=== PATIENT | male | born 1960 | race Caucasian/White ===

== ENCOUNTER → 2017-06-23 | Outpatient (CLI) | payer BC ==
--- NOTE | 2017-06-23 15:13 | PN ---
PROGRESS NOTE A 57-year-old male patient is being seen in [facility] up [facility] to discuss results of the sleep study. Note that the patient presented to me because of concerns of obstructive sleep apnea. He is known to have valvular heart disease. He has also has had multiple other medical problems including, hyperlipidemia, Hodgkin disease, gout and hypothyroidism. The patient underwent a sleep study back in February of 2017. In summary the patient has mild disease with an AHI of 13, slightly worse in the supine body position. No significant nocturnal oxygen desaturation. No significant variability in heart rate. The patient has some degree of sleep fragmentation and arousals throughout the night. Mild periodic limb movements were also noted. On today's evaluation, I discussed the findings with the patient. He states that he is not having any major hypersomnia or sleepiness. He has lost a few pounds. His current [place] score is at 8. He is exploring other options. He is not into the CPAP therapy at this point in time. He does not drink alcoholic beverages at nighttime. He is averaging around 7 hours of sleep at night. He is waking up rather refreshed without having to fall asleep during day-to-day activities. REVIEW OF SYSTEMS: No weight loss or weight gain. No headaches. No change in mental status. No cough or sputum production. No nausea, vomiting, diarrhea, no frequency or urgency. No motor vehicle accidents because of feeling tired and fatigued. No anxiety or depression. No allergic rhinitis or sinus disease at this point. PHYSICAL EXAMINATION: His BP is 107/66, pulse 86, respirations 16, temperature 16, temp 97.8, saturation 96% on room air. BMI 31.5. Weight is 223. Height is 70 inches. An [place] Score is at 8. BMI 31.5. GENERAL APPEARANCE: Calm, comfortable. Head is atraumatic, normocephalic. NECK: Supple. Mallampati class IV. There is no goiter or neck mass. LUNGS: Clear to auscultation. HEART: Sounds regular rhythm. Normal S1, S2. No S3. No murmurs. ABDOMEN: Soft, nontender. No organomegaly. EXTREMITIES: No edema. No cyanosis or clubbing. NEUROLOGIC: Alert and oriented x3. No focal neurological deficits. PSYCHIATRIC: Negative for anxiety or depression. IMPRESSION: 1. Mild obstructive sleep apnea with an AHI of 13 slightly worse in the supine body position. 2. Hypersomnia initial [place] score was 12, currently is down to 8 and the patient is feeling relatively fine for the time being. 3. Obesity with a BMI of 32. 4. Valvular heart disease. 5. Hypothyroidism. 6. Gout. 7. Hyperlipidemia. 8. Hodgkin disease. 9. Allergic rhinitis. PLAN: Discussed options for treatment. The patient was asked to sleep in a sidewise body position. Offered CPAP therapy versus oral appliance. The patient would like to discuss this with his dentist and see if oral appliance will be 1 option for him in regards to his mild obstructive sleep apnea. He is not having major hypersomnia and sleepiness. He would rather wait on treatment for CPAP. I think it is fine as long as the patient is not having any major daytime hypersomnia or sleepiness for the time being. He will be asked to contact me back if his symptoms get worse. Meanwhile going to dentists and fitting oral appliance may be one option in treating mild obstructive sleep apnea. Tight control of cardiovascular risk factors. We will continue to follow and see me if needed. JACQUELINE / IJN: [id number] /
== END ==
LOC: SLEEP 13:45
PROVIDERS: ATTEND Internal Medicine Critical Care Medicine
DX: G47.33 Obstructive sleep apnea (adult) (pediatric) (principal); G47.10 Hypersomnia, unspecified; E66.9 Obesity, unspecified; I08.0 Rheumatic disorders of both mitral and aortic valves; E03.9 Hypothyroidism, unspecified; E78.5 Hyperlipidemia, unspecified; M10.9 Gout, unspecified; C81.90 Hodgkin lymphoma, unspecified, unspecified site; J30.9 Allergic rhinitis, unspecified; Z68.32 Body mass index [BMI] 32.0-32.9, adult

== ENCOUNTER → 2019-04-30 | Outpatient (CLI) | payer BC ==
--- NOTE | 2019-04-30 14:12 | CT ---
EXAMINATION TYPE: CT brain wo con DATE OF EXAM: 04/30/2019 COMPARISON: None HISTORY: Headaches with prior injury 6 weeks ago and history of Hodgkin's lymphoma CT DLP: 2045.7 mGycm Automated exposure control for dose reduction was used. Helical acquisition through the brain using d epartmental protocol FINDINGS: The calvarium is intact. Paranasal sinuses and mastoid air cells as visualized are normal. There is n o hemorrhage or hydrocephalus. Brain volume is age appropriate. Basal ganglia calcifications are note d. There are cerebral vascular calcifications. IMPRESSION: NO ACUTE ABNORMALITIES EVIDENT
== END | disposition home or self-care (01) ==
LOC: RADCTMAIN 12:03
PROVIDERS: ATTEND Internal Medicine
DX: R51 Headache (principal); Z85.71 Personal history of Hodgkin lymphoma
CPT/HCPCS: 70450

== ENCOUNTER 2019-05-06 11:13 | Day surgery (SDC) | payer BC ==
[2019-05-04 11:49] VITALS: BMI 29.8
[~2019-05-06 11:13] MED LIST: LACTATED RINGERS 1,000 ML IV SCH; LIDOCAINE 1% 20 ML VIAL (10MG/ML) FOR IV START INTRADERMA PRN
[2019-05-06 11:59] VITALS: TEMP 97.1
[2019-05-06] MEDS ORDERED: PROPOFOL 10 MG/ML 20 ML VIAL IV ONE (12:50)
--- NOTE | 2019-05-06 13:13 | P.PCN ---
Date of Procedure: 05/06/19 Procedure(s) Performed: BRIEF HISTORY: Patient is a 59-year-old pleasant white male scheduled for an elective colonoscopy as a part of screening for colorectal neoplasia PROCEDURE PERFORMED: Colonoscopy with biopsy. PREOPERATIVE DIAGNOSIS: screening for colon cancer IV sedation per Anesthesia. PROCEDURE: After informed consent was obtained, the patient, was brought into the endoscopy unit. IV sedation was administered by Anesthesia under continuous monitoring. Digital rectal examination was normal. Initially the Olympus CF-160 flexible video colonoscope was then inserted in the rectum, gradually advanced into the cecum without any difficulty. Careful examination was performed as the scope was gradually being withdrawn. Ileocecal valve and the appendiceal orifice were visualized and appeared normal. Prep was excellent. Mucosa of the cecum, ascending colon,appeared normal. In the transverse colon there was a 2 mm sessile polyp removed by cold biopsy. In the sigmoid colon dear was another 2-3 mm polyp that was removed by cold biopsy. Rest of the transverse colon, descending colon, sigmoid colon, and rectum appeared normal. Retroflexion was performed in the rectum and no lesions were seen. The patient tolerated the procedure well. IMPRESSION: 2 mm transverse colon polyp status post removal by cold biopsy 2-3 mm sigmoid: Polyp status post removal by cold biopsy Rest of the colon appeared normal RECOMMENDATIONS: Findings of this examination were discussed with the patient as well as his family. He was advised to follow with the biopsy results. If the biopsy confirms presence of adenoma, he can have a repeat colonoscopy in 5 years.
[2019-05-06 13:27] VITALS: BP 119/72; PULSE 89; RESP 16
== END 2019-05-06 14:15 | disposition home or self-care (01) ==
LOC: ORWHC2ENDO 11:13
PROVIDERS: ATTEND Internal Medicine Gastroenterology
DX: Z12.11 Encounter for screening for malignant neoplasm of colon (principal); D12.5 Benign neoplasm of sigmoid colon; D12.3 Benign neoplasm of transverse colon; I10 Essential (primary) hypertension; E78.5 Hyperlipidemia, unspecified; E07.9 Disorder of thyroid, unspecified; Z79.899 Other long term (current) drug therapy; Z85.71 Personal history of Hodgkin lymphoma; Z79.890 Hormone replacement therapy
CPT/HCPCS: 88305; 45380; J2704

== ENCOUNTER 2019-06-23 07:40 | Day surgery (SDC) | payer BC ==
[2019-06-21 11:44] VITALS: BMI 31.4
[2019-06-23] MEDS ORDERED: SODIUM CHLORIDE 0.9% 500 ML 500 ML IV ONE (07:59)
[2019-06-23 08:30] VITALS: TEMP 97.6
[2019-06-23] MEDS ORDERED: fentaNYL (PF) 50 MCG/ML 2 ML AMP ONE (08:38)
[2019-06-23] MEDS ORDERED: BENZOCAINE SPRAY 1 CAN TOPICAL ONE (09:04)
[2019-06-23] MEDS ORDERED: MIDAZOLAM 2 MG/2 ML VIAL IV ONE ×2 (09:28)
[2019-06-23] MEDS ORDERED: fentaNYL (PF) 50 MCG/ML 2 ML AMP IV ONE (09:29)
[2019-06-23] MEDS ORDERED: FEXOFENADINE HCL 180 MG PO PRN (09:51)
[2019-06-23] MEDS ORDERED: SODIUM CHLORIDE 0.9% 1,000 ML IV SCH (10:00)
--- NOTE | 2019-06-23 10:16 | ECHOT ---
TRANSESOPHAGEAL ECHOCARDIOGRAM INDICATION: Evaluation of aortic valve. PROCEDURE: After explaining the procedure to the patient its risks and the complications, his blood pressure, heart rate, O2 saturation was monitored. The throat was sprayed with Cetacaine. He received 3 mg intravenous Versed, 50 mcg intravenous fentanyl. The probe was introduced esophagus without difficulties. Images were obtained. Following that, the probe was removed. There was no immediate complication. FINDINGS: Left atrial size is mildly dilated. Left atrial appendage is normal. Left ventricular size is normal. The overall systolic function is mildly impaired with ejection fraction of 50%. The aortic valve is a tricuspid valve calcified with a valve area is 1.3 centimeters square by planimetry. The mitral valve revealed mild calcification of mitral valve leaflets. The tricuspid valve is normal. Pulmonic valve is normal. Descending thoracic aorta appears to be normal. Contrast bubble study revealed no evidence of shunting across the interatrial septum with Valsalva maneuver. There was no pericardial effusion. Doppler pulse wave and color Doppler obtained revealed moderate mitral and aortic regurgitation with mild tricuspid regurgitation. The peak gradient across the aortic valve was 23 mmHg with a mean of 14 mmHg. There was no shunting by color Doppler study. CONCLUSION: 1. Normal left ventricular size with ejection fraction 50%. 2. Mildly dilated left atrium. 3. Tricuspid aortic valve with mild to moderate aortic stenosis and moderate aortic regurgitation. 4. Moderate mitral regurgitation. 5. Mild tricuspid regurgitation. 6. Normal appearance of the descending thoracic aorta. 7. There was no shunting across the interatrial septum. MMODL / IJN: [id number] /
[2019-06-23 10:17] VITALS: RESP 16
[2019-06-23 10:30] VITALS: BP 133/83; PULSE 107
[2019-06-23] MEDS ORDERED: NON FORMULARY DRUG (Omega-3 Fatty Acids [Omega-3] 1,000 MG) PO SCH (21:00)
[2019-06-24] MEDS ORDERED: LEVOTHYROXINE 50 MCG TAB PO SCH (09:00)
[2019-06-24] MEDS ORDERED: LISINOPRIL 2.5 MG TAB PO SCH (09:00)
[2019-06-24] MEDS ORDERED: ATORVASTATIN 40 MG TAB PO SCH (09:00)
[2019-06-24] MEDS ORDERED: METOPROLOL TARTRATE 25 MG TAB PO SCH (09:00)
[2019-06-24] MEDS ORDERED: NON FORMULARY DRUG (Omeprazole [Omeprazole] 20 MG) PO SCH (09:00)
[2019-06-24] MEDS ORDERED: EZETIMIBE 10 MG TAB PO SCH (09:00)
== END 2019-06-23 10:50 | disposition home or self-care (01) ==
LOC: CATHCVL 07:40
PROVIDERS: ATTEND Internal Medicine Interventional Cardiology
DX: I08.3 Combined rheumatic disorders of mitral, aortic and tricuspid valves (principal); I42.8 Other cardiomyopathies; I10 Essential (primary) hypertension; E78.2 Mixed hyperlipidemia; G47.33 Obstructive sleep apnea (adult) (pediatric); M25.50 Pain in unspecified joint; F17.210 Nicotine dependence, cigarettes, uncomplicated; Z79.899 Other long term (current) drug therapy; Z79.890 Hormone replacement therapy
CPT/HCPCS: 93312; 93320; 93325; J2250; J3010

== ENCOUNTER → 2019-10-06 | Outpatient (CLI) | payer BC | END | disposition home or self-care (01) | LOC: LABWHC1 14:02 | PROVIDERS: ATTEND Internal Medicine | DX: R06.02 Shortness of breath (principal) | CPT/HCPCS: 36415; 86769 ==

== ENCOUNTER 2020-01-17 05:54 | Day surgery (SDC) | payer BC ==
[2020-01-16 10:21] VITALS: BMI 31.1
[2020-01-17] MEDS ORDERED: ASPIRIN 325 MG TAB PO STA (05:57)
[2020-01-17] MEDS ORDERED: ALPRAZolam 0.25 MG TAB PO PRN (05:57)
[2020-01-17] MEDS ORDERED: NITROGLYCERIN SL TABS 0.4 MG TAB SUBLINGUAL PRN (05:57)
[2020-01-17] MEDS ORDERED: SODIUM CHLORIDE 0.9% 1,000 ML in EMPTY BAG 1 BAG IV ONE (05:57)
[2020-01-17] MEDS ORDERED: ATORVASTATIN 80 MG TAB PO STA (05:57)
[2020-01-17] MEDS ORDERED: ALPRAZolam 0.5 MG TAB PO PRN (05:57)
[2020-01-17] MEDS ORDERED: ASPIRIN 81 MG ONE (06:15)
[2020-01-17 06:23] VITALS: RESP 16; TEMP 98.6
[2020-01-17] MEDS ORDERED: SODIUM CHLORIDE 0.9% 1,000 ML IV ONE (06:23)
[2020-01-17 06:29] LABS: Basophils # (A) 0.1 k/uL (0-0.2); Basophils % (A) 1 %; Eosinophils # (A) 0.3 k/uL (0-0.7); Eosinophils % (A) 4 %; HGB 15.3 gm/dL (13.0-17.5); Lymphocytes # (A) 2.8 k/uL (1.0-4.8); Lymphocytes % (A) 32 %; MCH 30.2 pg (25.0-35.0); MCHC 34.1 g/dL (31.0-37.0); MCV 88.8 fL (80.0-100.0); Mean Platelet Volume 9.1; Monocytes # (A) 0.8 k/uL (0-1.0); Monocytes % (A) 9 %; Neutrophils # (A) 4.6 k/uL (1.3-7.7); Neutrophils % (A) 51 %; Platelet Count 260 k/uL (150-450); RBC 5.07 m/uL (4.30-5.90); RDW 14.5 % (11.5-15.5)
[2020-01-17 06:41] LABS: African American GFR (CKD) >90 (>60 ml/min/1.73 sqM); Anion Gap 11 mmol/L; Blood Urea Nitrogen 22 mg/dL (9-20); Calcium 9.4 mg/dL (8.4-10.2); Carbon Dioxide 26 mmol/L (22-30); Chloride 104 mmol/L (98-107); Glucose 138 mg/dL (74-99); Non-African American GFR(CKD) >90 (>60 ml/min/1.73 sqM); Potassium 4.3 mmol/L (3.5-5.1); Sodium 141 mmol/L (137-145)
[2020-01-17] MEDS ORDERED: fentaNYL (PF) 50 MCG/ML 2 ML AMP IV ONE (07:27)
[2020-01-17] MEDS ORDERED: LIDOCAINE 1% INJ 10MG/ML (20 ML MDV) SQ ONE (07:31)
[2020-01-17] MEDS ORDERED: MIDAZOLAM 2 MG/2 ML VIAL IVP ONE (07:32)
[2020-01-17] MEDS: VERAPAMIL SYRINGE (5 MG/10 ML) INTRAARTER ONE ×2 (07:34→08:04)
[2020-01-17] MEDS ORDERED: HEPARIN SODIUM 1,000 UN/ML (10ML VL) IV ONE (07:41)
[2020-01-17] MEDS ORDERED: NITROGLYCERIN 1000MCG/10ML SYRINGE INTRACORON ONE (07:42)
[2020-01-17] MEDS ORDERED: IOPAMIDOL-370 125ML BTL INJ ONE (07:52)
[2020-01-17] MEDS ORDERED: ADENOSINE 90 MG in SODIUM CHLORIDE 0.9% 60 ML IVP ONE (08:00)
[2020-01-17] MEDS ORDERED: IOPAMIDOL-370 100ML BTL INJ ONE (08:06)
[2020-01-17] MEDS ORDERED: RX INFO: IV CONTRAST WAS GIVEN 1 EACH MISC MISCELLANE PRN (08:25)
[2020-01-17] MEDS ORDERED: CLOBETASOL PROP 0.05% CR 15GM TOPICAL PRN (08:26)
[2020-01-17] MEDS ORDERED: SODIUM CHLORIDE 0.9% 1,000 ML IV SCH (08:30)
[2020-01-17] MEDS ORDERED: NON FORMULARY DRUG (Aspirin [Adult Low Dose Aspirin Ec] 81 MG Tablet.Dr) PO SCH (09:00)
[2020-01-17] MEDS ORDERED: NON FORMULARY DRUG (Omeprazole [Omeprazole] 20 MG Capsule.Dr) PO SCH (09:00)
[2020-01-17] MEDS ORDERED: LEVOTHYROXINE 50 MCG TAB PO SCH (09:00)
[2020-01-17] MEDS ORDERED: NON FORMULARY DRUG (Omega-3 Fatty Acids [Omega-3] 1,000 MG Capsule) PO SCH (09:00)
[2020-01-17] MEDS ORDERED: EZETIMIBE 10 MG TAB PO SCH (09:00)
[2020-01-17] MEDS ORDERED: METOPROLOL TARTRATE 25 MG TAB PO SCH (09:00)
--- NOTE | 2020-01-17 10:13 | CC ---
CARDIAC CATHETERIZATION REPORT Mr. Paredes is a 59-year-old male with known history of hypertension, hyperlipidemia, who has been complaining of episode of chest discomfort that has been sporadic and as well as symptoms of dyspnea. He has a history of mild cardiomyopathy. In view of that, recommendation made regarding cardiac catheterization. The procedures, risks, and complication were discussed with the patient who is in full understanding and agreement. PROCEDURE: Patient was brought to the manager labor relations in a fasting semi-sedated state after receiving fentanyl and Benadryl and achieving moderate conscious sedated state. Using Xylocaine anesthesia and Seldinger technique, a 6-Chinese sheath was introduced in the right radial artery. Selective right and left coronary angiography performed using 5-Chinese, 3.5 bend right and left Leonela catheter, multiple views of the coronary artery including hemiaxial views were obtained. Following that, fraction flow reserve was measured using a 6-Chinese FL3.5 guiding catheter. Following that, a 5-Chinese tight pigtail catheter was introduced into the left ventricle and pressures were calculated. Following that, catheter and sheath were removed. Hemostasis was obtained with deployment of a TR band. There was no immediate complication. Patient is returned to his room in stable condition. Of note, the patient received 5000 units of intravenous heparin as well as intra-arterial verapamil. FINDINGS: LEFT MAIN: This is an almost nonexisting vessel that bifurcates right away to LAD and left circumflex. There was essentially no left main. LEFT ANTERIOR DESCENDING ARTERY: This is a large-sized vessel, reaching toward the apex with a wraparound apex segment, giving rise to a moderately-sized diagonal branch. The left anterior descending artery as well as branches have no evidence of obstructive coronary artery disease. LEFT CIRCUMFLEX: This is a large dominant vessel, bifurcating distally into PDA and posterolateral segment and branches, giving rise to a proximal obtuse marginal branch. The left circumflex at the ostium has an an appearance of 50% to 60% plaque. The first obtuse marginal branch has mild disease proximally of 30%. The rest of the vessel has no high-grade stenosis. RIGHT CORONARY ARTERY: This is a small, nondominant vessel that has a 95% stenosis at the ostium. The rest of the vessel has no high-grade stenosis. The vessel is small in caliber without significant disease. LEFT VENTRICULOGRAM: Left ventriculogram was not performed. HEMODYNAMICS: There was a 19 mmHg gradient across the aortic valve. IFR through the left circumflex was 1.02 and FFR was 93% after infusion of adenosine per protocol. RESULTS: 1. Calcified left anterior descending artery. 2. Significant disease in the ostium of a small nondominant right coronary artery. 3. Moderate obstructive disease in the ostium of the left circumflex by fraction flow reserve. The lesion is non hemodynamically significant. RECOMMENDATION: In view of finding anatomy, I recommend continue medical therapy with aggressive coronary risk modifications being initiated. Those findings and recommendation were discussed with the patient and his family, who are in full understanding and agreement. Duration of the sedation is 36 minutes. MMODL / IJN: [id number] /
[2020-01-17 12:57] VITALS: BP 119/69; PULSE 86
[2020-01-17] MEDS ORDERED: ATORVASTATIN 40 MG TAB PO SCH (21:00)
== END 2020-01-17 12:55 | disposition home or self-care (01) ==
LOC: CATHCVL 05:54
PROVIDERS: ATTEND Internal Medicine Interventional Cardiology
DX: I25.10 Atherosclerotic heart disease of native coronary artery without angina pectoris (principal); I25.84 Coronary atherosclerosis due to calcified coronary lesion; I10 Essential (primary) hypertension; E78.2 Mixed hyperlipidemia; E03.9 Hypothyroidism, unspecified; Z85.71 Personal history of Hodgkin lymphoma; E78.00 Pure hypercholesterolemia, unspecified; Z87.891 Personal history of nicotine dependence; I35.0 Nonrheumatic aortic (valve) stenosis; I42.8 Other cardiomyopathies; G47.33 Obstructive sleep apnea (adult) (pediatric); Z79.82 Long term (current) use of aspirin; Z79.890 Hormone replacement therapy; Z79.899 Other long term (current) drug therapy
CPT/HCPCS: 93571; 93458; 80048; 85025; C1887; C1769; C1894; J2250; J2001; J3010; J1644; J0153; Q9967 ×2

== ENCOUNTER 2020-03-01 10:05 | Inpatient (IN) | payer BC ==
[2020-03-01] MEDS ORDERED: ALBUTEROL HFA INHALER INHALATION STA (10:40)
--- NOTE | 2020-03-01 10:46 | ED ---
General Adult HPI - General Source: patient, RN notes reviewed, old records reviewed Mode of arrival: ambulatory Limitations: no limitations <Chase Nieto - Last Filed: 03/01/20 13:16> <Isaura Toscano - Last Filed: 03/03/20 12:35> - General Chief complaint: Upper Respiratory Infection Stated complaint: +COVID Time Seen by Provider: 03/01/20 10:25 - History of Present Illness Initial comments: 59-year-old male patient to ED. Patient tested positive for coronavirus last week. Patient reports that since then he has been feeling poorly. He is having some shortness of breath after coughing. Feels weak. Reports of chest pain after coughing. Denies any other complaints. Systemic: Pt denies fatigue, fever/chills, rash. Pt denies weakness, night sweats, weight loss. Neuro: Pt denies headache, visual disturbances, syncope or pre-syncope. HEENT: Pt denies ocular discharge or irritation, otalgia, rhinorrhea, pharyngitis or notable lymphadenopathy. Cardiopulmonary: Pt denies heart palpitations, dyspnea on exertion. Abdominal/GI: Pt denies abdominal pain, n/v/d. : Pt denies dysuria, burning w/ urination, frequency/urgency. Denies new onset urinary or bowel incontinence. MSK: Pt denies myalgia, loss of strength or function in extremities. Neuro: Pt denies new onset weakness, paresthesias. (Chase Nieto) - Related Data Home Medications Medication Instructions Recorded Confirmed Atorvastatin [Lipitor] 40 mg PO HS 05/04/19 03/01/20 Ezetimibe [Zetia] 10 mg PO DAILY 05/04/19 03/01/20 Fexofenadine HCl 180 mg PO DAILY PRN 05/04/19 03/01/20 Levothyroxine Sodium [Synthroid] 50 mcg PO DAILY 05/04/19 03/01/20 Metoprolol Tartrate [Lopressor] 12.5 mg PO DAILY 05/04/19 03/01/20 Omeprazole 20 mg PO DAILY 05/04/19 03/01/20 lisinopriL [Zestril] 2.5 mg PO DAILY 05/04/19 03/01/20 Colchicine 0.6 mg PO DAILY PRN 06/23/19 03/01/20 Aspirin [Adult Low Dose Aspirin EC] 81 mg PO DAILY 01/16/20 03/01/20 Clobetasol Propionate [Temovate 1 applic TOPICAL DAILY PRN 01/16/20 03/01/20 0.05% Cream] Latanoprost [Xalatan 0.005%] 1 drop BOTH EYES HS 03/01/20 03/01/20 [place]-3 Acid Ethyl Esters [Lovaza] 1 gm PO BID 03/01/20 03/01/20 Timolol 0.25% Ophth Soln [Timoptic 1 drop BOTH EYES DAILY 03/01/20 03/01/20 0.25% Ophth Soln] Allergies Allergy/AdvReac Type Severity Reaction Status Date / Time No Known Allergies Allergy Verified 03/01/20 11:00 Review of Systems ROS Other: All systems not noted in ROS Statement are negative. <Chase Nieto - Last Filed: 03/01/20 13:16> ROS Other: All systems not noted in ROS Statement are negative. <Isaura Toscano - Last Filed: 03/03/20 12:35> ROS Statement: Those systems with pertinent positive or pertinent negative responses have been documented in the HPI. Past Medical History Past Medical History: Cancer, GERD/Reflux, Hyperlipidemia, Skin Disorder, Sleep Apnea/CPAP/BIPAP, Thyroid Disorder Additional Past Medical History / Comment(s): dx Hodgkins Lymphoma at age 24-tx radiation therapy. "chest discomfort/tightness", one heart valve "does not close all the way", no cpap used, occ. gout, eczema, History of Any Multi-Drug Resistant Organisms: None Reported Past Surgical History: Adenoidectomy, Tonsillectomy Additional Past Surgical History / Comment(s): Biopsy of abdominal organs and mass rt side of neck removed when dx. with Lymphoma, partial spleenectomy. Colonoscopy. MIA Past Anesthesia/Blood Transfusion Reactions: Motion Sickness Past Psychological History: No Psychological Hx Reported Smoking Status: Former smoker Past Alcohol Use History: Rare Past Drug Use History: None Reported - Past Family History Sister(s) Family Medical History: Cancer Mother Family Medical History: No Reported History <Chase Nieto - Last Filed: 03/01/20 13:16> - Past Family History Sister(s) Family Medical History: Cancer Mother Family Medical History: No Reported History Additional Family Medical History / Comment(s): Mother of chf at the age of 84 yrs. Father Family Medical History: No Reported History Additional Family Medical History / Comment(s): Father was healthy and lived to be 96 yrs old. <Isaura Toscano - Last Filed: 03/03/20 12:35> General Exam Limitations: no limitations <Chase Nieto - Last Filed: 03/01/20 13:16> - General Exam Comments Initial Comments: Constitutional: NAD, AOX3, Pt has pleasant affect. HEENT: NC/AT, trachea midline, neck supple, no lymphadenopathy. External ears appear normal, without discharge. Mucous membranes moist. Eyes PERRLA, EOM intact. There is no scleral icterus. No pallor noted. Cardiopulmonary: RRR, no murmurs, rubs or gallops, no JVD noted. Mild Rales are noted. No peripheral edema. Abdominal exam: Abdomen soft and non-distended. Abdomen non-tender to palpation in all 4 quadrants. Bowel sounds active in LLQ. No hepatosplenomegaly. No ecchymosis Neuro: CN II-XII grossly intact. No nuchal rigidity. MSK: No posterior calf tenderness bilaterally, homans sign negative bilaterally. Posterior tibialis and radial pulse +2 bilaterally. Sensation intact in upper and lower extremities. Full active ROM in upper and lower extremities, 5/5 stregnth. (Chase Nieto) Course Vital Signs 03/01/20 03/01/20 10:16 13:37 Temperature 99 F Pulse Rate 83 98 Respiratory 18 18 Rate Blood Pressure 113/68 108/75 O2 Sat by Pulse 96 92 L Oximetry Medical Decision Making - Lab Data Result diagrams: 03/01/20 11:01 03/01/20 11:01 - EKG Data -: EKG Interpreted by Me (and Dr. Toscano ) <Chase Nieto - Last Filed: 03/01/20 13:16> - Lab Data Result diagrams: 03/03/20 06:20 03/01/20 11:01 <Isaura Toscano - Last Filed: 03/03/20 12:35> - Medical Decision Making 59-year-old male patient to ED for evaluation, patient covid positive reporting feeling worse at home weak and short of breath. Vital signs are stable, afebrile. Physical exam displayed some mild rales. Just recently pneumonia. Inflammatory mediators elevated. Patient will be admitted for further evaluation. Case discussed with Dr. Toscano. (Chase Nieto) I was available for consultation in the emergency department. The history and physical exam were done by the midlevel provider. I was consulted for this patients care. I reviewed the case with the midlevel provider and based on their presentation of the patient, I agree with the assessment, medical decision making and plan of care as documented. Chart was dictated using [employer] dictation software. Attempts were made to correct any dictation errors however some typographical errors may persist. Patient was seen during a national state of emergency due to the Covid-19 pandemic. (Isaura Toscano) - Lab Data Lab Results 03/01/20 03/01/20 03/01/20 Range/Units 11:01 11:01 11:01 WBC 8.5 (3.8-10.6) k/uL RBC 4.75 (4.30-5.90) m/uL Hgb 14.7 (13.0-17.5) gm/dL Hct 42.5 (39.0-53.0) % MCV 89.5 (80.0-100.0) fL MCH 30.9 (25.0-35.0) pg MCHC 34.5 (31.0-37.0) g/dL RDW 14.0 (11.5-15.5) % Plt Count 214 (150-450) k/uL MPV 10.0 Neutrophils % 76 % Lymphocytes % 13 % Monocytes % 7 % Eosinophils % 0 % Basophils % 2 % Neutrophils # 6.5 (1.3-7.7) k/uL Lymphocytes # 1.1 (1.0-4.8) k/uL Monocytes # 0.6 (0-1.0) k/uL Eosinophils # 0.0 (0-0.7) k/uL Basophils # 0.1 (0-0.2) k/uL PT 9.8 (9.0-12.0) sec INR 0.9 (<1.2) APTT 27.1 (22.0-30.0) sec Sodium 136 L (137-145) mmol/L Potassium 4.0 (3.5-5.1) mmol/L Chloride 99 (98-107) mmol/L Carbon Dioxide 28 (22-30) mmol/L Anion Gap 9 mmol/L BUN 18 (9-20) mg/dL Creatinine 1.06 (0.66-1.25) mg/dL Est GFR (CKD-EPI)AfAm 88 (>60 ml/min/1.73 sqM) Est GFR (CKD-EPI)NonAf 77 (>60 ml/min/1.73 sqM) Glucose 132 H (74-99) mg/dL Plasma Lactic Acid Conner (0.7-2.0) mmol/L Calcium 8.9 (8.4-10.2) mg/dL Magnesium 2.2 (1.6-2.3) mg/dL Ferritin 2062.8 H (22.0-322.0) ng/mL Total Bilirubin 0.8 (0.2-1.3) mg/dL AST 49 (17-59) U/L ALT 29 (4-49) U/L Alkaline Phosphatase 62 (38-126) U/L Lactate Dehydrogenase 654 H (313-618) U/L Troponin I (0.000-0.034) ng/mL C-Reactive Protein 189.8 H (<10.0) mg/L Total Protein 7.6 (6.3-8.2) g/dL Albumin 4.1 (3.5-5.0) g/dL Procalcitonin (0.02-0.09) ng/mL 03/01/20 03/01/20 03/01/20 Range/Units 11:01 11:01 11:01 WBC (3.8-10.6) k/uL RBC (4.30-5.90) m/uL Hgb (13.0-17.5) gm/dL Hct (39.0-53.0) % MCV (80.0-100.0) fL MCH (25.0-35.0) pg MCHC (31.0-37.0) g/dL RDW (11.5-15.5) % Plt Count (150-450) k/uL MPV Neutrophils % % Lymphocytes % % Monocytes % % Eosinophils % % Basophils % % Neutrophils # (1.3-7.7) k/uL Lymphocytes # (1.0-4.8) k/uL Monocytes # (0-1.0) k/uL Eosinophils # (0-0.7) k/uL Basophils # (0-0.2) k/uL PT (9.0-12.0) sec INR (<1.2) APTT (22.0-30.0) sec Sodium (137-145) mmol/L Potassium (3.5-5.1) mmol/L Chloride (98-107) mmol/L Carbon Dioxide (22-30) mmol/L Anion Gap mmol/L BUN (9-20) mg/dL Creatinine (0.66-1.25) mg/dL Est GFR (CKD-EPI)AfAm (>60 ml/min/1.73 sqM) Est GFR (CKD-EPI)NonAf (>60 ml/min/1.73 sqM) Glucose (74-99) mg/dL Plasma Lactic Acid Conner 1.4 (0.7-2.0) mmol/L Calcium (8.4-10.2) mg/dL Magnesium (1.6-2.3) mg/dL Ferritin (22.0-322.0) ng/mL Total Bilirubin (0.2-1.3) mg/dL AST (17-59) U/L ALT (4-49) U/L Alkaline Phosphatase (38-126) U/L Lactate Dehydrogenase (313-618) U/L Troponin I <0.012 (0.000-0.034) ng/mL C-Reactive Protein (<10.0) mg/L Total Protein (6.3-8.2) g/dL Albumin (3.5-5.0) g/dL Procalcitonin 0.09 (0.02-0.09) ng/mL - EKG Data EKG Comments: Ventricular rate 102, [place] interval 194, QRS 84, QT/QTC 366/477. Sinus tachycardia. Otherwise normal EKG. No concern for acute ischemia at this time. (Chase Nieto) Disposition Is patient prescribed a controlled substance at d/c from ED?: No <Chase Nieto - Last Filed: 03/01/20 13:16> <Isaura Toscano - Last Filed: 03/03/20 12:35> Clinical Impression: Pneumonia due to COVID-19 virus Disposition: ADMITTED IP TO THIS HOSP Condition: Serious
[2020-03-01 11:26] LABS: Albumin 4.1 g/dL (3.5-5.0); Calcium 8.9 mg/dL (8.4-10.2); Magnesium 2.2 mg/dL (1.6-2.3); Total Bilirubin 0.8 mg/dL (0.2-1.3); Total Protein 7.6 g/dL (6.3-8.2)
--- NOTE | 2020-03-01 11:31 | XR ---
EXAMINATION TYPE: XR chest 2V DATE OF EXAM: 03/01/2020 COMPARISON: NONE HISTORY: Covid positive, chest pain and sore throat TECHNIQUE: Frontal and lateral views of the chest are obtained. FINDINGS: Bilateral airspace disease is present. There is no evident pneumothorax. Apical pleural th ickening present on the right, there is increased paratracheal density. Heart size is normal. Aorta i s dense. Difficult to exclude small pleural effusion. Surgical clips present in left upper quadrant. IMPRESSION: Findings suggest pneumonia. Follow-up is recommended. Probable associated right pleural effusion is abnormal apical pleural thickening on the right.
[2020-03-01 11:36] LABS: Basophils # (A) 0.1 k/uL (0-0.2); Basophils % (A) 2 %; Eosinophils % (A) 0 %; HCT 42.5 % (39.0-53.0); HGB 14.7 gm/dL (13.0-17.5); Lymphocytes # (A) 1.1 k/uL (1.0-4.8); Lymphocytes % (A) 13 %; MCH 30.9 pg (25.0-35.0); MCHC 34.5 g/dL (31.0-37.0); MCV 89.5 fL (80.0-100.0); Monocytes # (A) 0.6 k/uL (0-1.0); Monocytes % (A) 7 %; Neutrophils # (A) 6.5 k/uL (1.3-7.7); Neutrophils % (A) 76 %; Platelet Count 214 k/uL (150-450); RBC 4.75 m/uL (4.30-5.90); WBC 8.5 k/uL (3.8-10.6)
[2020-03-01 11:40] LABS: C Reactive Protein 189.8 mg/L (<10.0)
[2020-03-01 11:55] LABS: INR 0.9 (<1.2); Partial Thromboplastin Time 27.1 sec (22.0-30.0); Prothrombin Time 9.8 sec (9.0-12.0)
[2020-03-01] MEDS ORDERED: NALOXONE 0.4 MG/ML 1 ML VIAL IV PRN (13:14)
[2020-03-01] MEDS ORDERED: ACETAMINOPHEN TAB 325 MG TAB PO PRN (13:14)
[2020-03-01] MEDS ORDERED: dexAMETHasone 2 MG TAB PO STA (13:17)
--- NOTE | 2020-03-01 14:57 | P.HPIM ---
History of Present Illness H&P Date: 03/01/20 This is a 59-year-old male with past medical history noted below who presented to the emergency room with worsening shortness of breath and malaise. Patient symptoms started approximately a week ago last Thursday when he was having flulike symptoms associated with chills and generalized fatigue and some cough. On Thursday he went to a local urgent care and got tested for Covid19. 2 days ago on Thursday he got a report that the test was positive. He started taking zinc and vitamin C supplements. He said that his symptoms are getting worse. He is having more shortness of breath with cough that is generally unproductive and occasionally productive of some sputum. He reported having chills at home but no documented fever. He was concerned and decided to come to the emergency room for further evaluation. In the ER, chest x-ray was suggestive for bilateral pneumonia. Patient will be admitted to the hospital for further evaluation and management. Review of Systems Review of system: 14 points review of systems were obtained and were negative except to what were mentioned in the HPI. Past Medical History Past Medical History: Cancer, GERD/Reflux, Hyperlipidemia, Skin Disorder, Sleep Apnea/CPAP/BIPAP, Thyroid Disorder Additional Past Medical History / Comment(s): dx Hodgkins Lymphoma at age 24-tx radiation therapy. "chest discomfort/tightness", one heart valve "does not close all the way", no cpap used, occ. gout, eczema, History of Any Multi-Drug Resistant Organisms: None Reported Past Surgical History: Adenoidectomy, Tonsillectomy Additional Past Surgical History / Comment(s): Biopsy of abdominal organs and mass rt side of neck removed when dx. with Lymphoma, partial spleenectomy. Colonoscopy. MIA Past Anesthesia/Blood Transfusion Reactions: Motion Sickness Past Psychological History: No Psychological Hx Reported Smoking Status: Former smoker Past Alcohol Use History: Rare Past Drug Use History: None Reported - Past Family History Sister(s) Family Medical History: Cancer Mother Family Medical History: No Reported History Medications and Allergies Home Medications Medication Instructions Recorded Confirmed Type Atorvastatin [Lipitor] 40 mg PO HS 05/04/19 03/01/20 History Ezetimibe [Zetia] 10 mg PO DAILY 05/04/19 03/01/20 History Fexofenadine HCl 180 mg PO DAILY PRN 05/04/19 03/01/20 History Levothyroxine Sodium [Synthroid] 50 mcg PO DAILY 05/04/19 03/01/20 History Metoprolol Tartrate [Lopressor] 12.5 mg PO DAILY 05/04/19 03/01/20 History Omeprazole 20 mg PO DAILY 05/04/19 03/01/20 History lisinopriL [Zestril] 2.5 mg PO DAILY 05/04/19 03/01/20 History Colchicine 0.6 mg PO DAILY PRN 06/23/19 03/01/20 History Aspirin [Adult Low Dose Aspirin EC] 81 mg PO DAILY 01/16/20 03/01/20 History Clobetasol Propionate [Temovate 1 applic TOPICAL DAILY PRN 01/16/20 03/01/20 History 0.05% Cream] Latanoprost [Xalatan 0.005%] 1 drop BOTH EYES HS 03/01/20 03/01/20 History [place]-3 Acid Ethyl Esters [Lovaza] 1 gm PO BID 03/01/20 03/01/20 History Timolol 0.25% Ophth Soln [Timoptic 1 drop BOTH EYES DAILY 03/01/20 03/01/20 History 0.25% Ophth Soln] Allergies Allergy/AdvReac Type Severity Reaction Status Date / Time No Known Allergies Allergy Verified 03/01/20 11:00 Physical Exam Vitals: Vital Signs Temp Pulse Resp BP Pulse Ox 03/01/20 13:37 98 18 108/75 92 L 03/01/20 10:16 99 F 83 18 113/68 96 Intake and Output 02/29/20 03/01/20 03/01/20 22:59 06:59 14:59 Other: Weight 104.326 kg General: The patient is awake and alert, in no distress Eye: there is normal conjunctiva bilaterally. Neck: The neck is supple, there is no JVD. Cardiovascular: Normal S1-S2, no S3-S4, no murmurs. Respiratory: Lungs clear to auscultation bilaterally Gastrointestinal: Abdomen is soft, nontender Musculoskeletal: There is no pedal edema. Neurological:. Speech is normal. Skin: Skin is warm and dry Results CBC & Chem 7: 03/01/20 11:01 03/01/20 11:01 Labs: Abnormal Lab Results - Last 24 Hours (Table) 03/01/20 Range/Units 11:01 Sodium 136 L (137-145) mmol/L Glucose 132 H (74-99) mg/dL Lactate Dehydrogenase 654 H (313-618) U/L C-Reactive Protein 189.8 H (<10.0) mg/L Assessment and Plan Assessment: 1. Covid19 pneumonia, [id number] test reported positive at an outside urgent ca re 2 days ago per patient report. Repeat PCR done in the ER pending. Patient has elevated inflammatory markers including CRP and LDH. No evidence of hypoxia at rest or with ambulation. Onset of symptoms 6 days ago. We will continue supportive care. Decadron 6 mg daily day 04/22. Supplements with zinc, vitamin C, and melatonin. Albuterol inhaler as needed. We will monitor inflammatory markers. I would also cover with antibiotic for bacterial pneumonia awaiting for calcitonin. Started on IV ceftriaxone and azithromycin. 2. Chronic medical problems: Essential hypertension, hyperlipidemia, hypothyroidism, history of gout, valvular heart disease, stable continue home medication 3. DVT prophylaxis with subcu Lovenox Today, I reviewed his medication list and lab work results. Continue IV fluid hydration with normal saline at 75 mL per hour. We will monitor clinical status closely. Repeat inflammatory markers tomorrow.
[2020-03-01] MEDS ORDERED: COLCHICINE 0.6 MG EACH PO PRN (15:00)
[2020-03-01] MEDS: SODIUM CHLORIDE 0.9% 1,000 ML IV SCH ×2 (15:37→20:39)
[2020-03-01] MEDS: ASCORBIC ACID 500 MG TAB PO SCH (15:37)
[2020-03-01] MEDS: ENOXAPARIN 40 MG/0.4 ML SYRINGE SQ SCH (15:37)
[2020-03-01] MEDS: ZINC SULFATE 220 MG CAP PO SCH (15:38)
[2020-03-01] MEDS ORDERED: AZITHROMYCIN 500 MG TAB PO SCH (16:00)
--- NOTE | 2020-03-01 17:55 | P.CNPUL ---
History of Present Illness Consult date: 03/01/20 Requesting physician: Jabari Dill Reason for consult: dyspnea, abnormal CXR/CT Chief complaint: Fatigue, weakness, shortness of breath History of present illness: This is a very pleasant 59-year-old gentleman who follows with Dr. Ferguson as his primary care provider. He has a history of Hodgkin's lymphoma status post radiation, valvular heart disease, obstructive sleep apnea not requiring CPAP, hyperlipidemia, gastroesophageal reflux disease, splenectomy. He presented here to the emergency room earlier this morning with complaints of increasing shortness of breath, fatigue, malaise and weakness. He also had flulike symptoms associated with chills and dry cough. 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 He had been tested on 02/25/2020 at an urgent care center was positive for CoVID 19. Influenza screen negative. Chest x-ray does reveal evidence of bilateral pneumonia. We are consulted for the same. He is seen today on the regular medical floor. He is currently awake and alert. He is currently maintaining O2 saturation in the low 90s on 2 L/m per nasal. Afebrile. Hemodynamically stable. White count 8.5. Hemoglobin 14.7. Sodium 136. Potassium 4.0. Creatinine 1.06. She is LDH 654. C-reactive protein 189. Troponin negative times one. Lactic acid 1.4. He's been initiated on ceftriaxone and azithromycin. He's also been initiated on vitamin C, Decadron, zinc. 0.9 normal saline at 75 ML's per hour. Review of Systems REVIEW OF SYSTEMS: CONSTITUTIONAL: Positive for generalized weakness, fatigue, flulike symptoms. Denies any recent significant weight loss or weight gain. EYES: Denies change in vision. EARS, NOSE, MOUTH, THROAT: Denies headaches, denies sore throat. CARDIOVASCULAR: Denies chest pain, palpitations or syncopal episodes. RESPIRATORY: Acid of 4 shortness of breath, cough, congestion no hemoptysis. GASTROINTESTINAL: Denies change in appetite, denies abdominal pain GENITOURINARY: Denies hematuria, denies infections. MUSKULOSKELETAL: Denies pain, denies swelling. INTEGUMENTARY: Denies rash, denies eczema. NEUROLOGICAL: Denies recent memory loss, no recent seizure activity. PSYCHIATRIC: Denies anxiety, denies depression. HEMATOLOGIC/LYMPHATIC: Denies anemia, denies enlarged lymph nodes. s Past Medical History Past Medical History: Cancer, GERD/Reflux, Hyperlipidemia, Skin Disorder, Sleep Apnea/CPAP/BIPAP, Thyroid Disorder Additional Past Medical History / Comment(s): dx Hodgkins Lymphoma at age 24-tx radiation therapy. "chest discomfort/tightness", one heart valve "does not close all the way", no cpap used, occ. gout, eczema, History of Any Multi-Drug Resistant Organisms: None Reported Past Surgical History: Adenoidectomy, Tonsillectomy Additional Past Surgical History / Comment(s): Biopsy of abdominal organs and mass rt side of neck removed when dx. with Lymphoma, partial spleenectomy. Colonoscopy. MIA Past Anesthesia/Blood Transfusion Reactions: Motion Sickness Past Psychological History: No Psychological Hx Reported Smoking Status: Former smoker Past Alcohol Use History: Rare Past Drug Use History: None Reported - Past Family History Sister(s) Family Medical History: Cancer Mother Family Medical History: No Reported History Additional Family Medical History / Comment(s): Mother of chf at the age of 84 yrs. Father Family Medical History: No Reported History Additional Family Medical History / Comment(s): Father was healthy and lived to be 96 yrs old. Medications and Allergies Home Medications Medication Instructions Recorded Confirmed Type Atorvastatin [Lipitor] 40 mg PO HS 05/04/19 03/01/20 History Ezetimibe [Zetia] 10 mg PO DAILY 05/04/19 03/01/20 History Fexofenadine HCl 180 mg PO DAILY PRN 05/04/19 03/01/20 History Levothyroxine Sodium [Synthroid] 50 mcg PO DAILY 05/04/19 03/01/20 History Metoprolol Tartrate [Lopressor] 12.5 mg PO DAILY 05/04/19 03/01/20 History Omeprazole 20 mg PO DAILY 05/04/19 03/01/20 History lisinopriL [Zestril] 2.5 mg PO DAILY 05/04/19 03/01/20 History Colchicine 0.6 mg PO DAILY PRN 06/23/19 03/01/20 History Aspirin [Adult Low Dose Aspirin EC] 81 mg PO DAILY 01/16/20 03/01/20 History Clobetasol Propionate [Temovate 1 applic TOPICAL DAILY PRN 01/16/20 03/01/20 History 0.05% Cream] Latanoprost [Xalatan 0.005%] 1 drop BOTH EYES HS 03/01/20 03/01/20 History [place]-3 Acid Ethyl Esters [Lovaza] 1 gm PO BID 03/01/20 03/01/20 History Timolol 0.25% Ophth Soln [Timoptic 1 drop BOTH EYES DAILY 03/01/20 03/01/20 History 0.25% Ophth Soln] Allergies Allergy/AdvReac Type Severity Reaction Status Date / Time No Known Allergies Allergy Verified 03/01/20 11:00 Physical Exam Vitals: Vital Signs Temp Pulse Pulse Resp BP BP Pulse Ox 03/01/20 15:20 98.9 F 111 H 22 130/83 92 L 03/01/20 13:37 98 18 108/75 92 L 03/01/20 10:16 99 F 83 18 113/68 96 Intake and Output 03/01/20 03/01/20 03/01/20 06:59 14:59 22:59 Other: Weight 104.326 kg GENERAL EXAM: Alert, pleasant 59-year-old gentleman, on room air, fairly comfortable in no apparent distress. HEAD: Normocephalic. EYES: Normal reaction of pupils, equal size. NOSE: Clear with pink turbinates. THROAT: No erythema or exudates. NECK: No masses, no JVD. CHEST: No chest wall deformity. LUNGS: Equal air entry with bilateral scattered rhonchi. CVS: S1 and S2 normal with no audible murmur, regular rhythm. ABDOMEN: No hepatosplenomegaly, normal bowel sounds, no guarding or rigidity. SPINE: No scoliosis or deformity SKIN: No rashes CENTRAL NERVOUS SYSTEM: No focal deficits, tone is normal in all 4 extremities. EXTREMITIES: There is no peripheral edema. No clubbing, no cyanosis. Per ipheral pulses are intact. Results - Laboratory Findings CBC and BMP: 03/01/20 11:01 03/01/20 11:01 PT/INR, D-dimer PT 9.8 sec (9.0-12.0) 03/01/20 11: INR 0.9 (<1.2) 03/01/20 11:01 Abnormal lab findings: Abnormal Labs 03/01/20 11:01 Sodium 136 L Glucose 132 H Lactate Dehydrogenase 654 H C-Reactive Protein 189.8 H - Diagnostic Findings Chest x-ray: image reviewed Assessment and Plan Assessment: 1 Acute CoVID 19 pneumonia, reported positive test on 02/25/2020, PCR pending 2 Elevated inflammatory markers secondary to above 3 Obesity 4 Mild obstructive sleep apnea with an AHI of 13, not currently on CPAP 5 valvular heart disease 6 Hypothyroidism 7 History of gout 8 Hyperlipidemia 9 History of Hodgkin's lymphoma with previous radiation 10 Splenectomy 11 Former smoker Plan: The patient was seen and evaluated by Dr. Sampson Chest x-ray and labs reviewed Pro calcitonin pending, may discontinue antibiotics Continue treatment for CoVID 19 infection Initiate Remdesivir Lovenox, dexamethasone, melatonin, PPI, zinc, vitamin C, vitamin D Chest x-ray in a.m. We will continue to follow and make further recommendations based on his c linical status I, the cosigning physician, performed a history & physical examination of the patient. Lungs sounds bilateral scattered rhonchi. Maintaining good O2 saturations in the 90s on 2 L/m per nasal cannula. I discussed the assessment and plan of care with my nurse practitioner, Sofiya Patel. I attest to the above note as dictated by her. Time with Patient: Greater than 30
[2020-03-01] MEDS ORDERED: REMDESIVIR (EUA) 200 MG in SODIUM CHLORIDE 0.9% 250 ML IVPB ONE (20:00)
[2020-03-01 20:13] LABS: Ferritin 2062.8 ng/mL (22.0-322.0)
[2020-03-01] MEDS: ATORVASTATIN 40 MG TAB PO SCH (20:38)
[2020-03-01] MEDS: MELATONIN 5 MG TABLET PO SCH (20:38)
[2020-03-01] MEDS: guaiFENesin 600 MG TABLET.ER PO SCH (20:38)
[2020-03-01] MEDS: NON FORMULARY DRUG (Omega-3 Acid Ethyl Esters [Lovaza] 1 GM Capsule) PO SCH (20:39)
[2020-03-01] MEDS: LATANOPROST 0.005% OPHTH DROPS 2.5 ML BTL BOTH EYES SCH (20:40)
[2020-03-02] MEDS: LEVOTHYROXINE 50 MCG TAB PO SCH (05:50)
[2020-03-02] MEDS: ALBUTEROL HFA INHALER INHALATION PRN ×2 (08:35→12:12)
[2020-03-02] MEDS: SODIUM CHLORIDE 0.9% 1,000 ML IV SCH (08:42)
[2020-03-02] MEDS: ENOXAPARIN 40 MG/0.4 ML SYRINGE SQ SCH (08:44)
[2020-03-02] MEDS: EZETIMIBE 10 MG TAB PO SCH (08:46)
[2020-03-02] MEDS: ASCORBIC ACID 500 MG TAB PO SCH (08:46)
[2020-03-02] MEDS: METOPROLOL TARTRATE 12.5 MG TAB PO SCH (08:46)
[2020-03-02] MEDS: CHOLECALCIFEROL 1,000 UNIT TAB PO SCH (08:46)
[2020-03-02] MEDS: ASPIRIN 81 MG PO SCH (08:46)
[2020-03-02] MEDS: ZINC SULFATE 220 MG CAP PO SCH (08:47)
[2020-03-02] MEDS: dexAMETHasone 2 MG TAB PO SCH (08:47)
[2020-03-02] MEDS: PANTOPRAZOLE 40 MG TABLET PO SCH (08:47)
[2020-03-02] MEDS: NON FORMULARY DRUG (Omega-3 Acid Ethyl Esters [Lovaza] 1 GM Capsule) PO SCH (08:47)
[2020-03-02] MEDS: guaiFENesin 600 MG TABLET.ER PO SCH ×2 (08:47→20:51)
[2020-03-02] MEDS: TIMOLOL 0.25% OPHTH DROPS 5 ML BTL BOTH EYES SCH (10:17)
--- NOTE | 2020-03-02 11:37 | P.PN ---
Subjective Progress Note Date: 03/02/20 Patient is doing well this morning. He denies any shortness of breath at rest. He is having some cough but otherwise feeling comfortable. Objective - Vital Signs Vital signs: Vital Signs Temp 98.4 F 03/02/20 09:45 Pulse 108 H 03/02/20 09:45 Resp 17 03/02/20 09:45 BP 122/78 03/02/20 09:45 Pulse Ox 92 L 03/02/20 09:45 Intake & Output 03/01/20 03/02/20 03/02/20 18:59 06:59 18:59 Intake Total 1800 650 Balance 1800 650 Weight 104.326 kg Intake: IV 650 Sodium Chloride 0.9% 1, 600 000 ml @ 75 mls/hr IV . [id number] [facility] Rx#:[id number] cefTRIAXone 1 gm In 50 Sodium Chloride 0.9% 50 ml @ 100 mls/hr IVPB Q24HR [facility] Rx#:[id number] Intake, IV Titration 1400 Amount Remdesivir (Eua) 100 mg 500 In Sodium Chloride 0.9% 250 ml @ 250 mls/hr IVPB DAILY@2000 [facility] Rx#: [id number] Sodium Chloride 0.9% 1, 900 000 ml @ 75 mls/hr IV . [id number] [facility] Rx#:[id number] Oral 400 Other: Voiding Method Toilet - Exam General: The patient is awake and alert, in no distress Eye: there is normal conjunctiva bilaterally. Neck: The neck is supple, there is no JVD. Cardiovascular: Normal S1-S2, no S3-S4, no murmurs. Respiratory: Lungs clear to auscultation bilaterally Gastrointestinal: Abdomen is soft, nontender Musculoskeletal: There is no pedal edema. Neurological:. Speech is normal. Skin: Skin is warm and dry - Labs CBC & Chem 7: 03/01/20 11:01 03/01/20 11:01 Labs: Abnormal Lab Results - Last 24 Hours (Table) 03/01/20 03/01/20 Range/Units 11: 17:15 D-Dimer 0.60 H (<0.60) mg/L FEU Sodium 136 L (137-145) mmol/L Glucose 132 H (74-99) mg/dL Ferritin 2062.8 H (22.0-322.0) ng/mL Lactate Dehydrogenase 654 H (313-618) U/L C-Reactive Protein 189.8 H (<10.0) mg/L Assessment and Plan Assessment: This is a 59-year-old male with past medical history noted below who presented to the emergency room with progressive fatigue, cough, and shortness of breath. Patient was evaluated in the ER and admitted to the hospital for further management of his medical problems noted below. 1. Covid19 pneumonia, test reported positive at an outside urgent care 2 days prior to his presentation. Repeat PCR done in the ER pending. Patient was seen and evaluated by pulmonology. Started on Remdesivir day 2/5 Decadron 6 mg daily day 05/23. Supplements with zinc, vitamin C, and melatonin. Albuterol inhaler as needed. We will monitor inflammatory markers. Pro-calcitonin was normal. 2. Chronic medical problems: Essential hypertension, hyperlipidemia, hypothyroidism, history of gout, valvular heart disease, stable continue home m edication 3. DVT prophylaxis with subcu Lovenox Today, I reviewed his medication list and lab work results. We will monitor clinical status closely. Repeat inflammatory markers tomorrow. Discontinue IV fluid.
[2020-03-02 12:17] LABS: C Reactive Protein 16.7 mg/dL (0.0-0.8)
--- NOTE | 2020-03-02 15:49 | P.PN ---
Subjective Progress Note Date: 03/02/20 Principal diagnosis: COVID 19 This is a very pleasant 59-year-old gentleman who follows with Dr. Ferguson as his primary care provider. He has a history of Hodgkin's lymphoma status post radiation, valvular heart disease, obstructive sleep apnea not requiring CPAP, hyperlipidemia, gastroesophageal reflux disease, splenectomy. He presented here to the emergency room earlier this morning with complaints of increasing shortness of breath, fatigue, malaise and weakness. He also had flulike symptoms associated with chills and dry cough. 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 He had been tested on 02/25/2020 at an urgent care center was positive for CoVID 19. Influenza screen negative. Chest x-ray does reveal evidence of bilateral pneumonia. We are consulted for the same. He is seen today on the regular medical floor. He is currently awake and alert. He is currently maintaining O2 saturation in the low 90s on 2 L/m per nasal. Afebrile. Hemodynamically stable. White count 8.5. Hemoglobin 14.7. Sodium 136. Potassium 4.0. Creatinine 1.06. She is LDH 654. C-reactive protein 189. Troponin negative times one. Lactic acid 1.4. He's been initiated on ceftriaxone and azithromycin. He's also been initiated on vitamin C, Decadron, zinc. 0.9 normal saline at 75 ML's per hour. On 03/02/2020 patient seen in follow-up on general medical surgical floor. He is awake and alert, she is on 2 L of oxygen pulse ox is 94%, he is afebrile, hemodynamically stable, he was started on Remdesivir, he is on oral Decadron, vitamin C, zinc supplement, and prophylactic dose of Lovenox. Labs have been reviewed, d-dimer is 0.60, LDH is coming down to 185 today, CRP is down to 16.7, pro-calcitonin 0.09. Denies any shortness of breath at rest, some limited cough, nonproductive. No nausea vomiting or diarrhea. Objective - Vital Signs Vital signs: Vital Signs Temp 97.8 F 03/02/20 14:05 Pulse 98 03/02/20 14:05 Resp 17 03/02/20 14:05 BP 113/75 03/02/20 14:05 Pulse Ox 94 L 03/02/20 14:05 Intake & Output 03/01/20 03/02/20 03/02/20 18:59 06:59 18:59 Intake Total 1800 650 Balance 1800 650 Weight 104.326 kg Intake: IV 650 Sodium Chloride 0.9% 1, 600 000 ml @ 75 mls/hr IV . [id number] [facility] Rx#:[id number] cefTRIAXone 1 gm In 50 Sodium Chloride 0.9% 50 ml @ 100 mls/hr IVPB Q24HR [facility] Rx#:[id number] Intake, IV Titration 1400 Amount Remdesivir (Eua) 100 mg 500 In Sodium Chloride 0.9% 250 ml @ 250 mls/hr IVPB DAILY@2000 [facility] Rx#: [id number] Sodium Chloride 0.9% 1, 900 000 ml @ 75 mls/hr IV . [id number] [facility] Rx#:[id number] Oral 400 Other: Voiding Method Toilet - Exam GENERAL EXAM: Alert, very pleasant, 59-year-old white male, on 2 L of oxygen a pulse ox of 90-94% comfortable in no apparent distress. HEAD: Normocephalic/atraumatic. EYES: Normal reaction of pupils, equal size. Conjunctiva pink, sclera white. NOSE: Clear with pink turbinates. THROAT: No erythema or exudates. NECK: No masses, no JVD, no thyroid enlargement, no adenopathy. CHEST: No chest wall deformity. Symmetrical expansion. LUNGS: Equal air entry with no crackles, wheeze, rhonchi or dullness. CVS: Regular rate and rhythm, normal S1 and S2, no gallops, no murmurs, no rubs ABDOMEN: Soft, nontender. No hepatosplenomegaly, normal bowel sounds, no guarding or rigidity. EXTREMITIES: No clubbing, no edema, no cyanosis, 2+ pulses and upper and lower extremities. MUSCULOSKELETAL: Muscle strength and tone normal. SPINE: No scoliosis or deformity SKIN: No rashes CENTRAL NERVOUS SYSTEM: Alert and oriented -3. No focal deficits, tone is normal in all 4 extremities. PSYCHIATRIC: Alert and oriented -3. Appropriate affect. Intact judgment and insight. - Labs CBC & Chem 7: 03/01/20 11:01 03/01/20 11:01 Labs: Abnormal Lab Results - Last 24 Hours (Table) 03/01/20 03/01/20 03/02/20 Range/Units 11:01 17:15 06:49 D-Dimer 0.60 H (<0.60) mg/L FEU Ferritin 2062.8 H (22.0-322.0) ng/mL Lactate Dehydrogenase 285 H (120-246) U/L C-Reactive Protein 16.7 H (0.0-0.8) mg/dL Microbiology - Last 24 Hours (Table) 03/01/20 11:16 Blood Culture - Preliminary Blood No Growth after 24 hours Assessment and Plan Plan: Assessment: 1 Acute CoVID 19 pneumonia, reported positive test on 02/25/2020, PCR pending 2 Elevated inflammatory markers secondary to above 3 Obesity 4 Mild obstructive sleep apnea with an AHI of 13, not currently on CPAP 5 valvular heart disease 6 Hypothyroidism 7 History of gout 8 Hyperlipidemia 9 History of Hodgkin's lymphoma with previous radiation 10 Splenectomy 11 Former smoker Plan: Continue Remdesivir, continue oral Decadron, prophylactic dose Lovenox, continue monitoring oxygenation and febrile pattern, follow-up inflammatory markers, we'll continue to follow I performed a history & physical examination of the patient and discussed their management with my nurse practitioner, Radha Garcia. I reviewed the nurse practitioner's note and agree with the documented findings and plan of care. Lung sounds are positive for diminished breath sounds The findings and the impression was discussed with the patient. I attest to the documentation by the nurse practitioner. Time with Patient: Less than 30
[2020-03-02] MEDS: ATORVASTATIN 40 MG TAB PO SCH (20:50)
[2020-03-02] MEDS: REMDESIVIR (EUA) 100 MG in SODIUM CHLORIDE 0.9% 250 ML IVPB SCH (20:50)
[2020-03-02] MEDS: MELATONIN 5 MG TABLET PO SCH (20:50)
[2020-03-02] MEDS: LOVAZA 1 GM PO SCH (20:51)
[2020-03-02] MEDS: LATANOPROST 0.005% OPHTH DROPS 2.5 ML BTL BOTH EYES SCH (20:58)
[2020-03-03] MEDS: LEVOTHYROXINE 50 MCG TAB PO SCH (05:29)
[2020-03-03 07:12] LABS: Basophils # (A) 0.1 k/uL (0-0.2); Basophils % (A) 1 %; Eosinophils % (A) 0 %; HCT 44.1 % (39.0-53.0); HGB 15.1 gm/dL (13.0-17.5); Lymphocytes # (A) 1.4 k/uL (1.0-4.8); Lymphocytes % (A) 11 %; MCH 30.7 pg (25.0-35.0); MCHC 34.3 g/dL (31.0-37.0); MCV 89.4 fL (80.0-100.0); Monocytes % (A) 8 %; Neutrophils # (A) 10.7 k/uL (1.3-7.7); Neutrophils % (A) 80 %; Platelet Count 293 k/uL (150-450); RBC 4.93 m/uL (4.30-5.90); RDW 14.1 % (11.5-15.5); WBC 13.5 k/uL (3.8-10.6)
[2020-03-03] MEDS: LOVAZA 1 GM PO SCH ×2 (07:42→20:54)
[2020-03-03] MEDS: CHOLECALCIFEROL 1,000 UNIT TAB PO SCH (07:43)
[2020-03-03] MEDS: ASPIRIN 81 MG PO SCH (07:44)
[2020-03-03] MEDS: METOPROLOL TARTRATE 12.5 MG TAB PO SCH (07:44)
[2020-03-03] MEDS: dexAMETHasone 2 MG TAB PO SCH (07:44)
[2020-03-03] MEDS: ASCORBIC ACID 500 MG TAB PO SCH (07:45)
[2020-03-03] MEDS: guaiFENesin 600 MG TABLET.ER PO SCH ×2 (07:45→20:54)
[2020-03-03] MEDS: PANTOPRAZOLE 40 MG TABLET PO SCH (07:45)
[2020-03-03] MEDS: ZINC SULFATE 220 MG CAP PO SCH (07:45)
[2020-03-03] MEDS: ENOXAPARIN 40 MG/0.4 ML SYRINGE SQ SCH (07:46)
[2020-03-03] MEDS: EZETIMIBE 10 MG TAB PO SCH (07:48)
[2020-03-03] MEDS: TIMOLOL 0.25% OPHTH DROPS 5 ML BTL BOTH EYES SCH (07:48)
[2020-03-03 12:18] LABS: African American GFR (CKD) 107.2 (60.0-200.0); Anion Gap 10.4 mmol/L (4.00-12.00); BUN/Creat Ratio 28.89 Ratio (12.00-20.00); C Reactive Protein 7.9 mg/dL (0.0-0.8); Calcium 8.9 mg/dL (8.7-10.3); Carbon Dioxide 29.6 mmol/L (21.6-31.8); Magnesium 2.2 mg/dL (1.5-2.4); Non-African American GFR(CKD) 92.5 (60.0-200.0); Potassium 4.2 mmol/L (3.5-5.5)
[2020-03-03 13:45] VITALS: BMI 31.1
--- NOTE | 2020-03-03 15:48 | P.PN ---
Subjective Progress Note Date: 03/03/20 Patient is doing well this morning. He denies any shortness of breath at rest. He is having some cough but otherwise feeling comfortable. Objective - Vital Signs Vital signs: Vital Signs Temp 97.4 F L 03/03/20 15:09 Pulse 97 03/03/20 15:09 Resp 16 03/03/20 15:09 BP 106/70 03/03/20 15:09 Pulse Ox 93 L 03/03/20 15:09 Intake & Output 03/02/20 03/03/20 03/03/20 18:59 06:59 18:59 Intake Total 650 250 320 Balance 650 250 320 Weight 104.326 kg Intake: IV 650 Sodium Chloride 0.9% 1, 600 000 ml @ 75 mls/hr IV . [id number] [facility] Rx#:[id number] cefTRIAXone 1 gm In 50 Sodium Chloride 0.9% 50 ml @ 100 mls/hr IVPB Q24HR [facility] Rx#:[id number] Intake, IV Titration 250 Amount Remdesivir (Eua) 100 mg 250 In Sodium Chloride 0.9% 250 ml @ 250 mls/hr IVPB DAILY@2000 [facility] Rx#: [id number] Oral 320 Other: Voiding Method Toilet Toilet # Voids 1 2 - Exam General: The patient is awake and alert, in no distress Eye: there is normal conjunctiva bilaterally. Neck: The neck is supple, there is no JVD. Cardiovascular: Normal S1-S2, no S3-S4, no murmurs. Respiratory: Lungs clear to auscultation bilaterally Gastrointestinal: Abdomen is soft, nontender Musculoskeletal: There is no pedal edema. Neurological:. Speech is normal. Skin: Skin is warm and dry - Labs CBC & Chem 7: 03/03/20 06:20 03/03/20 06:20 Labs: Abnormal Lab Results - Last 24 Hours (Table) 03/02/20 03/03/20 03/03/20 Range/Units 06:49 06:20 06:20 WBC 13.5 H (3.8-10.6) k/uL Neutrophils # 10.7 H (1.3-7.7) k/uL BUN/Creatinine Ratio 28.89 H (12.00-20.00) Ratio Glucose 159 H (70-110) mg/dL Ferritin 2980.2 H (22.0-322.0) ng/mL Lactate Dehydrogenase 347 H (120-246) U/L C-Reactive Protein 7.9 H (0.0-0.8) mg/dL Microbiology - Last 24 Hours (Table) 03/01/20 11:16 Blood Culture - Preliminary Blood No Growth after 48 hours Assessment and Plan Assessment: This is a 59-year-old male with past medical history noted below who presented to the emergency room with progressive fatigue, cough, and shortness of breath. Patient was evaluated in the ER and admitted to the hospital for further management of his medical problems noted below. 1. Covid19 pneumonia, test reported positive at an outside urgent care 2 days prior to his presentation. Repeat PCR done in the ER pending. Patient was seen and evaluated by pulmonology. Started on Remdesivir day 06/15 Decadron 6 mg daily day 06/20. Supplements with zinc, vitamin C, and melatonin. Albuterol inhaler as needed. We will monitor inflammatory markers. Pro-calcitonin was normal. 2. Chronic medical problems: Essential hypertension, hyperlipidemia, hypothyroidism, history of gout, valvular heart disease, stable continue home medication 3. DVT prophylaxis with subcu Lovenox Today, I reviewed his medication list and lab work results. We will monitor clinical status closely.
--- NOTE | 2020-03-03 17:34 | P.PN ---
Subjective Progress Note Date: 03/03/20 This is a very pleasant 59-year-old gentleman who follows with Dr. Ferguson as his primary care provider. He has a history of Hodgkin's lymphoma status post radiation, valvular heart disease, obstructive sleep apnea not requiring CPAP, hyperlipidemia, gastroesophageal reflux disease, splenectomy. He presented here to the emergency room earlier this morning with complaints of increasing shortness of breath, fatigue, malaise and weakness. He also had flulike symptoms associated with chills and dry cough. 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 He had been tested on 02/25/2020 at an urgent care center was positive for CoVID 19. Influenza screen negative. Chest x-ray does reveal evidence of bilateral pneumonia. We are consulted for the same. He is seen today on the regular medical floor. He is currently awake and alert. He is currently maintaining O2 saturation in the low 90s on 2 L/m per nasal. Afebrile. Hemodynamically stable. White count 8.5. Hemoglobin 14.7. Sodium 136. Potassium 4.0. Creatinine 1.06. She is LDH 654. C-reactive protein 189. Troponin negative times one. Lactic acid 1.4. He's been initiated on ceftriaxone and azithromycin. He's also been initiated on vitamin C, Decadron, zinc. 0.9 normal saline at 75 ML's per hour. On 03/02/2020 patient seen in follow-up on general medical surgical floor. He is awake and alert, she is on 2 L of oxygen pulse ox is 94%, he is afebrile, hemodynamically stable, he was started on Remdesivir, he is on oral Decadron, vitamin C, zinc supplement, and prophylactic dose of Lovenox. Labs have been reviewed, d-dimer is 0.60, LDH is coming down to 185 today, CRP is down to 16.7, pro-calcitonin 0.09. Denies any shortness of breath at rest, some limited cough, nonproductive. No nausea vomiting or diarrhea. On 03/03/2020, the patient is on 2 L of oxygen by nasal cannula. Unable to wean on vaccination and further as the patient's pulse ox in the order of 90%. Doing well. No new symptoms. No new constitutional symptoms at this point in time. No chest pain. No fever or chills. The white cycles of 15.5. LDH level is at 347, C-reactive protein is down to 7.4. Folic acid level was low at 0.09. The patient is on a combination of Decadron and vitamin C and zinc and he is on p rophylactic dose of Lovenox. The patient is also receiving Remdesivir Objective - Vital Signs Vital signs: Vital Signs Temp 97.4 F L 03/03/20 15:09 Pulse 97 03/03/20 16:00 Resp 16 03/03/20 16:00 BP 106/70 03/03/20 15:09 Pulse Ox 93 L 03/03/20 15:09 Intake & Output 03/02/20 03/03/20 03/03/20 18:59 06:59 18:59 Intake Total 650 250 320 Balance 650 250 320 Weight 104.326 kg Intake: IV 650 Sodium Chloride 0.9% 1, 600 000 ml @ 75 mls/hr IV . [id number] [facility] Rx#:[id number] cefTRIAXone 1 gm In 50 Sodium Chloride 0.9% 50 ml @ 100 mls/hr IVPB Q24HR [facility] Rx#:[id number] Intake, IV Titration 250 Amount Remdesivir (Eua) 100 mg 250 In Sodium Chloride 0.9% 250 ml @ 250 mls/hr IVPB DAILY@2000 [facility] Rx#: [id number] Oral 320 Other: Voiding Method Toilet Toilet # Voids 1 2 - Exam GENERAL EXAM: Alert, very pleasant, 59-year-old white male, on 2 L of oxygen a pulse ox of 90-94% comfortable in no apparent distress. HEAD: Normocephalic/atraumatic. EYES: Normal reaction of pupils, equal size. Conjunctiva pink, sclera white. NOSE: Clear with pink turbinates. THROAT: No erythema or exudates. NECK: No masses, no JVD, no thyroid enlargement, no adenopathy. CHEST: No chest wall deformity. Symmetrical expansion. LUNGS: Equal air entry with no crackles, wheeze, rhonchi or dullness. CVS: Regular rate and rhythm, normal S1 and S2, no gallops, no murmurs, no rubs ABDOMEN: Soft, nontender. No hepatosplenomegaly, normal bowel sounds, no guarding or rigidity. EXTREMITIES: No clubbing, no edema, no cyanosis, 2+ pulses and upper and lower extremities. MUSCULOSKELETAL: Muscle strength and tone normal. SPINE: No scoliosis or deformity SKIN: No rashes CENTRAL NERVOUS SYSTEM: Alert and oriented -3. No focal deficits, tone is normal in all 4 extremities. PSYCHIATRIC: Alert and oriented -3. Appropriate affect. Intact judgment and insight. - Labs CBC & Chem 7: 03/03/20 06:20 03/03/20 06:20 Labs: Abnormal Lab Results - Last 24 Hours (Table) 03/02/20 03/03/20 03/03/20 Range/Units 06:49 06:20 06:20 WBC 13.5 H (3.8-10.6) k/uL Neutrophils # 10.7 H (1.3-7.7) k/uL BUN/Creatinine Ratio 28.89 H (12.00-20.00) Ratio Glucose 159 H (70-110) mg/dL Ferritin 2980.2 H (22.0-322.0) ng/mL Lactate Dehydrogenase 347 H (120-246) U/L C-Reactive Protein 7.9 H (0.0-0.8) mg/dL Microbiology - Last 24 Hours (Table) 03/01/20 11:16 Blood Culture - Preliminary Blood No Growth after 48 hours Assessment and Plan Plan: 1 Acute CoVID 19 pneumonia, reported positive test on 02/25/2020 2 Elevated inflammatory markers secondary to above 3 acute hypoxic respiratory failure secondary to above currently on 2 L of oxygen by nasal cannula 4 Mild obstructive sleep apnea with an AHI of 13, not currently on CPAP 5 valvular heart disease 6 Hypothyroidism 7 History of gout 8 Hyperlipidemia 9 History of Hodgkin's lymphoma with previous radiation 10 Splenectomy Plan Clinically stable Continue same treatment Complete a course of Remdesivir, , a five-day course Lovenox for DVT prophylaxis oral Decadron We'll follow
[2020-03-03] MEDS: ATORVASTATIN 40 MG TAB PO SCH (20:53)
[2020-03-03] MEDS: REMDESIVIR (EUA) 100 MG in SODIUM CHLORIDE 0.9% 250 ML IVPB SCH (20:53)
[2020-03-03] MEDS: LATANOPROST 0.005% OPHTH DROPS 2.5 ML BTL BOTH EYES SCH (20:54)
[2020-03-03] MEDS: MELATONIN 5 MG TABLET PO SCH (20:54)
[2020-03-04] MEDS: LEVOTHYROXINE 50 MCG TAB PO SCH (06:02)
[2020-03-04 06:29] LABS: Basophils # (A) 0.1 k/uL (0-0.2); Basophils % (A) 1 %; Eosinophils % (A) 0 %; HCT 41.6 % (39.0-53.0); Lymphocytes % (A) 7 %; MCH 29.7 pg (25.0-35.0); MCHC 33.6 g/dL (31.0-37.0); MCV 88.4 fL (80.0-100.0); Monocytes # (A) 1.1 k/uL (0-1.0); Monocytes % (A) 8 %; Neutrophils % (A) 82 %; Platelet Count 322 k/uL (150-450); RBC 4.71 m/uL (4.30-5.90); RDW 13.9 % (11.5-15.5); WBC 13.4 k/uL (3.8-10.6)
[2020-03-04] MEDS: dexAMETHasone 2 MG TAB PO SCH (08:19)
[2020-03-04] MEDS: ASPIRIN 81 MG PO SCH (08:19)
[2020-03-04] MEDS: guaiFENesin 600 MG TABLET.ER PO SCH ×2 (08:19→20:08)
[2020-03-04] MEDS: EZETIMIBE 10 MG TAB PO SCH (08:19)
[2020-03-04] MEDS: METOPROLOL TARTRATE 12.5 MG TAB PO SCH (08:19)
[2020-03-04] MEDS: LOVAZA 1 GM PO SCH ×2 (08:20→20:08)
[2020-03-04] MEDS: ASCORBIC ACID 500 MG TAB PO SCH (08:20)
[2020-03-04] MEDS: ZINC SULFATE 220 MG CAP PO SCH (08:20)
[2020-03-04] MEDS: TIMOLOL 0.25% OPHTH DROPS 5 ML BTL BOTH EYES SCH (08:20)
[2020-03-04] MEDS: PANTOPRAZOLE 40 MG TABLET PO SCH (08:20)
[2020-03-04] MEDS: CHOLECALCIFEROL 1,000 UNIT TAB PO SCH (08:20)
[2020-03-04] MEDS: ENOXAPARIN 40 MG/0.4 ML SYRINGE SQ SCH (08:20)
[2020-03-04 09:29] LABS: African American GFR (CKD) 112.5 (60.0-200.0); BUN/Creat Ratio 33.75 Ratio (12.00-20.00); Calcium 8.5 mg/dL (8.7-10.3); Non-African American GFR(CKD) 97.1 (60.0-200.0); Potassium 4.1 mmol/L (3.5-5.5)
--- NOTE | 2020-03-04 15:53 | P.PN ---
Subjective Progress Note Date: 03/04/20 Patient is doing well this morning. He denies any shortness of breath or cough Objective - Vital Signs Vital signs: Vital Signs Temp 98.6 F 03/04/20 14:59 Pulse 94 03/04/20 14:59 Resp 16 03/04/20 14:59 BP 102/68 03/04/20 14:59 Pulse Ox 93 L 03/04/20 14:59 Intake & Output 03/03/20 03/04/20 03/04/20 18:59 06:59 18:59 Intake Total 320 550 500 Balance 320 550 500 Weight 104.326 kg Intake: Intake, IV Titration 250 Amount Remdesivir (Eua) 100 mg 250 In Sodium Chloride 0.9% 250 ml @ 250 mls/hr IVPB DAILY@1999 [facility] Rx#: [id number] Oral 320 300 500 Other: Voiding Method Toilet Toilet Toilet # Voids 2 1 2 - Exam General: The patient is awake and alert, in no distress Eye: there is normal conjunctiva bilaterally. Neck: The neck is supple, there is no JVD. Cardiovascular: Normal S1-S2, no S3-S4, no murmurs. Respiratory: Lungs clear to auscultation bilaterally Gastrointestinal: Abdomen is soft, nontender Musculoskeletal: There is no pedal edema. Neurological:. Speech is normal. Skin: Skin is warm and dry - Labs CBC & Chem 7: 03/04/20 06:18 03/04/20 06:18 Labs: Abnormal Lab Results - Last 24 Hours (Table) 03/04/20 03/04/20 Range/Units 06:18 06:18 WBC 13.4 H (3.8-10.6) k/uL Neutrophils # 11.0 H (1.3-7.7) k/uL Monocytes # 1.1 H (0-1.0) k/uL BUN/Creatinine Ratio 33.75 H (12.00-20.00) Ratio Glucose 155 H (70-110) mg/dL Calcium 8.5 L (8.7-10.3) mg/dL Microbiology - Last 24 Hours (Table) 03/01/20 11:16 Blood Culture - Preliminary Blood No Growth after 72 hours Assessment and Plan Assessment: This is a 59-year-old male with past medical history noted below who presented to the emergency room with progressive fatigue, cough, and shortness of breath. Patient was evaluated in the ER and admitted to the hospital for further management of his medical problems noted below. 1. Covid19 pneumonia, test reported positive at an outside urgent care 2 days prior to his presentation. Repeat PCR done in the ER pending. Patient was seen and evaluated by pulmonology. Started on Remdesivir day 4/ Decadron 6 mg daily day 07/21. Supplements with zinc, vitamin C, and melatonin. Albuterol inhaler as needed. We will monitor inflammatory markers. Pro-calcitonin was normal. 2. Chronic medical problems: Essential hypertension, hyperlipidemia, h ypothyroidism, history of gout, valvular heart disease, stable continue home medication 3. DVT prophylaxis with subcu Lovenox Today, I reviewed his medication list and lab work results. We will monitor clinical status closely.
--- NOTE | 2020-03-04 16:13 | P.PN ---
Subjective Progress Note Date: 03/04/20 Principal diagnosis: CoVID 19 pneumonia This is a very pleasant 59-year-old gentleman who follows with Dr. Ferguson as his primary care provider. He has a history of Hodgkin's lymphoma status post radiation, valvular heart disease, obstructive sleep apnea not requiring CPAP, hyperlipidemia, gastroesophageal reflux disease, splenectomy. He presented here to the emergency room earlier this morning with complaints of increasing shortness of breath, fatigue, malaise and weakness. He also had flulike symptoms associated with chills and dry cough. 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 He had been tested on 02/25/2020 at an urgent care center was positive for CoVID 19. Influenza screen negative. Chest x-ray does reveal evidence of bilateral pneumonia. We are consulted for the same. He is seen today on the regular medical floor. He is currently awake and alert. He is currently maintaining O2 saturation in the low 90s on 2 L/m per nasal. Afebrile. Hemodynamically stable. White count 8.5. Hemoglobin 14.7. Sodium 136. Potassium 4.0. Creatinine 1.06. She is LDH 654. C-reactive protein 189. Troponin negative times one. Lactic acid 1.4. He's been initiated on ceftriaxone and azithromycin. He's also been initiated on vitamin C, Decadron, zinc. 0.9 normal saline at 75 ML's per hour. On 03/02/2020 patient seen in follow-up on general medical surgical floor. He is awake and alert, she is on 2 L of oxygen pulse ox is 94%, he is afebrile, hemodynamically stable, he was started on Remdesivir, he is on oral Decadron, vitamin C, zinc supplement, and prophylactic dose of Lovenox. Labs have been reviewed, d-dimer is 0.60, LDH is coming down to 185 today, CRP is down to 16.7, pro-calcitonin 0.09. Denies any shortness of breath at rest, some limited cough, nonproductive. No nausea vomiting or diarrhea. On 03/03/2020, the patient is on 2 L of oxygen by nasal cannula. Unable to wean on vaccination and further as the patient's pulse ox in the order of 90%. Doing well. No new symptoms. No new constitutional symptoms at this point in time. No chest pain. No fever or chills. The white cycles of 15.5. LDH level is at 347, C-reactive protein is down to 7.4. Folic acid level was low at 0.09. The patient is on a combination of Decadron and vitamin C and zinc and he is on prophylactic dose of Lovenox. The patient is also receiving Remdesivir The patient is seen today 03/04/2020 in follow-up on the regular medical floor. He is currently sitting up in a chair at the bedside. Awake and alert in no acute distress. Still somewhat dyspneic on minimal exertion. He is maintaining O2 saturations in the low 90s on room air. He's afebrile. White count 13.4. Hemoglobin 14.0. Lymphocytes 1.0. Sodium 141. Potassium 4.1. Creatinine 0.8. This is day #4 of Remdesivir. Remains on dexamethasone and Lovenox. Objective - Vital Signs Vital signs: Vital Signs Temp 98.6 F 03/04/20 14:59 Pulse 94 03/04/20 14:59 Resp 16 03/04/20 14:59 BP 102/68 03/04/20 14:59 Pulse Ox 93 L 03/04/20 14:59 Intake & Output 03/03/20 03/04/20 03/04/20 18:59 06:59 18:59 Intake Total 320 550 500 Balance 320 550 500 Weight 104.326 kg Intake: Intake, IV Titration 250 Amount Remdesivir (Eua) 100 mg 250 In Sodium Chloride 0.9% 250 ml @ 250 mls/hr IVPB DAILY@1999 [facility] Rx#: [id number] Oral 320 300 500 Other: Voiding Method Toilet Toilet Toilet # Voids 2 1 2 - Exam GENERAL EXAM: Alert, active, pleasant 59-year-old gentleman, on room air, comfortable in no apparent distress. HEAD: Normocephalic. EYES: Normal reaction of pupils, equal size. NOSE: Clear with pink turbinates. THROAT: No erythema or exudates. NECK: No masses, no JVD. CHEST: No chest wall deformity. LUNGS: Equal air entry with bilateral scattered rhonchi CVS: S1 and S2 normal with no audible murmur, regular rhythm. ABDOMEN: No hepatosplenomegaly, normal bowel sounds, no guarding or rigidity. SPINE: No scoliosis or deformity SKIN: No rashes CENTRAL NERVOUS SYSTEM: No focal deficits, tone is normal in all 4 extremities. EXTREMITIES: There is no peripheral edema. No clubbing, no cyanosis. Peripheral pulses are intact. - Labs CBC & Chem 7: 03/04/20 06:18 03/04/20 06:18 Labs: Abnormal Lab Results - Last 24 Hours (Table) 03/04/20 03/04/20 Range/Units 06:18 06:18 WBC 13.4 H (3.8-10.6) k/uL Neutrophils # 11.0 H (1.3-7.7) k/uL Monocytes # 1.1 H (0-1.0) k/uL BUN/Creatinine Ratio 33.75 H (12.00-20.00) Ratio Glucose 155 H (70-110) mg/dL Calcium 8.5 L (8.7-10.3) mg/dL Microbiology - Last 24 Hours (Table) 03/01/20 11:16 Blood Culture - Preliminary Blood No Growth after 72 hours Assessment and Plan Assessment: 1 Acute CoVID 19 pneumonia, reported positive test on 02/25/2020, PCR pending 2 Elevated inflammatory markers secondary to above 3 Obesity 4 Mild obstructive sleep apnea with an AHI of 13, not currently on CPAP 5 valvular heart disease 6 Hypothyroidism 7 History of gout 8 Hyperlipidemia 9 History of Hodgkin's lymphoma with previous radiation 10 Splenectomy 11 Former smoker Plan: The patient was seen and evaluated by Dr. Sampson Continue Remdesivir Continue Lovenox, dexamethasone, melatonin, PPI, zinc, vitamin C, vitamin D Repeat labs and chest x-ray in a.m. We will continue to follow and make further recommendations based on his clinical status I, the cosigning physician, performed a history & physical examination of the patient. Lungs sounds bilateral scattered rhonchi. Maintaining good O2 saturations in the 90s on room air. I discussed the assessment and plan of care with my nurse practitioner, Sofiya Patel. I attest to the above note as dictated by her.
[2020-03-04] MEDS: ATORVASTATIN 40 MG TAB PO SCH (20:08)
[2020-03-04] MEDS: MELATONIN 5 MG TABLET PO SCH (20:08)
[2020-03-04] MEDS: LATANOPROST 0.005% OPHTH DROPS 2.5 ML BTL BOTH EYES SCH (20:09)
[2020-03-04] MEDS: REMDESIVIR (EUA) 100 MG in SODIUM CHLORIDE 0.9% 250 ML IVPB SCH (20:59)
[2020-03-05] MEDS: LEVOTHYROXINE 50 MCG TAB PO SCH (05:18)
[2020-03-05] MEDS: ZINC SULFATE 220 MG CAP PO SCH (07:25)
[2020-03-05] MEDS: LOVAZA 1 GM PO SCH (07:25)
[2020-03-05] MEDS: ASPIRIN 81 MG PO SCH (07:25)
[2020-03-05] MEDS: dexAMETHasone 2 MG TAB PO SCH (07:25)
[2020-03-05] MEDS: METOPROLOL TARTRATE 12.5 MG TAB PO SCH (07:26)
[2020-03-05] MEDS: guaiFENesin 600 MG TABLET.ER PO SCH (07:26)
[2020-03-05] MEDS: ENOXAPARIN 40 MG/0.4 ML SYRINGE SQ SCH (07:26)
[2020-03-05] MEDS: CHOLECALCIFEROL 1,000 UNIT TAB PO SCH (07:26)
[2020-03-05] MEDS: EZETIMIBE 10 MG TAB PO SCH (07:26)
[2020-03-05] MEDS: PANTOPRAZOLE 40 MG TABLET PO SCH (07:26)
[2020-03-05] MEDS: TIMOLOL 0.25% OPHTH DROPS 5 ML BTL BOTH EYES SCH (07:30)
[2020-03-05] MEDS: ASCORBIC ACID 500 MG TAB PO SCH (07:35)
[2020-03-05 07:55] LABS: Basophils # (A) 0.1 k/uL (0-0.2); Basophils % (A) 1 %; Eosinophils % (A) 0 %; HCT 45.7 % (39.0-53.0); HGB 15.7 gm/dL (13.0-17.5); Lymphocytes # (A) 1.1 k/uL (1.0-4.8); Lymphocytes % (A) 10 %; MCH 30.8 pg (25.0-35.0); MCHC 34.3 g/dL (31.0-37.0); MCV 89.8 fL (80.0-100.0); Mean Platelet Volume 8.8; Monocytes % (A) 10 %; Neutrophils # (A) 8.3 k/uL (1.3-7.7); Neutrophils % (A) 78 %; Platelet Count 363 k/uL (150-450); RBC 5.09 m/uL (4.30-5.90); RDW 14.2 % (11.5-15.5); WBC 10.7 k/uL (3.8-10.6)
--- NOTE | 2020-03-05 08:03 | XR ---
EXAMINATION TYPE: XR chest 1V portable DATE OF EXAM: 03/05/2020 COMPARISON: 03/01/2020 INDICATION: Covid pneumonia, short of breath, cough TECHNIQUE: Single frontal view of the chest is obtained. FINDINGS: The heart size is normal. The pulmonary vasculature is normal. Patchy infiltrates are present bilaterally. There may be some slight improvement over the interval. IMPRESSION: 1. Slight improvement of patchy bilateral lung infiltrates which can be compatible with atypical pneu monia.
[2020-03-05] MEDS: ALBUTEROL HFA INHALER INHALATION PRN ×2 (08:18→11:42)
[2020-03-05 10:44] VITALS: TEMP 97.5
[2020-03-05 12:20] LABS: African American GFR (CKD) 107.2 (60.0-200.0); BUN/Creat Ratio 26.67 Ratio (12.00-20.00); C Reactive Protein 2.6 mg/dL (0.0-0.8); Calcium 8.9 mg/dL (8.7-10.3); Non-African American GFR(CKD) 92.5 (60.0-200.0); Potassium 4.8 mmol/L (3.5-5.5)
--- NOTE | 2020-03-05 12:56 | P.DS ---
Providers Date of admission: 03/01/20 13:44 Expected date of discharge: 03/05/20 Attending physician: Jabari Dill Consults: 03/01/20 13:19 Consult Physician Stat Consulting Provider: Juice Sampson Consult Reason/Comments: covid pneumonia Do you want consulting provider notified?: Yes Primary care physician: Serg Block MD Hospital Course: This is a 59-year-old male with past medical history noted below who presented to the emergency room with progressive fatigue, cough, and shortness of breath. Patient was evaluated in the ER and admitted to the hospital for further management of his medical problems noted below. 1. Covid19 pneumonia, test reported positive at an outside urgent care 2 days prior to his presentation. Patient was seen and evaluated by pulmonology. Started on Remdesivir day 08/15 Decadron 6 mg daily day 08/20. Supplements with zinc, vitamin C, and melatonin. Albuterol inhaler as needed. Pro-calcitonin was normal. 2. Chronic medical problems: Essential hypertension, hyperlipidemia, hypothyroidism, history of gout, valvular heart disease, stable continue home medication Patient overall condition remained stable. On the day of discharge he had an O2 sat of 93% on room air at rest and with ambulation. He would be discharged home in a stable condition. He will continue with supplements as above and to finish 10 days course of Decadron. He was advised to self quarantine for 14 days. Patient will be discharged home in a stable condition. For further details about this hospitalization please refer to the electronic chart. Time spent on discharge > 30 minutes including counseling and coordination of care Patient Condition at Discharge: Stable Plan - Discharge Summary Discharge Rx Participant: No New Discharge Prescriptions: New Dexamethasone [Decadron] 6 mg PO DAILY #5 tablet Melatonin 5 mg PO HS #14 tablet guaiFENesin [Mucinex] 600 mg PO Q12HR PRN #14 tablet.er PRN Reason: Cough Zinc Sulfate [Orazinc] 220 mg PO DAILY #14 cap Albuterol Inhaler [Ventolin Hfa Inhaler] 2 puff INHALATION RT-QID PRN #1 inhaler PRN Reason: Shortness Of Breath Or Wheezing Ascorbic Acid [Vitamin C] 1,000 mg PO DAILY #28 tab Cholecalciferol [Vitamin D3 (25 Mcg = 1000 Iu)] 1,000 unit PO DAILY #14 tab Continue Levothyroxine Sodium [Synthroid] 50 mcg PO DAILY Atorvastatin [Lipitor] 40 mg PO HS Fexofenadine HCl 180 mg PO DAILY PRN PRN Reason: Allergy Symptoms Metoprolol Tartrate [Lopressor] 12.5 mg PO DAILY lisinopriL [Zestril] 2.5 mg PO DAILY Ezetimibe [Zetia] 10 mg PO DAILY Omeprazole 20 mg PO DAILY Colchicine 0.6 mg PO DAILY PRN PRN Reason: Gout Aspirin [Adult Low Dose Aspirin EC] 81 mg PO DAILY Clobetasol Propionate [Temovate 0.05% Cream] 1 applic TOPICAL DAILY PRN PRN Reason: Rash Timolol 0.25% Ophth Soln [Timoptic 0.25% Ophth Soln] 1 drop BOTH EYES DAILY Latanoprost [Xalatan 0.005%] 1 drop BOTH EYES HS Ashley-3 Acid Ethyl Esters [Lovaza] 1 gm PO BID Discharge Medication List Atorvastatin [Lipitor] 40 mg PO HS 05/04/19 [History] Ezetimibe [Zetia] 10 mg PO DAILY 05/04/19 [History] Fexofenadine HCl 180 mg PO DAILY PRN 05/04/19 [History] Levothyroxine Sodium [Synthroid] 50 mcg PO DAILY 05/04/19 [History] Metoprolol Tartrate [Lopressor] 12.5 mg PO DAILY 05/04/19 [History] Omeprazole 20 mg PO DAILY 05/04/19 [History] lisinopriL [Zestril] 2.5 mg PO DAILY 05/04/19 [History] Colchicine 0.6 mg PO DAILY PRN 06/23/19 [History] Aspirin [Adult Low Dose Aspirin EC] 81 mg PO DAILY 01/16/20 [History] Clobetasol Propionate [Temovate 0.05% Cream] 1 applic TOPICAL DAILY PRN 01/16/20 [History] Latanoprost [Xalatan 0.005%] 1 drop BOTH EYES HS 03/01/20 [History] Ashley-3 Acid Ethyl Esters [Lovaza] 1 gm PO BID 03/01/20 [History] Timolol 0.25% Ophth Soln [Timoptic 0.25% Ophth Soln] 1 drop BOTH EYES DAILY 03/01/20 [History] Albuterol Inhaler [Ventolin Hfa Inhaler] 2 puff INHALATION RT-QID PRN #1 inhaler 03/05/20 [Rx] Ascorbic Acid [Vitamin C] 1,000 mg PO DAILY #28 tab 03/05/20 [Rx] Cholecalciferol [Vitamin D3 (25 Mcg = 1000 Iu)] 1,000 unit PO DAILY #14 tab 03/05/20 [Rx] Dexamethasone [Decadron] 6 mg PO DAILY #5 tablet 03/05/20 [Rx] Melatonin 5 mg PO HS #14 tablet 03/05/20 [Rx] Zinc Sulfate [Orazinc] 220 mg PO DAILY #14 cap 03/05/20 [Rx] guaiFENesin [Mucinex] 600 mg PO Q12HR PRN #14 tablet.er 03/05/20 [Rx] Follow up Appointment(s)/Referral(s): Serg Block MD [Primary Care Provider] - 1-2 days Activity/Diet/Wound Care/Special Instructions: HOME MEDS IN MED ROOM!!!!!!!!!!!!!!!!!! Discharge Disposition: HOME SELF-CARE
[2020-03-05] MEDS: REMDESIVIR (EUA) 100 MG in SODIUM CHLORIDE 0.9% 250 ML IVPB SCH (14:11)
[2020-03-05 14:16] VITALS: BP 105/71; PULSE 97
[2020-03-05 15:09] VITALS: RESP 18
--- NOTE | 2020-03-05 15:12 | P.PN ---
Subjective Progress Note Date: 03/05/20 Principal diagnosis: COVID 19 This is a very pleasant 59-year-old gentleman who follows with Dr. Ferguson as his primary care provider. He has a history of Hodgkin's lymphoma status post radiation, valvular heart disease, obstructive sleep apnea not requiring CPAP, hyperlipidemia, gastroesophageal reflux disease, splenectomy. He presented here to the emergency room earlier this morning with complaints of increasing shortness of breath, fatigue, malaise and weakness. He also had flulike symptoms associated with chills and dry cough. 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 He had been tested on 02/25/2020 at an urgent care center was positive for CoVID 19. Influenza screen negative. Chest x-ray does reveal evidence of bilateral pneumonia. We are consulted for the same. He is seen today on the regular medical floor. He is currently awake and alert. He is currently maintaining O2 saturation in the low 90s on 2 L/m per nasal. Afebrile. Hemodynamically stable. White count 8.5. Hemoglobin 14.7. Sodium 136. Potassium 4.0. Creatinine 1.06. She is LDH 654. C-reactive protein 189. Troponin negative times one. Lactic acid 1.4. He's been initiated on ceftriaxone and azithromycin. He's also been initiated on vitamin C, Decadron, zinc. 0.9 normal saline at 75 ML's per hour. On 03/02/2020 patient seen in follow-up on general medical surgical floor. He is awake and alert, she is on 2 L of oxygen pulse ox is 94%, he is afebrile, hemodynamically stable, he was started on Remdesivir, he is on oral Decadron, vitamin C, zinc supplement, and prophylactic dose of Lovenox. Labs have been reviewed, d-dimer is 0.60, LDH is coming down to 185 today, CRP is down to 16.7, pro-calcitonin 0.09. Denies any shortness of breath at rest, some limited cough, nonproductive. No nausea vomiting or diarrhea. On 03/05/2020 patient seen in follow-up on a general medical surgical floor, he is calm and comfortable, has been ambulating in the room, to the bathroom, no acute distress, he is feeling much better, his room air pulse ox is 91%, he is supposed to get his last dose of Remdesivir today, he continues on oral Decadron, he denies any chest discomfort or palpitations. Today's labs have been reviewed, showing overall improved trend in his inflammatory markers. D- dimer is down to 0.51, his been afebrile. Objective - Vital Signs Vital signs: Vital Signs Temp 97.5 F L 03/05/20 14:00 Pulse 97 03/05/20 14:00 Resp 20 03/05/20 14:00 BP 105/71 03/05/20 14:00 Pulse Ox 91 L 03/05/20 14:00 Intake & Output 03/04/20 03/05/20 03/05/20 18:59 06:59 18:59 Intake Total 800 550 250 Balance 800 550 250 Intake: Intake, IV Titration 250 Amount Remdesivir (Eua) 100 mg 250 In Sodium Chloride 0.9% 250 ml @ 250 mls/hr IVPB DAILY@1999 [facility] Rx#: [id number] Oral 800 300 250 Other: Voiding Method Toilet Toilet Toilet # Voids 2 2 1 - Exam GENERAL EXAM: Alert, very pleasant, 59-year-old white male, on room air with pulse ox of 91% comfortable in no apparent distress. HEAD: Normocephalic/atraumatic. EYES: Normal reaction of pupils, equal size. Conjunctiva pink, sclera white. NOSE: Clear with pink turbinates. THROAT: No erythema or exudates. NECK: No masses, no JVD, no thyroid enlargement, no adenopathy. CHEST: No chest wall deformity. Symmetrical expansion. LUNGS: Equal air entry with no crackles, wheeze, rhonchi or dullness. CVS: Regular rate and rhythm, normal S1 and S2, no gallops, no murmurs, no rubs ABDOMEN: Soft, nontender. No hepatosplenomegaly, normal bowel sounds, no guarding or rigidity. EXTREMITIES: No clubbing, no edema, no cyanosis, 2+ pulses and upper and lower extremities. MUSCULOSKELETAL: Muscle strength and tone normal. SPINE: No scoliosis or deformity SKIN: No rashes CENTRAL NERVOUS SYSTEM: Alert and oriented -3. No focal deficits, tone is normal in all 4 extremities. PSYCHIATRIC: Alert and oriented -3. Appropriate affect. Intact judgment and insight. - Labs CBC & Chem 7: 03/05/20 07:25 03/05/20 07:25 Labs: Abnormal Lab Results - Last 24 Hours (Table) 03/05/20 03/05/20 Range/Units 07:25 07:25 WBC 10.7 H (3.8-10.6) k/uL Neutrophils # 8.3 H (1.3-7.7) k/uL BUN/Creatinine Ratio 26.67 H (12.00-20.00) Ratio Glucose 152 H (70-110) mg/dL Lactate Dehydrogenase 312 H (120-246) U/L C-Reactive Protein 2.6 H (0.0-0.8) mg/dL Microbiology - Last 24 Hours (Table) 03/01/20 11:16 Blood Culture - Preliminary Blood No Growth after 96 hours Assessment and Plan Plan: Assessment: 1 Acute CoVID 19 pneumonia, reported positive test on 02/25/2020, started on Remdesivir on 03/02/2020 2 Elevated inflammatory markers secondary to above, improved 3 Obesity 4 Mild obstructive sleep apnea with an AHI of 13, not currently on CPAP 5 valvular heart disease 6 Hypothyroidism 7 History of gout 8 Hyperlipidemia 9 History of Hodgkin's lymphoma with previous radiation 10 Splenectomy 11 Former smoker Plan: Patient is improving, no fever or chills, he is finishing his Remdesivir course today, he remains on oral Decadron, denies any worsening in his breathing, he is tolerating ambulation, his been afebrile, no acute events overnight, the stable O2 saturations on room air, he is clear for discharge home from pulmonary perspective I performed a history & physical examination of the patient and discussed their management with my nurse practitioner, Radha Garcia. I reviewed the nurse practitioner's note and agree with the documented findings and plan of care. Lung sounds are positive for diminished breath sounds The findings and the impression was discussed with the patient. I attest to the documentation by the nurse practitioner. Time with Patient: Less than 30
== END 2020-03-05 15:43 | disposition home or self-care (01) | DRG 177 ==
LOC: EC 10:05 → 4SSUR 13:44
PROVIDERS: ADMIT Internal Medicine; ATTEND Internal Medicine
DX: U07.1 COVID-19 (principal); J12.89 Other viral pneumonia; E78.5 Hyperlipidemia, unspecified; G47.33 Obstructive sleep apnea (adult) (pediatric); E03.9 Hypothyroidism, unspecified; E66.9 Obesity, unspecified; I10 Essential (primary) hypertension; K21.9 Gastro-esophageal reflux disease without esophagitis; M10.9 Gout, unspecified; Z79.82 Long term (current) use of aspirin; Z79.890 Hormone replacement therapy; Z79.899 Other long term (current) drug therapy; Z92.3 Personal history of irradiation; Z90.81 Acquired absence of spleen; Z87.891 Personal history of nicotine dependence; Z85.72 Personal history of non-Hodgkin lymphomas; Z85.71 Personal history of Hodgkin lymphoma; Z82.49 Family history of ischemic heart disease and other diseases of the circulatory system; Z90.89 Acquired absence of other organs; Z98.890 Other specified postprocedural states; Z80.0 Family history of malignant neoplasm of digestive organs; Z68.31 Body mass index [BMI] 31.0-31.9, adult
CPT/HCPCS: 36415; 71045; 71046; 80048; 80053; 82728; 83605; 83615; 83735; 84145; 84484; 85025; 85379; 85610; 85730; 86140; 87040; 93005; 94640; 99285

== ENCOUNTER 2022-09-09 22:21 | Emergency (ER) | payer BC ==
[2022-09-09 22:33] VITALS: TEMP 97.9
--- NOTE | 2022-09-09 22:42 | ED ---
ENT HPI - General Source: patient, family, RN notes reviewed Mode of arrival: wheelchair Limitations: no limitations - History of Present Illness MD complaint: epistaxis <Agustina Gipson - Last Filed: 09/09/22 22:41> <Angel Allred - Last Filed: 09/10/22 04:56> - General Chief complaint: ENT Stated complaint: NOSE BLEED Time Seen by Provider: 09/09/22 22:41 - History of Present Illness Initial comments: This is a 62-year-old male who presents to the emergency department for a nosebleed. Patient denies any injury and states that this started approximately 2 hours prior to arrival. He is on Coumadin and states that his INR today was 4.5. He is also starting to complain of some dizziness/lightheadedness. Denies any chest pain or shortness of breath. (Agustina Gipson) This is a 62-year-old male with a past medical history including recent open- heart surgery on Coumadin presents emergency department for a nosebleed. The patient stated that he has had intermittentover the last several days but stated that it was worse today. The patient stated that the bleeding continued for approximately 2 hours we came to the emergency department for evaluation today. The patient on my reevaluation had been already waiting in the emergency depart ment waiting room for several hours and his nosebleed had stopped. The patient denied any further acute pain or complaints at this time. (Angel Allred) - Related Data Home Medications Medication Instructions Recorded Confirmed Atorvastatin [Lipitor] 40 mg PO HS 05/04/19 06/17/22 Ezetimibe [Zetia] 10 mg PO DAILY 05/04/19 06/17/22 Fexofenadine HCl 180 mg PO DAILY PRN 05/04/19 06/17/22 Levothyroxine Sodium [Synthroid] 50 mcg PO DAILY 05/04/19 06/17/22 Metoprolol Tartrate [Lopressor] 12.5 mg PO DAILY 05/04/19 06/17/22 Omeprazole 20 mg PO DAILY 05/04/19 06/17/22 lisinopriL [Zestril] 2.5 mg PO DAILY 05/04/19 06/17/22 Colchicine 0.6 mg PO DAILY PRN 06/23/19 06/17/22 Aspirin [Adult Low Dose Aspirin EC] 81 mg PO DAILY 01/16/20 06/17/22 Clobetasol Propionate [Temovate 1 applic TOPICAL DAILY PRN 01/16/20 06/17/22 0.05% Cream] Latanoprost [Xalatan 0.005%] 1 drop BOTH EYES HS 03/01/20 06/17/22 [place]-3 Acid Ethyl Esters [Lovaza] 1 gm PO BID 03/01/20 06/17/22 Timolol 0.25% Ophth Soln [Timoptic 1 drop BOTH EYES DAILY 03/01/20 06/17/22 0.25% Ophth Soln] Empagliflozin [Jardiance] 25 mg PO DAILY 06/11/22 06/17/22 Previous Rx's Medication Instructions Recorded Ascorbic Acid [Vitamin C] 1,000 mg PO DAILY #28 tab 03/05/20 Cholecalciferol [Vitamin D3 (25 1,000 unit PO DAILY #14 tab 03/05/20 Mcg = 1000 Iu)] Zinc Sulfate [Orazinc] 220 mg PO DAILY #14 cap 03/05/20 Allergies Allergy/AdvReac Type Severity Reaction Status Date / Time No Known Allergies Allergy Verified 09/09/22 22:29 Review of Systems ROS Other: All systems not noted in ROS Statement are negative. <Agustina Gipson - Last Filed: 09/09/22 22:41> ROS Other: All systems not noted in ROS Statement are negative. <Angel Allred - Last Filed: 09/10/22 04:56> ROS Statement: Those systems with pertinent positive or pertinent negative responses have been documented in the HPI. Past Medical History Past Medical History: Cancer, GERD/Reflux, Hyperlipidemia, Hypertension, Osteoarthritis (OA), Skin Disorder, Sleep Apnea/CPAP/BIPAP, Thyroid Disorder Additional Past Medical History / Comment(s): dx Hodgkins Lymphoma at age 24-tx radiation therapy. "chest discomfort/tightness", one heart valve "does not close all the way", little light headed and SOB with exertion at times. no cpap used, occ. gout, eczema,. see chiropractor for back and neck. recent URI infection treated with steroids History of Any Multi-Drug Resistant Organisms: None Reported Past Surgical History: Adenoidectomy, Pacemaker, Tonsillectomy Additional Past Surgical History / Comment(s): Biopsy of abdominal organs and mass rt side of neck removed when dx. with Lymphoma, partial spleenectomy. Colonoscopy. MIA. Mechanical valve Past Anesthesia/Blood Transfusion Reactions: Motion Sickness Additional Past Anesthesia/Blood Transfusion Reaction / Comment(s): no blood transfusions Past Psychological History: Anxiety Smoking Status: Former smoker Past Alcohol Use History: None Reported Past Drug Use History: None Reported - Past Family History Mother Family Medical History: No Reported History Additional Family Medical History / Comment(s): Mother of chf at the age of 84 yrs. Sister(s) Family Medical History: Cancer Additional Family Medical History / Comment(s): mult myeloma Father Family Medical History: No Reported History Additional Family Medical History / Comment(s): Father was healthy and lived to be 96 yrs old. <Agustina Gipson - Last Filed: 09/09/22 22:41> General Exam Limitations: no limitations <Agustina Gipson - Last Filed: 09/09/22 22:41> Limitations: no limitations General appearance: alert, in no apparent distress Head exam: Present: atraumatic, normocephalic, normal inspection Eye exam: Present: normal appearance, PERRL Pupils: Present: normal accommodation ENT exam: Present: normal exam, normal oropharynx, mucous membranes moist Neck exam: Present: normal inspection, full ROM Respiratory exam: Present: normal lung sounds bilaterally Cardiovascular Exam: Present: regular rate, normal rhythm, normal heart sounds GI/Abdominal exam: Present: soft, normal bowel sounds Extremities exam: Present: normal inspection, full ROM Back exam: Present: normal inspection, full ROM Neurological exam: Present: alert, oriented X3, CN II-XII intact Psychiatric exam: Present: normal affect, normal mood Skin exam: Present: warm, dry <Angel Allred - Last Filed: 09/10/22 04:56> Course Vital Signs 09/09/22 09/10/22 09/10/22 22:30 02:48 04:23 Temperature 97.9 F Pulse Rate 118 H 116 H Respiratory 16 18 18 Rate Blood Pressure 117/64 106/60 O2 Sat by Pulse 98 99 98 Oximetry Medical Decision Making - Lab Data Result diagrams: 09/09/22 23:06 09/09/22 23:06 <Angel Allred - Last Filed: 09/10/22 04:56> - Medical Decision Making Was pt. sent in by a medical professional or institution (, [facility], RN TRANSPORT, urgent care, hospital, or chcf...) When possible be specific @ -No Did you speak to anyone other than the patient for history (EMS, parent, family, police, friend...)? What history was obtained from this source @ -No Did you review nursing and triage notes (agree or disagree)? Why? @ -I reviewed and agree with nursing and triage notes Were old charts reviewed (outside hosp., previous admission, EMS record, old EKG, old radiological studies, urgent care reports/EKG's, chcf records)? Report findings @ -No old charts were reviewed Differential Diagnosis (chest pain, altered mental status, abdominal pain women, abdominal pain men, vaginal bleeding, weakness, fever, dyspnea, syncope, headache, dizziness, GI bleed, back pain, seizure, CVA, palpatations, mental health)? @ -Nosebleed, supratherapeutic Coumadin, nasal abrasion EKG interpreted by me (3pts min.). @ -None X-rays interpreted by me (1pt min.). @ -None done CT interpreted by me (1pt min.). @ -None done U/S interpreted by me (1pt. min.). @ -None done What testing was considered but not performed or refused? (CT, X-rays, U/S, labs)? Why? @ -None What meds were considered but not given or refused? Why? @ -None Did you discuss the management of the patient with other professionals (professionals i.e. T[facility] Sharma, RN TRANSPORT, lab, RT, psych nurse, social security assessor, cyber engineer, teacher, space officer, porter sample case)? Give summary @ -No Was smoking cessation discussed for >3mins.? @ -No Was critical care preformed (if so, how long)? @ -No Were there social determinants of health that impacted care today? How? (Homelessness, low income, unemployed, alcoholism, drug addiction, transportation, low edu. Level, literacy, decrease access to med. care, chcf, rehab)? @ -No Was there de-escalation of care discussed even if they declined (Discuss DNR or withdrawal of care, Hospice)? DNR status @ -No What co-morbidities impacted this encounter? (DM, HTN, Smoking, COPD, CAD, Cancer, CVA, ARF, Chemo, Hep., AIDS, mental health diagnosis, sleep apnea, morbid obesity)? @ -Recent open-heart surgery, on Coumadin, hypertension Was patient admitted / discharged? Hospital course, mention meds given and route, prescriptions, significant lab abnormalities, going to OR and other pertinent info. @ -The patient was seen and evaluated emergency department. Physical exam, the patient was resting in bed without any acute distress. The patient had been waiting in the emergency department waiting room for several hours and on my reevaluation in the room, the patient's nosebleed had arty stopped. The patient denied of any abnormalities noted on exam and was stable for discharge home. The patient's INR was only slightly elevated at 3.7 and was arty instructed previously by his primary care physician to hold his next dose. The patient was advised report back to the emergency department if he had worsening pain or worsening bleeding that was uncontrolled. The patient was also given follow-up with ENT. The patient was also advised to continue to use a humidifier in his room and to continue to use the medications as previously prescribed by his primary care physician. The patient was agreeable to this and all of his questions were answered reportedly. The patient was discharged home in stable condition. Undiagnosed new problem with uncertain prognosis? @ -No Drug Therapy requiring intensive monitoring for toxicity (Heparin, Nitro, Insulin, Cardizem)? @ -No Were any procedures done? @ -No Diagnosis/symptom? @ -Nosebleed, resolved Acute, or Chronic, or Acute on Chronic? @ -Acute Uncomplicated (without systemic symptoms) or Complicated (systemic symptoms)? @ -Uncomplicated Side effects of treatment? @ -No Exacerbation, Progression, or Severe Exacerbation? @ -No Poses a threat to life or bodily function? How? (Chest pain, USA, GA, pneumonia, PE, COPD, DKA, ARF, appy, cholecystitis, CVA, Diverticulitis, Homicidal, Suicidal, threat to staff... and all critical care pts) @ -No (Angel Allred) - Lab Data Lab Results 09/09/22 09/09/22 09/09/22 Range/Units 23:06 23:06 23:06 WBC 6.9 (3.8-10.6) k/uL RBC 3.53 L (4.30-5.90) m/uL Hgb 10.4 L (13.0-17.5) gm/dL Hct 32.1 L (39.0-53.0) % MCV 90.9 (80.0-100.0) fL MCH 29.5 (25.0-35.0) pg MCHC 32.5 (31.0-37.0) g/dL RDW 15.9 H (11.5-15.5) % Plt Count 381 (150-450) k/uL MPV 8.6 Neutrophils % 72 % Lymphocytes % 17 % Monocytes % 7 % Eosinophils % 2 % Basophils % 1 % Neutrophils # 4.9 (1.3-7.7) k/uL Lymphocytes # 1.2 (1.0-4.8) k/uL Monocytes # 0.5 (0-1.0) k/uL Eosinophils # 0.2 (0-0.7) k/uL Basophils # 0.0 (0-0.2) k/uL Hypochromasia Moderate Poikilocytosis Slight PT 36.1 H (9.0-12.0) sec INR 3.7 H (<1.2) Sodium 139 (137-145) mmol/L Potassium 3.7 (3.5-5.1) mmol/L Chloride 102 (98-107) mmol/L Carbon Dioxide 24 (22-30) mmol/L Anion Gap 13 mmol/L BUN 21 H (9-20) mg/dL Creatinine 0.77 (0.66-1.25) mg/dL Est GFR (CKD-EPI)AfAm >90 (>60 ml/min/1.73 sqM) Est GFR (CKD-EPI)NonAf >90 (>60 ml/min/1.73 sqM) Glucose 124 H (74-99) mg/dL Calcium 9.6 (8.4-10.2) mg/dL Total Bilirubin 1.0 (0.2-1.3) mg/dL AST 33 (17-59) U/L ALT 65 H (4-49) U/L Alkaline Phosphatase 91 (38-126) U/L Total Protein 7.6 (6.3-8.2) g/dL Albumin 4.2 (3.5-5.0) g/dL Disposition <Vogley,Agustina - Last Filed: 09/09/22 22:41> Is patient prescribed a controlled substance at d/c from ED?: No Time of Disposition: 03:30 <Angel Allred - Last Filed: 09/10/22 04:56> Clinical Impression: Nosebleed Disposition: HOME SELF-CARE Condition: Stable Instructions (If sedation given, give patient instructions): Nosebleed (ED) Referrals: Lc Barajas DO [Primary Care Provider] - 1-2 days Malik Pineda MD [STAFF PHYSICIAN] - 1-2 days
[2022-09-09 23:14] LABS: Basophils % (A) 1 %; Eosinophils # (A) 0.2 k/uL (0-0.7); Eosinophils % (A) 2 %; HCT 32.1 % (39.0-53.0); HGB 10.4 gm/dL (13.0-17.5); Hypochromasia Moderate; Lymphocytes # (A) 1.2 k/uL (1.0-4.8); Lymphocytes % (A) 17 %; MCH 29.5 pg (25.0-35.0); MCHC 32.5 g/dL (31.0-37.0); MCV 90.9 fL (80.0-100.0); Mean Platelet Volume 8.6; Monocytes # (A) 0.5 k/uL (0-1.0); Monocytes % (A) 7 %; Neutrophils # (A) 4.9 k/uL (1.3-7.7); Neutrophils % (A) 72 %; Platelet Count 381 k/uL (150-450); Poikilocytosis Slight; RBC 3.53 m/uL (4.30-5.90); RDW 15.9 % (11.5-15.5); WBC 6.9 k/uL (3.8-10.6)
[2022-09-09 23:23] LABS: ALT 65 U/L (4-49); AST 33 U/L (17-59); African American GFR (CKD) >90 (>60 ml/min/1.73 sqM); Albumin 4.2 g/dL (3.5-5.0); Alkaline Phosphatase 91 U/L (38-126); Anion Gap 13 mmol/L; Blood Urea Nitrogen 21 mg/dL (9-20); Calcium 9.6 mg/dL (8.4-10.2); Carbon Dioxide 24 mmol/L (22-30); Chloride 102 mmol/L (98-107); Glucose 124 mg/dL (74-99); Non-African American GFR(CKD) >90 (>60 ml/min/1.73 sqM); Potassium 3.7 mmol/L (3.5-5.1); Sodium 139 mmol/L (137-145); Total Protein 7.6 g/dL (6.3-8.2)
[2022-09-09 23:29] LABS: INR 3.7 (<1.2); Prothrombin Time 36.1 sec (9.0-12.0)
[2022-09-10 02:49] VITALS: BP 106/60; PULSE 116; RESP 18
[2022-09-10] MEDS ORDERED: ONDANSETRON ODT 4 MG TAB PO STA (03:57)
== END 2022-09-10 04:24 | disposition home or self-care (01) ==
LOC: EC 22:21
DX: R04.0 Epistaxis (principal); I10 Essential (primary) hypertension; E78.5 Hyperlipidemia, unspecified; K21.9 Gastro-esophageal reflux disease without esophagitis; M19.90 Unspecified osteoarthritis, unspecified site; E07.9 Disorder of thyroid, unspecified; F41.9 Anxiety disorder, unspecified; Z79.890 Hormone replacement therapy; Z79.82 Long term (current) use of aspirin; Z79.899 Other long term (current) drug therapy; Z87.891 Personal history of nicotine dependence
CPT/HCPCS: 36415; 80053; 85025; 85610; 93005; 99283

== ENCOUNTER → 2022-09-15 | Outpatient (CLI) | payer BC ==
--- NOTE | 2022-09-15 21:32 | CT ---
EXAMINATION TYPE: CT sinus wo con CT DLP: 618.10 mGycm, Automated exposure control for dose reduction was used. DATE OF EXAM: 09/15/2022 5:57 PM COMPARISON: CT head 04/30/2019. CLINICAL INDICATION:Male, 62 years old with history of R04.0; PHH, CONTRAST: None. TECHNIQUE: Multiple thin axial images were obtained through the paranasal sinuses without the use of IV contrast. Additional coronal and sagittal reformatted images were submitted for evaluation. FINDINGS: Dental amalgam increased streak artifact which limits evaluation. Motion degraded examinati on. Frontal sinuses: Normally developed and aerated. Frontal Recess: Clear Maxillary Sinuses: Normally developed. Moderate mucosal thickening of the right maxillary sinus with synechiae air-fluid level. Mild mucosal thickening of the left maxillary sinus. Maxillary Infundibula([facility]): The left is clear and the right maxillary ostium is opacified, . Ethmoid sinuses: Normally developed and aerated. Ethmoidal notch: Protected and abutting the lateral lamina. Sphenoid sinuses: Normally developed. There is mild mucosal thickening of the right sphenoid sinus. T here is sellar sphenoid sinus pneumatization without evidence of dehiscence. No dehiscence of caroti d canal. No evidence of optic nerve dehiscence within the sphenoid sinus. Sphenoethmoidal recesses: C lear. Nasal septum: Mildly deviated to the right with a spur noted.. Nasal Turbinates: Within normal limits. Mastoid air cells & middle ears: The air cells are clear. Cerumen within the left external auditory c anal. Modified Soft tissues & Brain: Partially seen without gross abnormality. Globes are intact. Other: Cribriform plate demonstrates symmetric Keros classification type 2 cribriform plate. No evidence of bony dehiscence of skull base. Lamina papyracea is intact without evidence of remote orbital fracture or orbital prolapse into the e thmoid sinus. Pneumatization of the ebenezer brittni. IMPRESSION: Moderate mucosal thickening of the right maxillary sinus with minimal mucosal thickening of the right sphenoid and left maxillary sinuses. Opacification of the right ostiomeatal complex.
== END | disposition home or self-care (01) ==
LOC: RADCTMAIN 17:10
PROVIDERS: ATTEND Otolaryngology
DX: J32.0 Chronic maxillary sinusitis (principal); J32.3 Chronic sphenoidal sinusitis; J34.89 Other specified disorders of nose and nasal sinuses; R04.0 Epistaxis
CPT/HCPCS: 70486

== ENCOUNTER 2022-10-20 12:03 | Observation (INO) | payer BC ==
--- NOTE | 2022-10-20 12:26 | ED ---
Neuro HPI - General Chief Complaint: Neuro Symptoms/Deficit Stated Complaint: Post Op, Pacemaker, Numbness Time Seen by Provider: 10/20/22 12:10 Source: patient Mode of arrival: ambulatory Limitations: no limitations - History of Present Illness Is the patient presenting with stroke symptoms?: Yes Initial Comments: 62-year-old male with past medical history of valvular disease status post double valve replacement 2 months ago on Coumadin, hypertension who presents to the emergency department reporting numbness to his left arm. 30 minutes prior to hospital arrival the patient was at his work when he had sudden weakness in his whole body and reports that he had numbness to his left arm. Denies previous history of stroke. No headache or visual changes. No slurred speech or confusion. Denies any illness or weakness in his lower extremity. Admits that he saw the chiropractor this morning who did adjust his neck. No alleviating, precipitating or modifying factors - Related Data Home Medications: Home Medications Medication Instructions Recorded Confirmed Ezetimibe [Zetia] 10 mg PO DAILY 05/04/19 10/20/22 Fexofenadine HCl 180 mg PO DAILY PRN 05/04/19 10/20/22 Levothyroxine Sodium [Synthroid] 50 mcg PO DAILY 05/04/19 10/20/22 Metoprolol Tartrate [Lopressor] 25 mg PO BID 05/04/19 10/20/22 Omeprazole 20 mg PO DAILY 05/04/19 10/20/22 Empagliflozin [Jardiance] 25 mg PO DAILY 06/11/22 10/20/22 Cholecalciferol (Vitamin D3) 75 mcg PO DAILY 10/20/22 10/20/22 [Vitamin D3 (3000 Iu)] Ondansetron [Zofran] 4 mg PO TID PRN 10/20/22 10/20/22 Warfarin [Coumadin] 5 mg PO Q2D@182910/20/22 10/20/22 Warfarin [Coumadin] 7.5 mg PO Q2D@182910/20/22 10/20/22 polyethylene glycoL 3350 [Miralax] 17 gm PO DAILY PRN 10/20/22 10/20/22 Loratadine [Claritin] 10 mg PO 10/22/22 Previous Rx's Medication Instructions Recorded Ascorbic Acid [Vitamin C] 1,000 mg PO DAILY #28 tab 03/05/20 Zinc Sulfate [Orazinc] 220 mg PO DAILY #14 cap 03/05/20 Allergies/Adverse Reactions: Allergies Allergy/AdvReac Type Severity Reaction Status Date / Time No Known Allergies Allergy Verified 10/20/22 15:02 Review of Systems ROS Statement: Those systems with pertinent positive or pertinent negative responses have been documented in the HPI. ROS Other: All systems not noted in ROS Statement are negative. General Exam Limitations: no limitations General appearance: alert, in no apparent distress Head exam: Present: atraumatic, normocephalic, normal inspection Eye exam: Present: normal appearance, PERRL, EOMI. Absent: scleral icterus, conjunctival injection, periorbital swelling ENT exam: Present: normal exam, mucous membranes moist Neck exam: Present: normal inspection. Absent: tenderness, meningismus, lymphadenopathy Respiratory exam: Present: normal lung sounds bilaterally. Absent: respiratory distress, wheezes, rales, rhonchi, stridor Cardiovascular Exam: Present: regular rate, normal rhythm, normal heart sounds. Absent: systolic murmur, diastolic murmur, rubs, gallop, clicks GI/Abdominal exam: Present: soft, normal bowel sounds. Absent: distended, tenderness, guarding, rebound, rigid Extremities exam: Present: normal inspection, full ROM, normal capillary refill. Absent: tenderness, pedal edema, joint swelling, calf tenderness Back exam: Present: normal inspection Neurological exam: Present: alert, oriented X3, CN II-XII intact, other (decreased sensation left arm) Psychiatric exam: Present: normal affect, normal mood Skin exam: Present: warm, dry, intact, normal color. Absent: rash Stroke MDM - Lab Data Result diagrams: 10/20/22 12:19 10/20/22 12:19 Lab Results 10/20/22 10/20/22 10/20/22 Range/Units 12:19 12:19 12:19 WBC 9.0 (3.8-10.6) k/uL RBC 4.61 (4.30-5.90) m/uL Hgb 13.3 (13.0-17.5) gm/dL Hct 42.6 (39.0-53.0) % MCV 92.5 (80.0-100.0) fL MCH 28.9 (25.0-35.0) pg MCHC 31.2 (31.0-37.0) g/dL RDW 16.2 H (11.5-15.5) % Plt Count 245 (150-450) k/uL MPV 10.1 Neutrophils % 68 % Lymphocytes % 20 % Monocytes % 8 % Eosinophils % 2 % Basophils % 0 % Neutrophils # 6.1 (1.3-7.7) k/uL Lymphocytes # 1.8 (1.0-4.8) k/uL Monocytes # 0.7 (0-1.0) k/uL Eosinophils # 0.1 (0-0.7) k/uL Basophils # 0.0 (0-0.2) k/uL Hypochromasia Slight Anisocytosis Slight PT 41.6 H (9.0-12.0) sec INR 4.2 H (<1.2) APTT 33.2 H (22.0-30.0) sec Sodium 142 (137-145) mmol/L Potassium 4.4 (3.5-5.1) mmol/L Chloride 106 (98-107) mmol/L Carbon Dioxide 25 (22-30) mmol/L Anion Gap 11 mmol/L BUN 20 (9-20) mg/dL Creatinine 0.61 L (0.66-1.25) mg/dL Est GFR (CKD-EPI)AfAm >90 (>60 ml/min/1.73 sqM) Est GFR (CKD-EPI)NonAf >90 (>60 ml/min/1.73 sqM) Glucose 87 (74-99) mg/dL Estimated Ave Glu mg/dL mg/dL Hemoglobin A1c (<=6.0) % Calcium 9.8 (8.4-10.2) mg/dL Total Bilirubin 1.0 (0.2-1.3) mg/dL AST 35 (17-59) U/L ALT 21 (4-49) U/L Alkaline Phosphatase 70 (38-126) U/L Creatine Kinase 58 (55-170) U/L Troponin I (0.000-0.034) ng/mL Total Protein 8.8 H (6.3-8.2) g/dL Albumin 4.9 (3.5-5.0) g/dL Vitamin B12 (200.0-944.0) pg/mL Folate (4.40-31.00) ng/mL 10/20/22 10/20/22 10/20/22 Range/Units 12:19 12:19 12:19 WBC (3.8-10.6) k/uL RBC (4.30-5.90) m/uL Hgb (13.0-17.5) gm/dL Hct (39.0-53.0) % MCV (80.0-100.0) fL MCH (25.0-35.0) pg MCHC (31.0-37.0) g/dL RDW (11.5-15.5) % Plt Count (150-450) k/uL MPV Neutrophils % % Lymphocytes % % Monocytes % % Eosinophils % % Basophils % % Neutrophils # (1.3-7.7) k/uL Lymphocytes # (1.0-4.8) k/uL Monocytes # (0-1.0) k/uL Eosinophils # (0-0.7) k/uL Basophils # (0-0.2) k/uL Hypochromasia Anisocytosis PT (9.0-12.0) sec INR (<1.2) APTT (22.0-30.0) sec Sodium (137-145) mmol/L Potassium (3.5-5.1) mmol/L Chloride (98-107) mmol/L Carbon Dioxide (22-30) mmol/L Anion Gap mmol/L BUN (9-20) mg/dL Creatinine (0.66-1.25) mg/dL Est GFR (CKD-EPI)AfAm (>60 ml/min/1.73 sqM) Est GFR (CKD-EPI)NonAf (>60 ml/min/1.73 sqM) Glucose (74-99) mg/dL Estimated Ave Glu mg/dL 111 mg/dL Hemoglobin A1c 5.5 (<=6.0) % Calcium (8.4-10.2) mg/dL Total Bilirubin (0.2-1.3) mg/dL AST (17-59) U/L ALT (4-49) U/L Alkaline Phosphatase (38-126) U/L Creatine Kinase (55-170) U/L Troponin I <0.012 (0.000-0.034) ng/mL Total Protein (6.3-8.2) g/dL Albumin (3.5-5.0) g/dL Vitamin B12 623.0 (200.0-944.0) pg/mL Folate (4.40-31.00) ng/mL 10/20/22 Range/Units 12:19 WBC (3.8-10.6) k/uL RBC (4.30-5.90) m/uL Hgb (13.0-17.5) gm/dL Hct (39.0-53.0) % MCV (80.0-100.0) fL MCH (25.0-35.0) pg MCHC (31.0-37.0) g/dL RDW (11.5-15.5) % Plt Count (150-450) k/uL MPV Neutrophils % % Lymphocytes % % Monocytes % % Eosinophils % % Basophils % % Neutrophils # (1.3-7.7) k/uL Lymphocytes # (1.0-4.8) k/uL Monocytes # (0-1.0) k/uL Eosinophils # (0-0.7) k/uL Basophils # (0-0.2) k/uL Hypochromasia Anisocytosis PT (9.0-12.0) sec INR (<1.2) APTT (22.0-30.0) sec Sodium (137-145) mmol/L Potassium (3.5-5.1) mmol/L Chloride (98-107) mmol/L Carbon Dioxide (22-30) mmol/L Anion Gap mmol/L BUN (9-20) mg/dL Creatinine (0.66-1.25) mg/dL Est GFR (CKD-EPI)AfAm (>60 ml/min/1.73 sqM) Est GFR (CKD-EPI)NonAf (>60 ml/min/1.73 sqM) Glucose (74-99) mg/dL Estimated Ave Glu mg/dL mg/dL Hemoglobin A1c (<=6.0) % Calcium (8.4-10.2) mg/dL Total Bilirubin (0.2-1.3) mg/dL AST (17-59) U/L ALT (4-49) U/L Alkaline Phosphatase (38-126) U/L Creatine Kinase (55-170) U/L Troponin I (0.000-0.034) ng/mL Total Protein (6.3-8.2) g/dL Albumin (3.5-5.0) g/dL Vitamin B12 (200.0-944.0) pg/mL Folate 18.40 (4.40-31.00) ng/mL - Medical Decision Making Was pt. sent in by a medical professional or institution ([facility] Sharma, [employer], urgent care, hospital, or [facility]...) When possible be specific @ -No Did you speak to anyone other than the patient for history (EMS, parent, family, police, friend...)? What history was obtained from this source @ -No Did you review nursing and triage notes (agree or disagree)? Why? @ -I reviewed and agree with nursing and triage notes Were old charts reviewed (outside hosp., previous admission, EMS record, old EKG, old radiological studies, urgent care reports/EKG's, [facility] records)? Report findings @ -No old charts were reviewed Differential Diagnosis (chest pain, altered mental status, abdominal pain women, abdominal pain men, vaginal bleeding, weakness, fever, dyspnea, syncope, headache, dizziness, GI bleed, back pain, seizure, CVA, palpatations, mental health, musculoskeletal)? @ -Differential CVA Ischemic stroke, hemorrhagic stroke, brain tumor, atypical migraine, Wernicke's encephalopathy, seizure, multiple sclerosis, meningitis, encephalitis, hypoglycemia, Guillain-Fernandez, electrolytes disturbance, myasthenia gravis.... This is not meant to be an all-inclusive list EKG interpreted by me (3pts min.). @ -Yes and demonstrates electronic ventricular pacemaker with a rate of 101. QRS 128. QTC of 456. Significant baseline artifact. Pacemaker captures appropriately X-rays interpreted by me (1pt min.). @ -Yes and demonstrates no acute process CT interpreted by me (1pt min.). @ -Yes and demonstrates no acute studies U/S interpreted by me (1pt. min.). @ -None done What testing was considered but not performed or refused? (CT, X-rays, U/S, l abs)? Why? @ -None What meds were considered but not given or refused? Why? @ -None Did you discuss the management of the patient with other professionals (professionals i.e. [facility] Sharma, [employer], lab, RT, psych nurse, social media marketing analyst, criminal justice lawyer, teacher, employee service officer, counter caser)? Give summary @ -Spoke with Dr. Snider Was smoking cessation discussed for >3mins.? @ -No Was critical care preformed (if so, how long)? @ -35 minutes for stroke activation Were there social determinants of health that impacted care today? How? (Homelessness, low income, unemployed, alcoholism, drug addiction, transportation, low edu. Level, literacy, decrease access to med. care, halfway, rehab)? @ -No Was there de-escalation of care discussed even if they declined (Discuss DNR or withdrawal of care, Hospice)? DNR status @ -No What co-morbidities impacted this encounter? (DM, HTN, Smoking, COPD, CAD, Cancer, CVA, ARF, Chemo, Hep., AIDS, mental health diagnosis, sleep apnea, morbid obesity)? @ -Valvular disease Was patient admitted / discharged? Hospital course, mention meds given and route, prescriptions, significant lab abnormalities, going to OR and other pertinent info. @ -Upon arrival patient was placed into trauma 4. Thorough history and physical exam was performed. Patient does have an NIH of 1-2 left arm paresthesias. Onset was 30 minutes prior to hospital arrival. Code Alteplase is activated. Laboratory studies were conducted. Patient does go for CT of his brain as well as CT angiography. Laboratory studies are reviewed and demonstrate an INR of 4.2. CT and CT angiography demonstrates no significant stenosis. No evidence of dissection. No aneurysm. Results discussed the patient. He continues to have persistent symptoms. Did recommend admission for which the patient was agreeable. I spoke with Dr. snider who agreed to admit the patient Undiagnosed new problem with uncertain prognosis? @ -yes Drug Therapy requiring intensive monitoring for toxicity (Heparin, Nitro, Insulin, Cardizem)? @ -No Were any procedures done? @ -No Diagnosis/symptom? @ -Acute left arm numbness, possible CVA Acute, or Chronic, or Acute on Chronic? @ -Acute Uncomplicated (without systemic symptoms) or Complicated (systemic symptoms)? @ -Complicated Side effects of treatment? @ -No Exacerbation, Progression, or Severe Exacerbation? @ -No Poses a threat to life or bodily function? How? (Chest pain, [place], [place], pneumonia, PE, COPD, DKA, ARF, appy, cholecystitis, CVA, Diverticulitis, Homicidal, Suicidal, threat to staff... and all critical care pts) @ -Yes patient presents with possible stroke Past Medical History Past Medical History: Cancer, GERD/Reflux, Hyperlipidemia, Hypertension, Osteoarthritis (OA), Skin Disorder, Sleep Apnea/CPAP/BIPAP, Thyroid Disorder Additional Past Medical History / Comment(s): dx Hodgkins Lymphoma at age 24-tx radiation therapy. "chest discomfort/tightness", one heart valve "does not close all the way", little light headed and SOB with exertion at times. no cpap used, occ. gout, eczema,. see chiropractor for back and neck. recent URI infection treated with steroids History of Any Multi-Drug Resistant Organisms: None Reported Past Surgical History: Adenoidectomy, Pacemaker, Tonsillectomy Additional Past Surgical History / Comment(s): Biopsy of abdominal organs and mass rt side of neck removed when dx. with Lymphoma, partial spleenectomy. C olonoscopy. MIA. Mechanical valve Past Anesthesia/Blood Transfusion Reactions: Motion Sickness Additional Past Anesthesia/Blood Transfusion Reaction / Comment(s): no blood transfusions Past Psychological History: Anxiety Smoking Status: Former smoker Past Alcohol Use History: None Reported Past Drug Use History: None Reported - Past Family History Mother Family Medical History: No Reported History Additional Family Medical History / Comment(s): Mother of chf at the age of 84 yrs. Sister(s) Family Medical History: Cancer Additional Family Medical History / Comment(s): mult myeloma Father Family Medical History: No Reported History Additional Family Medical History / Comment(s): Father was healthy and lived to be 96 yrs old. Course Vital Signs 10/20/22 10/20/22 10/20/22 12:06 12:19 12:34 Temperature 97.5 F L Pulse Rate 103 H 110 H 100 Respiratory 20 20 20 Rate Blood Pressure 127/78 130/68 107/78 O2 Sat by Pulse 99 98 97 Oximetry 10/20/22 10/20/22 10/20/22 13:00 14:38 15:40 Temperature Pulse Rate 104 H 102 H 105 H Respiratory 16 20 20 Rate Blood Pressure 133/86 133/82 121/83 O2 Sat by Pulse 98 98 96 Oximetry 10/20/22 10/20/22 17:15 19:25 Temperature Pulse Rate 105 H 105 H Respiratory 20 18 Rate Blood Pressure 125/82 134/95 O2 Sat by Pulse 97 97 Oximetry Disposition Clinical Impression: Arm paresthesia, left, Supratherapeutic INR Disposition: ADMITTED IP TO THIS HOSP Is patient prescribed a controlled substance at d/c from ED?: No Time of Disposition: 13:56 Decision to Admit Reason: Admit from EC Decision Date: 10/20/22 Decision Time: 13:56
[2022-10-20 12:27] LABS: Anisocytosis Slight; Basophils % (A) 0 %; Eosinophils # (A) 0.1 k/uL (0-0.7); Eosinophils % (A) 2 %; HCT 42.6 % (39.0-53.0); HGB 13.3 gm/dL (13.0-17.5); Hypochromasia Slight; Lymphocytes # (A) 1.8 k/uL (1.0-4.8); Lymphocytes % (A) 20 %; MCH 28.9 pg (25.0-35.0); MCHC 31.2 g/dL (31.0-37.0); MCV 92.5 fL (80.0-100.0); Mean Platelet Volume 10.1; Monocytes # (A) 0.7 k/uL (0-1.0); Monocytes % (A) 8 %; Neutrophils # (A) 6.1 k/uL (1.3-7.7); Neutrophils % (A) 68 %; Platelet Count 245 k/uL (150-450); RBC 4.61 m/uL (4.30-5.90); RDW 16.2 % (11.5-15.5)
[2022-10-20 12:38] LABS: INR 4.2 (<1.2); Partial Thromboplastin Time 33.2 sec (22.0-30.0); Prothrombin Time 41.6 sec (9.0-12.0)
--- NOTE | 2022-10-20 12:38 | CT ---
EXAMINATION TYPE: CT brain wo con for TPA CT DLP: 1147.6 mGycm, Automated exposure control for dose reduction was used. DATE OF EXAM: 10/20/2022 12:32 PM COMPARISON: 09/15/2022 CT, 04/30/2019. CLINICAL INDICATION:Male, 62 years old with history of Neuro deficit, acute, stroke suspected, lt humera ed numbness TECHNIQUE: Brain: Axial CT images of the brain were obtained with coronal and sagittal reformats created and rev iewed. Contrast used: None. Oral contrast used: None. FINDINGS: Brain: Extra-axial spaces: No abnormal extra-axial fluid collections. Ventricular system: Within normal limits Cerebral parenchyma: No acute intraparenchymal hemorrhage or mass effect. The brown-white junction is well differentiated. Cerebellum: Unremarkable. Mass effect: No evidence of midline shift. Intracranial vasculature: unremarkable Soft tissues: Normal. Calvarium/osseous structures: No depressed skull fracture. Paranasal sinuses and mastoid air cells: Mild scattered paranasal sinus disease. Visualized orbits: Orbital contents are intact. IMPRESSION: No acute intracranial process.
[2022-10-20 12:46] LABS: ALT 21 U/L (4-49); African American GFR (CKD) >90 (>60 ml/min/1.73 sqM); Albumin 4.9 g/dL (3.5-5.0); Anion Gap 11 mmol/L; Blood Urea Nitrogen 20 mg/dL (9-20); Calcium 9.8 mg/dL (8.4-10.2); Carbon Dioxide 25 mmol/L (22-30); Chloride 106 mmol/L (98-107); Creatine Kinase 58 U/L (55-170); Glucose 87 mg/dL (74-99); Non-African American GFR(CKD) >90 (>60 ml/min/1.73 sqM); Sodium 142 mmol/L (137-145); Total Protein 8.8 g/dL (6.3-8.2)
[2022-10-20 12:47] LABS: AST 35 U/L (17-59); Alkaline Phosphatase 70 U/L (38-126); Potassium 4.4 mmol/L (3.5-5.1)
--- NOTE | 2022-10-20 13:02 | CT ---
EXAMINATION TYPE: CT angio head neck CT DLP: 496.9 mGycm, Automated exposure control for dose reduction was used. DATE OF EXAM: 10/20/2022 12:51 PM COMPARISON: 10/20/2022. CLINICAL INDICATION:Male, 62 years old with history of Neuro deficit, acute, stroke suspected; PHH, L t sided weakness TECHNIQUE: Axially acquired helical CT angiogram of the head and neck was obtained with contrast. Axi al images are supplemented with 3D reconstructions [facility] NASCET criteria used. Contrast used:65 mL of Isovue 370 with IV Contrast, Oral contrast used: None. FINDINGS: CTA HEAD: No evidence of acute intracranial hemorrhage, mass effect, or midline shift. The ventricles, sulci, a nd cisterns are unremarkable. The visualized portions of the internal carotid arteries, middle cerebral arteries, anterior cerebral arteries, and posterior cerebral arteries are patent. The basilar and vertebral arteries are patent. CTA NECK: Right Carotid System: The common carotid and external carotid arteries are patent. There is approximately 50% stenosis at t he carotid bifurcation secondary to calcified/noncalcified plaquing. The rest of the internal carotid artery is patent. Left Carotid System: The common carotid and external carotid arteries are patent. There is approximately 50% stenosis at t he carotid bifurcation secondary to calcified/noncalcified plaquing. The rest of the internal carotid artery is patent. Vertebral arteries are patent without evidence hemodynamically significant stenosis. There is a three-vessel aortic arch. The origins of the great vessels are patent. No evidence of hemo dynamically significant stenosis. Upper thorax: Paraseptal emphysema changes. IMPRESSION: 1. No evidence of dissection of the cervical internal carotid arteries or vertebral arteries or any e vidence of significant stenosis at the carotid bifurcations. 2. No evidence of intracranial high-grade stenosis or intracranial aneurysm.
--- NOTE | 2022-10-20 13:25 | XR ---
EXAMINATION TYPE: XR chest 2V DATE OF EXAM: 10/20/2022 COMPARISON: 03/05/2020 TECHNIQUE: PA and lateral views submitted. HISTORY: Altered mental status FINDINGS: The lungs are clear and there is no pneumothorax, pleural effusion, or focal pneumonia. Heart size normal and no overt failure. Osseous structures demonstrate hypertrophic and degenerative changes of the spine. Sternotomy changes and cardiac device are noted. Prosthetic heart valve suggested. Right a pical pleural thickening stable. Elevated right hemidiaphragm stable. Suggestion of epicardial lead. Stable surgical clip overlying the left upper abdomen IMPRESSION: 1. No acute process.
[2022-10-20] MEDS ORDERED: ASPIRIN 325 MG TAB PO STA (14:08)
[2022-10-20] MEDS ORDERED: ONDANSETRON 4 MG TAB PO PRN (18:23)
[2022-10-20] MEDS ORDERED: polyethylene glycoL 3350 17 GM POWD.PACK PO PRN (18:23)
[2022-10-20] MEDS: METOPROLOL TARTRATE 25 MG TAB PO SCH (21:25)
[2022-10-20] MEDS: ACETAMINOPHEN TAB 500 MG TAB PO PRN (21:25)
--- NOTE | 2022-10-20 21:35 | P.HPIM ---
History of Present Illness H&P Date: 10/20/22 Chief Complaint: Left-sided numbness This is a pleasant 62-year-old patient who follows with Dr. Barajas. 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 Chronic stable medical conditions include GERD, hyperlipidemia, hypertension, osteoarthritis, permanent pacemaker, hypothyroid, obstructive sleep apnea does not use CPAP, gout, anxiety. In the past has had treatment for Hodgkin's with radiation treatment. Recently patient at [facility], received mechanical mitral aortic valve replaced. On Coumadin for the same. Following that patient did have epistaxis followed by Dr. Caldwell. Also diagnosed with chronic sinusitis. That is currently under control. Patient today for a long time and to see the chiropractor. Had some neck manipulation done for some neck discomfort. This was around 11:00. Soon after patient noticed that his left side during the left arm and torso shoulder felt numb. Patient did feel lightheaded also had some nausea. No change in speech. No headache no change in vision. Came to the ER. Computed tomography scan of the brain and CT angiogram of both unremarkable. INR therapeutic. No further intervention was done. 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 . Ex-smoker. No alcohol. Physical examination: VITAL SIGNS: 97.5, 103, 20, 127/78, 99% room air GENERAL: BMI 26.4, reclining bed awake comfortable. EYES: Pupils equal. Conjunctiva normal. HEENT: External appearance of nose and ears normal, oral cavity grossly normal. NECK: JVD not raised; masses not palpable. HEART: First and second heart sounds are normal; no edema. LUNGS: Respiratory rate normal; clear to auscultation. ABDOMEN: Soft, nontender, liver spleen not palpable, no masses palpable. PSYCH: Alert and oriented x3; mood and affect normal. MUSCULOSKELETAL:No Clubbing/cyanosis;muscles-grossly intact NEUROLOGICAL: [Cranial nerves grossly intact; no facial asymmetry, possible part of the left arm 4/5. Slight decrease altered sensation of the left arm. LYMPHATICS: No lymph nodes palpable in the axilla and neck INVESTIGATIONS, reviewed in the clinical context: White count 19 hemoglobin 13.3 platelets 245 sodium 142 potassium 4.4 BUN [address] brain: Unremarkable CT angiography.: Unremarkable EKG tracing personally reviewed by me-ventricular pacemaker Chest x-ray film personally reviewed by me-cardiomegaly Assessment and plan: -Patient today had a neck manipulation the chiropractor about 11 PM. Shortly after patient had an episode of feeling weak in the left arm, left shoulder left torso accompanied by nausea and dizziness. This could be. Radiculopathy from neck manipulation. Central cause needs to be ruled out. Neuro checks. Consult neurology. -GERD Omeprazole -Hyperlipidemia Zetia 10 mg a day -Essential hypertension Lopressor 25 mg twice a day -Diabetes mellitus type 2 jardiance -Primary osteoarthritis -Hypothyroid Synthroid 50 g -Mechanical aortic and mitral valve recently done at [facility] -Coumadin monitoring Discussed with patient. Home medications resumed. Past Medical History Past Medical History: Cancer, GERD/Reflux, Hyperlipidemia, Hypertension, Osteoarthritis (OA), Skin Disorder, Sleep Apnea/CPAP/BIPAP, Thyroid Disorder Additional Past Medical History / Comment(s): dx Hodgkins Lymphoma at age 24-tx radiation therapy. "chest discomfort/tightness", one heart valve "does not close all the way", little light headed and SOB with exertion at times. no cpap used, occ. gout, eczema,. see chiropractor for back and neck. recent URI infection treated with steroids History of Any Multi-Drug Resistant Organisms: None Reported Past Surgical History: Adenoidectomy, Pacemaker, Tonsillectomy Additional Past Surgical History / Comment(s): Biopsy of abdominal organs and mass rt side of neck removed when dx. with Lymphoma, partial spleenectomy. Colonoscopy. MIA. Mechanical valve Past Anesthesia/Blood Transfusion Reactions: Motion Sickness Additional Past Anesthesia/Blood Transfusion Reaction / Comment(s): no blood transfusions Past Psychological History: Anxiety Smoking Status: Former smoker Past Alcohol Use History: None Reported Past Drug Use History: None Reported - Past Family History Mother Family Medical History: No Reported History Additional Family Medical History / Comment(s): Mother of chf at the age of 84 yrs. Sister(s) Family Medical History: Cancer Additional Family Medical History / Comment(s): mult myeloma Father Family Medical History: No Reported History Additional Family Medical History / Comment(s): Father was healthy and lived to be 96 yrs old. Medications and Allergies Home Medications Medication Instructions Recorded Confirmed Type Ezetimibe [Zetia] 10 mg PO DAILY 05/04/19 10/20/22 History Fexofenadine HCl 180 mg PO DAILY PRN 05/04/19 10/20/22 History Levothyroxine Sodium [Synthroid] 50 mcg PO DAILY 05/04/19 10/20/22 History Metoprolol Tartrate [Lopressor] 25 mg PO BID 05/04/19 10/20/22 History Omeprazole 20 mg PO DAILY 05/04/19 10/20/22 History Ascorbic Acid [Vitamin C] 1,000 mg PO DAILY #28 tab 03/05/20 10/20/22 Rx Zinc Sulfate [Orazinc] 220 mg PO DAILY #14 cap 03/05/20 10/20/22 Rx Empagliflozin [Jardiance] 25 mg PO DAILY 06/11/22 10/20/22 History Cholecalciferol (Vitamin D3) 75 mcg PO DAILY 10/20/22 10/20/22 History [Vitamin D3 (3000 Iu)] Ondansetron [Zofran] 4 mg PO TID PRN 10/20/22 10/20/22 History Warfarin [Coumadin] 5 mg PO Q2D@1830 10/20/22 10/20/22 History Warfarin [Coumadin] 7.5 mg PO Q2D@1830 10/20/22 10/20/22 History polyethylene glycoL 3350 [Miralax] 17 gm PO DAILY PRN 10/20/22 10/20/22 History Allergies Allergy/AdvReac Type Severity Reaction Status Date / Time No Known Allergies Allergy Verified 10/20/22 15:02 Physical Exam Vitals: Vital Signs Temp Pulse Pulse Resp BP BP Pulse Ox 10/20/22 20:22 98.3 F 107 H 14 118/79 97 10/20/22 19:25 105 H 18 134/95 97 10/20/22 17:15 105 H 20 125/82 97 10/20/22 15:40 105 H 20 121/83 96 10/20/22 14:38 102 H 20 133/82 98 10/20/22 13:00 104 H 16 133/86 98 10/20/22 12:34 100 20 107/78 97 10/20/22 12:19 110 H 20 130/68 98 10/20/22 12:06 97.5 F L 103 H 20 127/78 99 Intake and Output 10/20/22 10/20/22 10/20/22 06:59 14:59 22:59 Intake Total 500 Balance 500 Intake: Oral 500 Other: Weight 85.729 kg Results CBC & Chem 7: 10/20/22 12:19 10/20/22 12:19 Labs: Abnormal Lab Results - Last 24 Hours (Table) 10/20/22 10/20/22 10/20/22 Range/Units 12:19 12:19 12:19 RDW 16.2 H (11.5-15.5) % PT 41.6 H (9.0-12.0) sec INR 4.2 H (<1.2) APTT 33.2 H (22.0-30.0) sec Creatinine 0.61 L (0.66-1.25) mg/dL Total Protein 8.8 H (6.3-8.2) g/dL
[2022-10-21] MEDS: ACETAMINOPHEN TAB 500 MG TAB PO PRN ×2 (04:04→17:22)
[2022-10-21] MEDS: LEVOTHYROXINE 50 MCG TAB PO SCH (06:23)
[2022-10-21] MEDS: PANTOPRAZOLE 40 MG TABLET PO SCH (06:23)
[2022-10-21] MEDS: EZETIMIBE 10 MG TAB PO SCH (08:49)
[2022-10-21] MEDS: LORATADINE 10 MG TAB PO PRN (08:50)
[2022-10-21] MEDS: ASCORBIC ACID 500 MG TAB PO SCH (08:50)
[2022-10-21] MEDS: METOPROLOL TARTRATE 25 MG TAB PO SCH ×2 (08:51→20:01)
[2022-10-21] MEDS: DAPAGLIFLOZIN PROPANEDIOL 10 MG TABLET PO SCH (08:51)
[2022-10-21] MEDS: CHOLECALCIFEROL 25 MCG (1000 IU) TABLET PO SCH (08:52)
[2022-10-21 09:47] LABS: INR 3.2 (<1.2); Prothrombin Time 31.4 sec (9.0-12.0)
--- NOTE | 2022-10-21 14:40 | P.CNNES ---
History of Present Illness Consult date: 10/21/22 Requesting physician: Isaura Toscano Reason for Consult: Left arm numbness, possible TIA History of Present Illness: Patient is a 62-year-old male with history of mechanical valve, on anticoagulation with Coumadin, came to the hospital yesterday at 12:03 PM after he developed paresthesias in the upper limbs, left more than right. Patient states that he goes to chiropractor for long time. He gets adjustment for his l ower back, neck stiffness and gets massage. He goes there every 2 weeks although he has not gone to the chiropractor for 3 months, as he had undergone aortic valve and mitral valve replacement on 08/11/2022 followed by placement of pacemaker on 08/21/2022. Patient is on Coumadin since then. After 3 months, he went to his chiropractor yesterday. He underwent adjustment of the neck, did some stretching and snapped his neck both ways. From there he went to work. He was talking to his coworker when he developed some strange sensation, which he describes as numbness and tingling that went through the body from neck to the torso involving arms, left more than right, but not the lower limbs. This sensation lasted for about a few minutes, and he also felt lightheaded, nauseous, dizzy. He was not comfortable walking. Subsequently he noticed persistent numbness and tingling of the left arm. His brought him to the hospital. He denied any slurred speech, facial droop, visual disturbances, no neck or shoulder pain. He had slight nausea yesterday but no vomiting. Today he has no nausea. Vital signs on arrival blood pressure 127/78, pulse rate 103, temperature 97.5. Blood test shows normal CBC, INR 4.2, normal electrolytes, renal and hepatic panel, troponin negative. CT head revealed no acute process. I personally reviewed CT head agree with the findings. EKG shows electronic ventricular pacemaker. Marked ST elevation. Consider inferior injury. Chest x-ray showed no acute process. At present patient still has some tingling in the left arm but no neck pain. No weakness of the extremities. Patient takes levothyroxine, metoprolol, Zetia, omeprazole, Coumadin and Jardiance.. Review of Systems Constitutional: Reports weight loss, Denies chills, Denies fever Eyes: denies blurred vision, denies diplopia, denies pain Ears: deny: decreased hearing, ear discharge Ears, nose, mouth and throat: Reports epistaxis (In the past), Reports headache (Had yesterday. Does get this kind of MASON before also, now new type), Denies sore throat, Denies vertigo Cardiovascular: Denies chest pain, Denies shortness of breath, Denies syncope Respiratory: Denies cough, Denies excessive sputum Gastrointestinal: Reports nausea, Denies abdominal pain, Denies diarrhea, Denies vomiting Musculoskeletal: Denies myalgias Integumentary: Reports pruritus, Denies rash Neurological: Reports as per HPI Psychiatric: Reports anxiety, Reports depression Endocrine: Reports fatigue, Reports weight change Hematologic/Lymphatic: Reports easy bleeding, Denies easy bruising Past Medical History Past Medical History: Cancer, GERD/Reflux, Hyperlipidemia, Hypertension, Osteoarthritis (OA), Skin Disorder, Sleep Apnea/CPAP/BIPAP, Thyroid Disorder Additional Past Medical History / Comment(s): dx Hodgkins Lymphoma at age 24-tx radiation therapy. "chest discomfort/tightness", one heart valve "does not close all the way", little light headed and SOB with exertion at times. no cpap used, occ. gout, eczema,. see chiropractor for back and neck. recent URI infection treated with steroids History of Any Multi-Drug Resistant Organisms: None Reported Past Surgical History: Adenoidectomy, Pacemaker, Tonsillectomy Additional Past Surgical History / Comment(s): Biopsy of abdominal organs and mass rt side of neck removed when dx. with Lymphoma, partial spleenectomy. Colonoscopy. MIA. Mechanical valve Past Anesthesia/Blood Transfusion Reactions: Motion Sickness Additional Past Anesthesia/Blood Transfusion Reaction / Comment(s): no blood transfusions Type of Cardiac Device: Permanent Pacemaker Device Placement Date:: 08/20/22 Past Psychological History: Anxiety Smoking Status: Former smoker Past Alcohol Use History: None Reported Past Drug Use History: None Reported - Past Family History Mother Family Medical History: No Reported History Additional Family Medical History / Comment(s): Mother of chf at the age of 84 yrs. Sister(s) Family Medical History: Cancer Additional Family Medical History / Comment(s): mult myeloma Father Family Medical History: No Reported History Additional Family Medical History / Comment(s): Father was healthy and lived to be 96 yrs old. Medications and Allergies Home Medications Medication Instructions Recorded Confirmed Type Ezetimibe [Zetia] 10 mg PO DAILY 05/04/19 10/20/22 History Fexofenadine HCl 180 mg PO DAILY PRN 05/04/19 10/20/22 History Levothyroxine Sodium [Synthroid] 50 mcg PO DAILY 05/04/19 10/20/22 History Metoprolol Tartrate [Lopressor] 25 mg PO BID 05/04/19 10/20/22 History Omeprazole 20 mg PO DAILY 05/04/19 10/20/22 History Ascorbic Acid [Vitamin C] 1,000 mg PO DAILY #28 tab 03/05/20 10/20/22 Rx Zinc Sulfate [Orazinc] 220 mg PO DAILY #14 cap 03/05/20 10/20/22 Rx Empagliflozin [Jardiance] 25 mg PO DAILY 06/11/22 10/20/22 History Cholecalciferol (Vitamin D3) 75 mcg PO DAILY 10/20/22 10/20/22 History [Vitamin D3 (3000 Iu)] Ondansetron [Zofran] 4 mg PO TID PRN 10/20/22 10/20/22 History Warfarin [Coumadin] 5 mg PO Q2D@1830 10/20/22 10/20/22 History Warfarin [Coumadin] 7.5 mg PO Q2D@1830 10/20/22 10/20/22 History polyethylene glycoL 3350 [Miralax] 17 gm PO DAILY PRN 10/20/22 10/20/22 History Allergies Allergy/AdvReac Type Severity Reaction Status Date / Time No Known Allergies Allergy Verified 10/20/22 15:02 Physical Examination - Vital Signs Vital Signs: Vital Signs Temp Pulse Pulse Resp BP BP Pulse Ox 10/21/22 08:48 97.7 F 98 17 119/75 98 10/21/22 04:00 97.7 F 91 16 103/68 96 10/20/22 23:48 98 F 99 16 100/67 98 10/20/22 20:22 98.3 F 107 H 14 118/79 97 10/20/22 19:25 105 H 18 134/95 97 10/20/22 17:15 105 H 20 125/82 97 10/20/22 15:40 105 H 20 121/83 96 10/20/22 14:38 102 H 20 133/82 98 10/20/22 13:00 104 H 16 133/86 98 10/20/22 12:34 100 20 107/78 97 10/20/22 12:19 110 H 20 130/68 98 10/20/22 12:06 97.5 F L 103 H 20 127/78 99 Intake and Output 10/20/22 10/21/22 10/21/22 22:59 06:59 14:59 Intake Total 500 Balance 500 Intake: Oral 500 Other: Voiding Method Toilet Toilet Toilet # Bowel Movements 0 Weight 84.7 kg Patient is a late middle aged male, in no acute distress. Patient is alert awake oriented to time place and person. Speech and language functions are normal. Patient can name and repeat very well. No aphasia or dysarthria. Attention, concentration and fund of knowledge is adequate. On cranial nerve examination, pupils are equal, round and reacting to light, visual valencia are full on confrontation, with no neglect on double simultaneous stimulation. Extraocular muscles are intact with no nystagmus. Face is sym metric, tongue protrudes to the midline. Palatal elevation and sensation normal, hearing and shoulder shrug normal, facial sensation normal. On muscle strength testing, there is no pronator drift and the strength is normal in arms and legs distally and proximally. Deep tendon reflexes are (right/left) biceps 1+/1, brachioradialis 1+/1, knees 2+3/2+3, ankles 2/2 and plantar is withdrawal on the right, but down on the left. Sensory to touch is equal with no neglect on double simultaneous stimulation. Cerebellar function showed no ataxia for [id number] testing. No dysdiadochokinesia. No ataxia for [id number] testing on either side. Tone and bulk of muscles normal. Gait deferred.. On general examination, there is no carotid bruit or murmur, S1-S2 audible. Chest is clear on consultation. Abdomen is soft nontender. No organomegaly, bowel sounds present. Peripheral pulses are present. No edema. Results - Laboratory Findings CBC and BMP: 10/20/22 12:19 10/20/22 12:19 Abnormal Lab Findings: Abnormal Labs 10/20/22 10/20/22 10/20/22 12:19 12:19 12:19 RDW 16.2 H PT 41.6 H INR 4.2 H APTT 33.2 H Creatinine 0.61 L Total Protein 8.8 H 10/21/22 08:51 RDW PT 31.4 H INR 3.2 H APTT Creatinine Total Protein Assessment and Plan Assessment: * Acute onset of paresthesias involving upper extremities left > right, including torso, about one hour after undergoing chiropractic manipulation. Most of the symptoms have resolved, but persistent numbness of the left arm. Exact cause remains uncertain. Rule out stroke/TIA versus peripheral nerve process. Patient denies any neck pain or radicular symptoms at all. No evidence of carotid or vertebral dissection noted on the CTA. * History of aortic and mitral valve replacement 08/11/2022 * Status post pacemaker 08/21/2022 * Hypertension * Hyperlipidemia * X tobacco use Plan: * MRI of the brain and cervical spine were considered, but cannot be performed because patient has a pacemaker. * Check CT scan neck to rule out large disc. * 2-D echo with bubble study to rule out PFO * CTA head and neck showed: No evidence of dissection of the cervical internal carotid arteries or vertebral arteries. There is report of approximately 50% stenosis at the carotid bifurcation bilaterally due to calcified/noncalcified plaquing. No evidence of intracranial high-grade stenosis or intracranial aneurysm. * Fasting a.m. lipid panel * Hemoglobin A1c * B12, folate * Optimize control of blood pressure. * Close neuro checks. * Continue Coumadin. INR therapeutic 3.2. * Suggest adding aspirin 81 mg daily for 30 days in case patient had some injury to the cerebrovascular system from chiropractic manipulation. * Recommend no further neck adjustment/manipulation by chiropractor in the future. * Telemetry monitoring rule out any arrhythmia * DVT prophylaxis: Patient on Coumadin. * Patient will be clear for discharge, pending above test results. * Neurology will continue ot follow. Thank you for the consult.
[2022-10-21] MEDS: ASPIRIN 81 MG PO SCH (16:36)
[2022-10-21 16:55] LABS: Chol/HDL Ratio 5.28 Ratio
--- NOTE | 2022-10-21 18:20 | P.PN ---
Progress Note - Text Progress Note Date: 10/21/22 Chief Complaint: Left-sided numbness This is a pleasant 62-year-old patient who follows with Dr. Barajas. 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 Chronic stable medical conditions include GERD, hyperlipidemia, hypertension, osteoarthritis, permanent pacemaker, hypothyroid, obstructive sleep apnea does not use CPAP, gout, anxiety. In the past has had treatment for Hodgkin's with radiation treatment. Recently patient at [facility], received mechanical mitral aortic valve re placed. On Coumadin for the same. Following that patient did have epistaxis followed by Dr. Caldwell. Also diagnosed with chronic sinusitis. That is currently under control. Patient today for a long time and to see the chiropractor. Had some neck manipulation done for some neck discomfort. This was around 11:00. Soon after patient noticed that his left side during the left arm and torso shoulder felt numb. Patient did feel lightheaded also had some nausea. No change in speech. No headache no change in vision. Came to the ER. Computed tomography scan of the brain and CT angiogram of both unremarkable. INR therapeutic. No further intervention was done. October 21: Patient continues to feel a bit funny in the left arm. Aspirin added by neurology. Computed tomography scan of cervical spine has been ordered. Given the recent significant epistaxis did discuss with the patient of possible risk of bleeding again and the pros and cons of the underlying diagnosis. Patient understands the same. Active Medications Acetaminophen (Acetaminophen Tab 500 Mg Tab) 500 mg PO Q6HR PRN PRN Reason: Fever and/ or Pain Last Admin: 10/21/22 17:22 Dose: 500 mg Ascorbic Acid (Ascorbic Acid 500 Mg Tab) 1,000 mg PO DAILY [facility] Last Admin: 10/21/22 08:50 Dose: 1,000 mg Aspirin (Aspirin 81 Mg) 81 mg PO DAILY [facility] Stop: 11/20/22 14:46 Last Admin: 10/21/22 16:36 Dose: 81 mg Cholecalciferol (Cholecalciferol 25 Mcg (1000 Iu) Tablet) 75 mcg PO DAILY [facility] Last Admin: 10/21/22 08:52 Dose: 75 mcg Dapagliflozin (Dapagliflozin Propanediol 10 Mg Tablet) 10 mg PO DAILY [facility] Last Admin: 10/21/22 08:51 Dose: 10 mg Ezetimibe (Ezetimibe 10 Mg Tab) 10 mg PO DAILY [facility] Last Admin: 10/21/22 08:49 Dose: 10 mg Levothyroxine Sodium (Levothyroxine 50 Mcg Tab) 50 mcg PO DAILY@0630 [facility] Last Admin: 10/21/22 06:23 Dose: 50 mcg Loratadine (Loratadine 10 Mg Tab) 10 mg PO DAILY PRN PRN Reason: Allergy Symptoms Last Admin: 10/21/22 08:50 Dose: 10 mg Metoprolol Tartrate (Metoprolol Tartrate 25 Mg Tab) 25 mg PO BID [facility] Last Admin: 10/21/22 08:51 Dose: 25 mg Miscellaneous Information (Warfarin Per Pharmacy) 1 each MISCELLANE DIRECTED PRN; Protocol PRN Reason: Per Protocol Ondansetron HCl (Ondansetron 4 Mg Tab) 4 mg PO TID PRN PRN Reason: Nausea Pantoprazole Sodium (Pantoprazole 40 Mg Tablet) 40 mg PO AC-BRKFST [facility] Last Admin: 10/21/22 06:23 Dose: 40 mg Polyethylene Glycol (Polyethylene Glycol 3350 17 Gm Powd.Pack) 17 gm PO DAILY PRN PRN Reason: Constipation Warfarin Sodium (Warfarin 5 Mg Tab) 5 mg PO Q2D@1830 [facility]; Protocol Warfarin Sodium (Warfarin 7.5 Mg Tab) 7.5 mg PO Q2D@1830 [facility]; Protocol Last Admin: 10/21/22 17:21 Dose: 7.5 mg Past medical history to include: GERD, hyperlipidemia, hypertension, osteoarthritis, obstructive sleep apnea does not use CPAP, hypothyroid, gout, anxiety, Hodgkin's treated with radiation treatment several years ago, mechanical aortic and mitral valve at [facility] 2022, chronic sinusitis 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 . Ex-smoker. No alcohol. Physical examination: VITAL SIGNS: 97.7, 91, 18, 104/52, 96% room air GENERAL: Sitting up in a chair, appears comfortable EYES: Pupils equal. Conjunctiva normal. HEENT: External appearance of nose and ears normal, oral cavity grossly normal. NECK: JVD not raised; masses not palpable. HEART: First and second heart sounds are normal; no edema. LUNGS: Respiratory rate normal; clear to auscultation. ABDOMEN: Soft, nontender, liver spleen not palpable, no masses palpable. PSYCH: Alert and oriented x3; mood and affect normal. MUSCULOSKELETAL:No Clubbing/cyanosis;muscles-grossly intact NEUROLOGICAL: [Cranial nerves grossly intact; no facial asymmetry, possible part of the left arm 4/5. Slight decrease altered sensation of the left arm. INVESTIGATIONS, reviewed in the clinical context: October 21: INR 3.2 LDL 140 White count 19 hemoglobin 13.3 platelets 245 sodium 142 potassium 4.4 BUN [address] brain: Unremarkable CT angiography.: Unremarkable EKG tracing personally reviewed by me-ventricular pacemaker Chest x-ray film personally reviewed by me-cardiomegaly Assessment and plan: -Patient today had a neck manipulation the chiropractor about 11 PM. Shortly after patient had an episode of feeling weak in the left arm, left shoulder left torso accompanied by nausea and dizziness. This could be. Radiculopathy from neck manipulation. Central cause needs to be ruled out. Computed tomography scan cervical spine. Follow with neurology. Aspirin added by neurology. -GERD Omeprazole -Hyperlipidemia Zetia 10 mg a day -Essential hypertension Lopressor 25 mg twice a day -Diabetes mellitus type 2 jardiance -Primary osteoarthritis -Hypothyroid Synthroid 50 g -Mechanical aortic and mitral valve recently done at [facility] -Coumadin monitoring Discussed with patient. Follow with Dr. Welsh neurology.
[2022-10-21] MEDS ORDERED: WARFARIN 7.5 MG TAB PO SCH (18:30)
--- NOTE | 2022-10-21 18:52 | CT ---
EXAMINATION TYPE: CT cervical spine wo con DATE OF EXAM: 10/21/2022 COMPARISON: None HISTORY: 62-year-old male Paresthesias b/l arms, left worse after adult caregiver TECHNIQUE: Contiguous axial scanning of the cervical spine without IV contrast. Coronal and sagittal reconstructions performed. CT DLP: 397 mGycm Automated exposure control for dose reduction was used. FINDINGS: Power Barker image shows left anterior chest wall pacemaker generator with right atrial, right ventricular, and coronary sinus leads. Prosthetic cardiac valve with median sternotomy wires. Prominent biapical pleural-parenchymal scarring. Ectatic upper descending thoracic aorta at 3.3 cm. No craniocervical junction anomaly, predental space widening, or prevertebral soft tissue swelling. There is anterior bridging endplate spondylosis T2-T5 levels. No acute fracture or malalignment is seen. There appears to be a small posterior disc protrusion at C6-C7 without significant spinal canal steno sis. Assessment of the spinal canal below this level is limited due to artifact from patient's should ers. Facet arthropathy of the cervical spine and some uncovertebral joint arthropathy lower cervical spine . At C2-C3, changes result in mild bilateral neural foraminal stenosis. Otherwise, no significant neura l foraminal stenosis by CT. IMPRESSION: 1. SMALL POSTERIOR DISC PROTRUSION AT C6/C7 WITHOUT SIGNIFICANT SPINAL CANAL STENOSIS. ASSESSMENT OF THE SPINAL CANAL BELOW THIS LEVEL IS LIMITED DUE TO ARTIFACT FROM THE PATIENT'S SHOULDERS. 2. SOME FACET ARTHROPATHY UPPER CERVICAL SPINE AND UNCOVERTEBRAL JOINT ARTHROPATHY IN THE LOWER CERVI KAREY SPINE. CHANGES RESULT IN MILD BILATERAL NEUROFORAMINAL STENOSES AT C2-C3. OTHERWISE, NO SIGNIFICA NT FORAMINAL STENOSIS SEEN BY CT.
[2022-10-21 19:59] VITALS: RESP 16
[2022-10-21] MEDS ORDERED: ZOLPIDEM 5 MG TAB PO SCH (22:15)
[2022-10-22 03:42] VITALS: TEMP 97.4
[2022-10-22] MEDS: LEVOTHYROXINE 50 MCG TAB PO SCH (06:19)
[2022-10-22] MEDS: PANTOPRAZOLE 40 MG TABLET PO SCH (06:19)
[2022-10-22 07:41] LABS: INR 3.1 (<1.2); Prothrombin Time 29.8 sec (9.0-12.0)
[2022-10-22] MEDS: CHOLECALCIFEROL 25 MCG (1000 IU) TABLET PO SCH (09:43)
[2022-10-22] MEDS: EZETIMIBE 10 MG TAB PO SCH (09:43)
[2022-10-22] MEDS: METOPROLOL TARTRATE 25 MG TAB PO SCH (09:43)
[2022-10-22] MEDS: DAPAGLIFLOZIN PROPANEDIOL 10 MG TABLET PO SCH (09:43)
[2022-10-22] MEDS: ASPIRIN 81 MG PO SCH (09:43)
[2022-10-22] MEDS: ASCORBIC ACID 500 MG TAB PO SCH (09:43)
[2022-10-22] MEDS: LORATADINE 10 MG TAB PO PRN (10:19)
--- NOTE | 2022-10-22 10:57 | CA ---
Transthoracic Echo Report Name: Alvino Paredes Age: 62 Gender: M : 1960 Exam Date: 10/22/2022 08:14 Exam Location: [facility] Ht (in): 71 Wt (lb): 186 Ordering Physician: Yosi Castillo MD Attending/Referring Phys: [employer] Mechanic Stepan Banegas Procedure CPT: Indications: tia Cardiac Hx: Technical Quality: Fair Contrast 1: Agitated Saline Total Dose (mL): 20 Contrast 2: Total Dose (mL): MEASUREMENTS (Male / Female) Normal Values 2D ECHO LV Diastolic Diameter PLAX 4.6 cm 4.2 - 5.9 / 3.9 - 5.3 cm LV Systolic Diameter PLAX 3.4 cm IVS Diastolic Thickness 1.0 cm 0.6 - 1.0 / 0.6 - 0.9 cm LVPW Diastolic Thickness 1.1 cm 0.6 - 1.0 / 0.6 - 0.9 cm LV Relative Wall Thickness 0.4 RV Internal Dim ED PLAX 2.3 cm LVOT Diameter 2.0 cm Aortic Root Diameter 2.7 cm LA Systolic Diameter LX 2.8 cm 3.0 - 4.0 / 2.7 - 3.8 cm LV Diastolic Volume MOD BP 64.2 cm??? 67 - 155 / 56 - 104 cm??? LV Systolic Volume MOD BP 32.0 cm??? 22 - 58 / 19 - 49 cm??? LV Ejection Fraction MOD BP 50.2 % >= 55 % LV Diastolic Volume MOD 4C 90.8 cm??? LV Systolic Volume MOD 4C 51.4 cm??? LV Ejection Fraction MOD 4C 43.4 % LV Diastolic Length 4C 7.8 cm LV Systolic Length 4C 7.2 cm LV Diastolic Volume MOD 2C 43.4 cm??? LV Systolic Volume MOD 2C 18.1 cm??? LV Ejection Fraction MOD 2C 58.3 % LV Diastolic Length 2C 7.5 cm LV Systolic Length 2C 6.5 cm LA Volume 46.9 cm??? 18 - 58 / 22 - 52 cm??? Ascending Aorta Diameter 3.0 cm DOPPLER AV Peak Velocity 143.3 cm/s AV Peak Gradient 8.2 mmHg LVOT Peak Velocity 103.6 cm/s LVOT Peak Gradient 4.3 mmHg AV Area Cont Eq pk 2.2 cm??? TR Peak Velocity 193.3 cm/s TR Peak Gradient 14.9 mmHg Right Ventricular Systolic Press 20.1 mmHg PV Peak Velocity 98.2 cm/s PV Peak Gradient 3.9 mmHg FINDINGS Left Ventricle Mildly decreased left ventricular ejection fraction. Normal LV size and wall thickness.left ventricular ejection fraction is estimated at 30-35 %. Right Ventricle Normal right ventricular size. Right Atrium Normal right atrial size. Left Atrium Normal left atrial size. Mitral Valve MV prosthesis. Mitral valve not well visualized. Aortic Valve AV prosthesis. Aortic valve not well visualized. Tricuspid Valve Structurally normal tricuspid valve. Mid TR. Pulmonic Valve Pulmonic valve not well visualized. No pulmonic regurgitation. Pericardium Normal pericardium. Aorta Normal size aortic root and proximal ascending aorta. CONCLUSIONS Moderate LV systolic dysfunction with an ejection fraction of 35% Atypical septal motion There is a mechanical prosthesis and mitral and aortic positions that are not very well visualized Recommend transesophageal echo for further evaluation Inconclusive bubble study Previewed by: Dr. Lavelle Medina MD (Electronically Signed) Final Date: 22 October 2022 10:57
[2022-10-22 10:58] VITALS: BP 113/82; PULSE 108
--- NOTE | 2022-10-22 13:09 | P.CRDCN ---
History of Present Illness Consult date: 10/22/22 History of present illness: History of Present Illness: The patient is a 62-year-old male with a known history of recent mitral and aortic valve replacement with mechanical valve done at the [facility] in August, permanent pacemaker implantation post surgery who presented was feeling of numbness and numbness in the left arm, he did not have any palpitations or chest discomfort. He has underwent neck manipulation by his chiropractor shortly before. He did not have any chest discomfort, palpitations or peripheral edema. He has a known history of ostial small RCA disease that is treated medically. On presentation he was in sinus mechanism with no evidence of permanent pacemaker malfunction. He's feeling stronger overall, getting more active physically and scheduled to start cardiac rehab soon. He had an echocardiogram that was technically difficult and showed an ejection fraction of 30-35%. His most recent ejection fraction prior to surgery was 45-50 and post operatively was moderately impaired. His INR was elevated at 4.2 on presentation. He un derwent CT angiogram that showed no evidence of high-grade carotid stenosis and there was no evidence of bleed on his computed tomography scan. He has a history of hypertension, hyperlipidemia and diabetes. Medications: Coumadin, Synthroid, Jardiance, metoprolol 25 mg twice a day,Ezetimibe 10 mg daily. He is not on a statin because of prior elevation of the liver function test post operatively Review of Systems: Respiratory: He has mild dyspnea on exertion, improving GI: No nausea or vomiting . No history of peptic ulcer disease. No recent GI bleed. : No hematuria or dysuria. Nervous System: No stroke or seizure. Physical Examination: 62-year-old male, alert and oriented no apparent distress,Blood pressure 113/80, Heart rate 80 Head: Normocephalic. Eyes: Sclerae nonicteric. Neck: Good carotid upstroke, no bruit, no jugular venous distention. Lungs: Clear to auscultation. Heart: Regular rate and rhythm, prosthetic S1-S2, no S3, no rub. Systolic ejection murmur. Abdomen: Soft nontender, positive bowel sounds no organomegaly. Extremities: No edema, intact distal pulses. Labs: Potassium 4.4, BUN 20, creatinine 0.61, AST 35, ALT 21, cholesterol 226, LDL 140. INR 4.2, today 3.1 EKG: Sinus mechanism with evidence of ventricular pacing and rare PVCs Impression: 1. Left arm numbness appears to be musculoskeletal related to cervical radiculopathy 2. Status post aortic and mitral valve prosthetic replacement 3. Nonischemic cardiomyopathy 4. Hyperlipidemia 5. History of diabetes Plan: 1. Continue present therapy 2. If blood pressure is stable as outpatient add Entresto 3. Start statin as an outpatient 4. Follow ventricle systolic function as an outpatient 5. Continue Coumadin Thank you for this consult we will follow with you Past Medical History Past Medical History: Cancer, GERD/Reflux, Hyperlipidemia, Hypertension, Osteoarthritis (OA), Skin Disorder, Sleep Apnea/CPAP/BIPAP, Thyroid Disorder Additional Past Medical History / Comment(s): dx Hodgkins Lymphoma at age 24-tx radiation therapy. "chest discomfort/tightness", one heart valve "does not close all the way", little light headed and SOB with exertion at times. no cpap used, occ. gout, eczema,. see chiropractor for back and neck. recent URI infection treated with steroids History of Any Multi-Drug Resistant Organisms: None Reported Past Surgical History: Adenoidectomy, Pacemaker, Tonsillectomy Additional Past Surgical History / Comment(s): Biopsy of abdominal organs and mass rt side of neck removed when dx. with Lymphoma, partial spleenectomy. [place] noscopy. MIA. Mechanical valve Past Anesthesia/Blood Transfusion Reactions: Motion Sickness Additional Past Anesthesia/Blood Transfusion Reaction / Comment(s): no blood transfusions Type of Cardiac Device: Permanent Pacemaker Device Placement Date:: 08/20/22 Past Psychological History: Anxiety Smoking Status: Former smoker Past Alcohol Use History: None Reported Past Drug Use History: None Reported - Past Family History Mother Family Medical History: No Reported History Additional Family Medical History / Comment(s): Mother of chf at the age of 84 yrs. Sister(s) Family Medical History: Cancer Additional Family Medical History / Comment(s): mult myeloma Father Family Medical History: No Reported History Additional Family Medical History / Comment(s): Father was healthy and lived to be 96 yrs old. Medications and Allergies Home Medications Medication Instructions Recorded Confirmed Type Ezetimibe [Zetia] 10 mg PO DAILY 05/04/19 10/20/22 History Fexofenadine HCl 180 mg PO DAILY PRN 05/04/19 10/20/22 History Levothyroxine Sodium [Synthroid] 50 mcg PO DAILY 05/04/19 10/20/22 History Metoprolol Tartrate [Lopressor] 25 mg PO BID 05/04/19 10/20/22 History Omeprazole 20 mg PO DAILY 05/04/19 10/20/22 History Ascorbic Acid [Vitamin C] 1,000 mg PO DAILY #28 tab 03/05/20 10/20/22 Rx Zinc Sulfate [Orazinc] 220 mg PO DAILY #14 cap 03/05/20 10/20/22 Rx Empagliflozin [Jardiance] 25 mg PO DAILY 06/11/22 10/20/22 History Cholecalciferol (Vitamin D3) 75 mcg PO DAILY 10/20/22 10/20/22 History [Vitamin D3 (3000 Iu)] Ondansetron [Zofran] 4 mg PO TID PRN 10/20/22 10/20/22 History Warfarin [Coumadin] 5 mg PO Q2D@1830 10/20/22 10/20/22 History Warfarin [Coumadin] 7.5 mg PO Q2D@1830 10/20/22 10/20/22 History polyethylene glycoL 3350 [Miralax] 17 gm PO DAILY PRN 10/20/22 10/20/22 History Loratadine [Claritin] 10 mg PO 10/22/22 History Allergies Allergy/AdvReac Type Severity Reaction Status Date / Time No Known Allergies Allergy Verified 10/20/22 15:02 Physical Exam Vitals: Vital Signs Temp Pulse Resp BP BP Pulse Ox 10/22/22 08:00 108 H 16 113/82 96 10/22/22 03:41 97.4 F L 90 16 111/72 98 10/21/22 23:34 97.5 F L 96 16 95/60 98 10/21/22 19:57 97.8 F 104 H 16 99/67 97 10/21/22 16:39 74 L 10/21/22 15:02 91 18 104/52 100/50 96 Intake and Output 10/21/22 10/22/22 10/22/22 22:59 06:59 14:59 Intake Total 120 118 Balance 120 118 Intake: Oral 120 118 Other: Voiding Method Toilet Toilet Toilet # Voids 1 # Bowel Movements 0 Results 10/20/22 12:19 10/20/22 12:19 Coagulation 10/22/22 Range/Units 06:40 PT 29.8 H (9.0-12.0) sec Lipids 10/21/22 Range/Units 08:51 Triglycerides 216.00 H (0.00-149.00) mg/dL Cholesterol 226.00 H (0.00-200.00) mg/dL HDL Cholesterol 42.80 (40.00-60.00) mg/dL Cholesterol/HDL Ratio 5.28 Ratio Current Medications Generic Name Dose Route Start Last Admin Trade Name Freq PRN Reason Stop Dose Admin Acetaminophen 500 mg 10/20/22 21:19 10/21/22 17:22 Acetaminophen Tab 500 Mg Tab PO 500 mg Q6HR PRN Administration Fever and/ or Pain Ascorbic Acid 1,000 mg 10/21/22 09:00 10/22/22 09:43 Ascorbic Acid 500 Mg Tab PO 1,000 mg DAILY JAUN Administration Aspirin 81 mg 10/21/22 14:45 10/22/22 09:43 Aspirin 81 Mg PO 11/20/22 14:46 81 mg DAILY JAUN Administration Cholecalciferol 75 mcg 10/21/22 09:00 10/22/22 09:43 Cholecalciferol 25 Mcg (1000 Iu) Tablet PO 75 mcg DAILY JAUN Administration Dapagliflozin 10 mg 10/21/22 09:00 10/22/22 09:43 Dapagliflozin Propanediol 10 Mg Tablet PO 10 mg DAILY JAUN Administration Ezetimibe 10 mg 10/21/22 09:00 10/22/22 09:43 Ezetimibe 10 Mg Tab PO 10 mg DAILY JAUN Administration Levothyroxine Sodium 50 mcg 10/21/22 06:30 10/22/22 06:19 Levothyroxine 50 Mcg Tab PO 50 mcg DAILY@0630 JAUN Administration Loratadine 10 mg 10/20/22 18:23 10/22/22 10:19 Loratadine 10 Mg Tab PO 10 mg DAILY PRN Administration Allergy Symptoms Metoprolol Tartrate 25 mg 10/20/22 21:00 10/22/22 09:43 Metoprolol Tartrate 25 Mg Tab PO 25 mg BID JAUN Administration Miscellaneous Information 1 each 10/20/22 18:25 Warfarin Per Pharmacy MISCELLANE DIRECTED PRN Per Protocol Protocol Ondansetron HCl 4 mg 10/20/22 18:23 Ondansetron 4 Mg Tab PO TID PRN Nausea Pantoprazole Sodium 40 mg 10/21/22 07:30 10/22/22 06:19 Pantoprazole 40 Mg Tablet PO 40 mg [id number] [facility] Administration Polyethylene Glycol 17 gm 10/20/22 18:23 Polyethylene Glycol 3350 17 Gm Powd.Pack PO DAILY PRN Constipation Warfarin Sodium 5 mg 10/22/22 18:30 Warfarin 5 Mg Tab PO Q2D@1830 [facility] Protocol Warfarin Sodium 7.5 mg 10/21/22 18:30 10/21/22 17:21 Warfarin 7.5 Mg Tab PO 7.5 mg Q2D@1830 [facility] Administration Protocol Zolpidem Tartrate 5 mg 10/21/22 22:15 10/21/22 22:09 Zolpidem 5 Mg Tab PO 5 mg HS [facility] Administration Intake and Output 10/21/22 10/22/22 10/22/22 22:59 06:59 14:59 Intake Total 120 118 Balance 120 118 Intake: Oral 120 118 Other: Voiding Method Toilet Toilet Toilet # Voids 1 # Bowel Movements 0 10/20/22 12:19 10/20/22 12:19
[2022-10-22] MEDS ORDERED: WARFARIN 5 MG TAB PO SCH (18:30)
--- NOTE | 2022-10-22 22:05 | P.DS ---
Providers Date of admission: 10/20/22 14:15 Expected date of discharge: 10/22/22 Attending physician: Sonny Petersen Consults: 10/20/22 14:02 Consult Physician Urgent Consulting Provider: Yosi Castillo Consult Reason/Comments: left arm numbness, possible tia Do you want consulting provider notified?: Yes 10/21/22 15:06 Consult Physician Routine Consulting Provider: Serg Casper Consult Reason/Comments: mechanical valve Do you want consulting provider notified?: Yes, Notify in am Primary care physician: [facility] Course: Chief Complaint: Left-sided numbness This is a pleasant 62-year-old patient who follows with Dr. Barajas. Line Builder Dr. Casper. Chronic stable medical conditions include GERD, hyperlipidemia, hypertension, osteoarthritis, permanent pacemaker, hypothyroid, obstructive sleep apnea does not use CPAP, gout, anxiety. In the past has had treatment for Hodgkin's with radiation treatment. Recently patient at [facility], received mechanical mitral aortic valve replaced. On Coumadin for the same. Following that patient did have epistaxis followed by Dr. Caldwell. Also diagnosed with chronic sinusitis. That is currently under control. Patient today for a long time and to see the chiropractor. Had some neck manipulation done for some neck discomfort. This was around 11:00. Soon after patient noticed that his left side during the left arm and torso shoulder felt numb. Patient did feel lightheaded also had some nausea. No change in speech. No headache no change in vision. Came to the ER. Computed tomography scan of the brain and CT angiogram of both unremarkable. INR therapeutic. No further intervention was done. October 21: Patient continues to feel a bit funny in the left arm. Aspirin added by neurology. Computed tomography scan of cervical spine has been ordered. Given the recent significant epistaxis did discuss with the patient of possible risk of bleeding again and the pros and cons of the underlying diagnosis. Patient understands the same. October 22: Feeling better. CT cervical spine showed small posterior disc protrusion at C6-C7. Without any significant spinal canal stenosis. Velva to be possibly responsible for his symptoms following manipulation of the neck with a chiropractor. Discussed with Dr. Welsh from neurology. Aspirin will be discontinued. Discussed with Dr. Casper. Patient be discharged. 2-D echo showed EF of 30-35%. Aldactone will be considered as outpatient. Discussed with patient and . 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 . Ex-smoker. No alcohol. Physical examination: VITAL SIGNS: 97.7, 91, 18, 104/52, 96% room air GENERAL: Sitting up in a chair, appears comfortable EYES: Pupils equal. Conjunctiva normal. HEENT: External appearance of nose and ears normal, oral cavity grossly normal. NECK: JVD not raised; masses not palpable. HEART: First and second heart sounds are normal; no edema. LUNGS: Respiratory rate normal; clear to auscultation. ABDOMEN: Soft, nontender, liver spleen not palpable, no masses palpable. PSYCH: Alert and oriented x3; mood and affect normal. MUSCULOSKELETAL:No Clubbing/cyanosis;muscles-grossly intact NEUROLOGICAL: [Cranial nerves grossly intact; no facial asymmetry, possible part of the left arm 4/5. Slight decrease altered sensation of the left arm. INVESTIGATIONS, reviewed in the clinical context: 2-D echocardiogram: EF 30-35% CT cervical spine: Small posterior disc protrusion at C6-C7 without significant spinal CANAL stenosis. October 21: INR 3.2 LDL 140 White count 19 hemoglobin 13.3 platelets 245 sodium 142 potassium 4.4 BUN [address] brain: Unremarkable CT angiography.: Unremarkable EKG tracing personally reviewed by me-ventricular pacemaker Chest x-ray film personally reviewed by me-cardiomegaly Assessment and plan: -Radiculopathy due to cervical spine manipulation from small protrusion disc at C6-C7. Computed tomography scan cervical spine. Follow with neurology. Aspirin discontinued. -GERD Omeprazole -Hyperlipidemia Zetia 10 mg a day -Essential hypertension Lopressor 25 mg twice a day -Diabetes mellitus type 2 jardiance -Primary osteoarthritis -Chronic congestive heart failure from systolic dysfunction EF 30-35%. Likely secondary to previous valvular abnormality Discussed with Dr. Casper. He will follow outpatient -Hypothyroid Synthroid 50 g -Mechanical aortic and mitral valve recently done at [facility] -Coumadin monitoring Disposition: Home Plan - Discharge Summary New Discharge Prescriptions: Continue Levothyroxine Sodium [Synthroid] 50 mcg PO DAILY Fexofenadine HCl 180 mg PO DAILY PRN PRN Reason: Allergy Symptoms Metoprolol Tartrate [Lopressor] 25 mg PO BID Ezetimibe [Zetia] 10 mg PO DAILY Omeprazole 20 mg PO DAILY Zinc Sulfate [Orazinc] 220 mg PO DAILY #14 cap Ascorbic Acid [Vitamin C] 1,000 mg PO DAILY #28 tab Empagliflozin [Jardiance] 25 mg PO DAILY Cholecalciferol (Vitamin D3) [Vitamin D3 (3000 Iu)] 75 mcg PO DAILY Warfarin [Coumadin] 7.5 mg PO Q2D@1830 Ondansetron [Zofran] 4 mg PO TID PRN PRN Reason: Nausea Loratadine [Claritin] 10 mg PO Warfarin [Coumadin] 5 mg PO Q2D@1829 polyethylene glycoL 3350 [Miralax] 17 gm PO DAILY PRN PRN Reason: Constipation Discharge Medication List Ezetimibe [Zetia] 10 mg PO DAILY 05/04/19 [History] Fexofenadine HCl 180 mg PO DAILY PRN 05/04/19 [History] Levothyroxine Sodium [Synthroid] 50 mcg PO DAILY 05/04/19 [History] Metoprolol Tartrate [Lopressor] 25 mg PO BID 05/04/19 [History] Omeprazole 20 mg PO DAILY 05/04/19 [History] Ascorbic Acid [Vitamin C] 1,000 mg PO DAILY #28 tab 03/05/20 [Rx] Zinc Sulfate [Orazinc] 220 mg PO DAILY #14 cap 03/05/20 [Rx] Empagliflozin [Jardiance] 25 mg PO DAILY 06/11/22 [History] Cholecalciferol (Vitamin D3) [Vitamin D3 (3000 Iu)] 75 mcg PO DAILY 10/20/22 [History] Ondansetron [Zofran] 4 mg PO TID PRN 10/20/22 [History] Warfarin [Coumadin] 5 mg PO Q2D@182910/20/22 [History] Warfarin [Coumadin] 7.5 mg PO Q2D@0 10/20/22 [History] polyethylene glycoL 3350 [Miralax] 17 gm PO DAILY PRN 10/20/22 [History] Loratadine [Claritin] 10 mg PO 10/22/22 [History] Follow up Appointment(s)/Referral(s): Serg Casper MD [STAFF PHYSICIAN] - 10/27/22 10:30 am Lc Barajas DO [Primary Care Provider] - 1-2 days (Office will call you with follow up appointment date and time ) Discharge Disposition: HOME SELF-CARE
== END 2022-10-22 13:04 | disposition home or self-care (01) ==
LOC: EC 12:03 → 3SCARD 14:15 → INTOOBSV 14:15 → 3SCARD 18:38
PROVIDERS: ADMIT Hospitalist; ATTEND Hospitalist
DX: M50.123 Cervical disc disorder at C6-C7 level with radiculopathy (principal); F41.9 Anxiety disorder, unspecified; E78.5 Hyperlipidemia, unspecified; J43.8 Other emphysema; K21.9 Gastro-esophageal reflux disease without esophagitis; E03.9 Hypothyroidism, unspecified; M48.02 Spinal stenosis, cervical region; G47.33 Obstructive sleep apnea (adult) (pediatric); I11.0 Hypertensive heart disease with heart failure; I50.20 Unspecified systolic (congestive) heart failure; M10.9 Gout, unspecified; I42.8 Other cardiomyopathies; J32.9 Chronic sinusitis, unspecified; M50.223 Other cervical disc displacement at C6-C7 level; M47.814 Spondylosis without myelopathy or radiculopathy, thoracic region; Z79.899 Other long term (current) drug therapy; Z79.890 Hormone replacement therapy; Z79.84 Long term (current) use of oral hypoglycemic drugs; Z85.71 Personal history of Hodgkin lymphoma; Z92.3 Personal history of irradiation; Z95.0 Presence of cardiac pacemaker; Z90.81 Acquired absence of spleen; Z87.891 Personal history of nicotine dependence; Z82.49 Family history of ischemic heart disease and other diseases of the circulatory system; Z80.7 Family history of other malignant neoplasms of lymphoid, hematopoietic and related tissues; Z95.2 Presence of prosthetic heart valve; Z79.01 Long term (current) use of anticoagulants; Z79.82 Long term (current) use of aspirin
CPT/HCPCS: 99285; 36415; 94760; 93005; 93306; 97161; 97165; 80061; 80053; 82607; 82550; 82746; 84484; 85025; 85610 ×3; 85730; 83036; 71046; 72125; 70496; 70450; 70498; G0378 ×3; Q9967

== ENCOUNTER → 2023-07-24 | Outpatient (CLI) | payer BC ==
--- NOTE | 2023-07-24 14:15 | CT ---
EXAMINATION TYPE: CT chest w con DATE OF EXAM: 07/24/2023 COMPARISON: Report dated 08/07/2022 HISTORY: lung nodule CT DLP: 628 mGycm, Automated exposure control for dose reduction was used. CONTRAST: Performed injected with 100 mL of Isovue 300. TECHNIQUE: Axial images were obtained at 5 mm thick sections. Reconstructed images are reviewed on [facility] computer in the coronal plane. FINDINGS: Portion of the thyroid visualized is normal. There is a 1.6 cm area of spiculation posterior medial right lung apex. Series 4 image 9. There is a 0.5 cm nodular density anterior lateral right lung. Series 4 image 34. These were not specifically m entioned on prior report right No enlarged mediastinal or hilar adenopathy is evident. There may be a paraesophageal lymph node lauren suring 0.9 cm within the superior mediastinum, series 3 image 11 The ascending aorta diameter at the level of the main pulmonary artery is 3.1 cm. The main pulmonary artery diameter at the bifurcation is 3.0 cm. Previous aortic root dilatation not identified. Aortic root on this exam measures 3.[address] sections are obtained through the upper abdomen. Abdomen is essentially unremarkable. IMPRESSION: 1. Left medial apical mass. Small nodule right anterior lateral lung. PET CT could further evaluate t hese findings.
== END | disposition home or self-care (01) ==
LOC: RADCTMAIN 12:09
PROVIDERS: ATTEND Family Medicine
DX: R91.1 Solitary pulmonary nodule (principal); R91.8 Other nonspecific abnormal finding of lung field
CPT/HCPCS: 71260; Q9967

== ENCOUNTER 2023-08-06 14:21 | Observation (INO) | payer BC ==
[2023-08-06 15:00] LABS: Basophils # (A) 0.1 k/uL (0-0.2); Basophils % (A) 1 %; Eosinophils # (A) 0.1 k/uL (0-0.7); Eosinophils % (A) 2 %; HCT 45.1 % (39.0-53.0); HGB 14.8 gm/dL (13.0-17.5); Lymphocytes # (A) 1.8 k/uL (1.0-4.8); Lymphocytes % (A) 21 %; MCH 30.1 pg (25.0-35.0); MCHC 32.8 g/dL (31.0-37.0); MCV 91.6 fL (80.0-100.0); Mean Platelet Volume 9.3; Monocytes # (A) 0.8 k/uL (0-1.0); Monocytes % (A) 10 %; Neutrophils # (A) 5.6 k/uL (1.3-7.7); Neutrophils % (A) 64 %; Platelet Count 221 k/uL (150-450); RBC 4.93 m/uL (4.30-5.90); RDW 14.7 % (11.5-15.5); WBC 8.7 k/uL (3.8-10.6)
[2023-08-06 15:05] LABS: ALT 23 U/L (4-49); AST 35 U/L (17-59); African American GFR (CKD) >90 (>60 ml/min/1.73 sqM); Albumin 4.7 g/dL (3.5-5.0); Alkaline Phosphatase 81 U/L (38-126); Anion Gap 11 mmol/L; Blood Urea Nitrogen 28 mg/dL (9-20); Calcium 9.6 mg/dL (8.4-10.2); Carbon Dioxide 22 mmol/L (22-30); Chloride 106 mmol/L (98-107); Creatine Kinase 98 U/L (55-170); Glucose 102 mg/dL (74-99); Non-African American GFR(CKD) >90 (>60 ml/min/1.73 sqM); Potassium 4.3 mmol/L (3.5-5.1); Sodium 139 mmol/L (137-145); Total Bilirubin 1.4 mg/dL (0.2-1.3)
[2023-08-06 15:09] LABS: INR 3.1 (<1.2); Partial Thromboplastin Time 28.7 sec (22.0-30.0); Prothrombin Time 30.1 sec (10.0-12.5)
[2023-08-06] MEDS: SODIUM CHLORIDE 0.9% 1,000 ML IV STA (15:12)
--- NOTE | 2023-08-06 15:12 | ED ---
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 Patient also had multiple episodes of dizziness and near syncope with position changes last night while watching TV. Patient has no headache chest pain shortness breath or abdominal pain some slurred speech on arrival to the ER with confusion but those complaints are improving. No travel no sick contacts no recent change in medication patient has a pacemaker and defibrillator Location: speech, dysarthria History of same: No Place: home Severity: mild Quality: weak, numb, tingling, improving, other (Near syncopal) Improves With: time Context: sudden onset, other (Change in position) Associated Symptoms: confusion, diaphoresis, syncope (Patient folic he was going to pass out), weakness Treatments Prior to Arrival: none - Related Data Home Medications: Home Medications Medication Instructions Recorded Confirmed Ezetimibe [Zetia] 10 mg PO DAILY 05/04/19 08/06/23 Fexofenadine HCl 180 mg PO DAILY 05/04/19 08/06/23 Levothyroxine Sodium [Synthroid] 50 mcg PO DAILY 05/04/19 08/06/23 Metoprolol Tartrate [Lopressor] 25 mg PO BID 05/04/19 08/06/23 Omeprazole 20 mg PO DAILY 05/04/19 08/06/23 Empagliflozin [Jardiance] 25 mg PO DAILY 06/11/22 08/06/23 Warfarin [Coumadin] 2.5 mg PO TUTH@209910/20/22 08/06/23 Warfarin [Coumadin] 5 mg PO SUMOWEFRSA@209910/20/22 08/06/23 ALPRAZolam [Xanax] 0.5 mg PO BID PRN 08/06/23 08/06/23 Atorvastatin [Lipitor] 40 mg PO HS 08/06/23 08/06/23 Cholecalciferol (Vitamin D3) 50 mcg PO BID 08/06/23 08/06/23 [Vitamin D3 (50 Mcg = 2000 Iu)] Latanoprost [Latanoprost 0.005%] 1 drop BOTH EYES DAILY 08/06/23 08/06/23 Multivit-Mins/Iron/Folic/Lycop 1 tab PO DAILY 08/06/23 08/06/23 [Centrum Men's Tablet] Zinc Gluconate [Zinc] 50 mg PO HS 08/06/23 08/06/23 timoloL maleate [timoloL maleate 1 drop BOTH EYES HS 08/06/23 08/06/23 0.25%] Allergies/Adverse Reactions: Allergies Allergy/AdvReac Type Severity Reaction Status Date / Time No Known Allergies Allergy Verified 08/06/23 16:26 Review of Systems ROS Statement: Those systems with pertinent positive or pertinent negative responses have been documented in the HPI. ROS Other: All systems not noted in ROS Statement are negative. General Exam Limitations: no limitations General appearance: alert, in no apparent distress Head exam: Present: atraumatic, normocephalic, normal inspection Eye exam: Present: normal appearance, PERRL, EOMI. Absent: scleral icterus, conjunctival injection, periorbital swelling ENT exam: Present: normal exam, mucous membranes moist Neck exam: Present: normal inspection. Absent: tenderness, meningismus, lymphadenopathy Respiratory exam: Present: normal lung sounds bilaterally. Absent: respiratory distress, wheezes, rales, rhonchi, stridor Cardiovascular Exam: Present: regular rate, normal rhythm, normal heart sounds. Absent: systolic murmur, diastolic murmur, rubs, gallop, clicks GI/Abdominal exam: Present: soft, normal bowel sounds. Absent: distended, tenderness, guarding, rebound, rigid Extremities exam: Present: normal inspection, full ROM, normal capillary refill. Absent: tenderness, pedal edema, joint swelling, calf tenderness Back exam: Present: normal inspection Neurological exam: Present: alert, oriented X3, CN II-XII intact Psychiatric exam: Present: normal affect, normal mood Skin exam: Present: warm, dry, intact, normal color. Absent: rash Stroke MDM - Lab Data Result diagrams: 08/06/23 14:30 08/06/23 14:30 Lab Results 08/06/23 08/06/23 08/06/23 Range/Units 14:30 14:30 14:30 WBC 8.7 (3.8-10.6) k/uL RBC 4.93 (4.30-5.90) m/uL Hgb 14.8 (13.0-17.5) gm/dL Hct 45.1 (39.0-53.0) % MCV 91.6 (80.0-100.0) fL MCH 30.1 (25.0-35.0) pg MCHC 32.8 (31.0-37.0) g/dL RDW 14.7 (11.5-15.5) % Plt Count 221 (150-450) k/uL MPV 9.3 Neutrophils % 64 % Lymphocytes % 21 % Monocytes % 10 % Eosinophils % 2 % Basophils % 1 % Neutrophils # 5.6 (1.3-7.7) k/uL Lymphocytes # 1.8 (1.0-4.8) k/uL Monocytes # 0.8 (0-1.0) k/uL Eosinophils # 0.1 (0-0.7) k/uL Basophils # 0.1 (0-0.2) k/uL PT 30.1 H (10.0-12.5) sec INR 3.1 H (<1.2) APTT 28.7 (22.0-30.0) sec Sodium 139 (137-145) mmol/L Potassium 4.3 (3.5-5.1) mmol/L Chloride 106 (98-107) mmol/L Carbon Dioxide 22 (22-30) mmol/L Anion Gap 11 mmol/L BUN 28 H (9-20) mg/dL Creatinine 0.86 (0.66-1.25) mg/dL Est GFR (CKD-EPI)AfAm >90 (>60 ml/min/1.73 sqM) Est GFR (CKD-EPI)NonAf >90 (>60 ml/min/1.73 sqM) Glucose 102 H (74-99) mg/dL Calcium 9.6 (8.4-10.2) mg/dL Total Bilirubin 1.4 H (0.2-1.3) mg/dL AST 35 (17-59) U/L ALT 23 (4-49) U/L Alkaline Phosphatase 81 (38-126) U/L Creatine Kinase 98 (55-170) U/L Troponin I (0.000-0.034) ng/mL Total Protein 8.0 (6.3-8.2) g/dL Albumin 4.7 (3.5-5.0) g/dL 08/06/23 Range/Units 14:30 WBC (3.8-10.6) k/uL RBC (4.30-5.90) m/uL Hgb (13.0-17.5) gm/dL Hct (39.0-53.0) % MCV (80.0-100.0) fL MCH (25.0-35.0) pg MCHC (31.0-37.0) g/dL RDW (11.5-15.5) % Plt Count (150-450) k/uL MPV Neutrophils % % Lymphocytes % % Monocytes % % Eosinophils % % Basophils % % Neutrophils # (1.3-7.7) k/uL Lymphocytes # (1.0-4.8) k/uL Monocytes # (0-1.0) k/uL Eosinophils # (0-0.7) k/uL Basophils # (0-0.2) k/uL PT (10.0-12.5) sec INR (<1.2) APTT (22.0-30.0) sec Sodium (137-145) mmol/L Potassium (3.5-5.1) mmol/L Chloride (98-107) mmol/L Carbon Dioxide (22-30) mmol/L Anion Gap mmol/L BUN (9-20) mg/dL Creatinine (0.66-1.25) mg/dL Est GFR (CKD-EPI)AfAm (>60 ml/min/1.73 sqM) Est GFR (CKD-EPI)NonAf (>60 ml/min/1.73 sqM) Glucose (74-99) mg/dL Calcium (8.4-10.2) mg/dL Total Bilirubin (0.2-1.3) mg/dL AST (17-59) U/L ALT (4-49) U/L Alkaline Phosphatase (38-126) U/L Creatine Kinase (55-170) U/L Troponin I <0.012 (0.000-0.034) ng/mL Total Protein (6.3-8.2) g/dL Albumin (3.5-5.0) g/dL - NIH Stroke Scale 1a. Level of Consciousness: (0) alert 1b. LOC Questions: (0) answers correctly 1c. LOC Commands: (0) performs tasks correctly 2. Best Gaze: (0) normal 3. Visual: (0) no visual loss 4. Facial Palsy: (0) normal symmetrical movement 5a. Motor Arm Left: (0) no drift 5b. Motor Arm Right: (0) no drift 6a. Motor Leg Left: (0) no drift 6b. Motor Leg Right: (0) no drift 7. Limb Ataxia: (0) absent 8. Sensory: (0) normal 9. Best Language: (1) mild/moderate aphasia 10. Dysarthria: (1) mild/moderate dysarthria 11. Extinction/Inattention: (0) no abnormality - Thrombolytic Inclusion/Exclusion Thrombolytic Inclusion Criteria: Symptom Onset < 4.5 h - Core Measures Door to Thrombolytics, if given: Patient not a tPA candidate secondary to low NIH and improving symptoms Measure Exclusions: not indicated - Medical Decision Making 63 male to the ER for evaluation patient will be admitted for cardiology evaluation regarding near syncopal syncope event - Radiology Data Radiology results: report reviewed (CT brain and CTA head neck negative for acute disease), image reviewed - EKG Data -: EKG Interpreted by Me (EKG is paced 84 QRS 137 QTc 140 QTc 470) Past Medical History Past Medical History: Cancer, GERD/Reflux, Hyperlipidemia, Hypertension, Osteoarthritis (OA), Skin Disorder, Sleep Apnea/CPAP/BIPAP, Thyroid Disorder Additional Past Medical History / Comment(s): dx Hodgkins Lymphoma at age 24-tx radiation therapy. "chest discomfort/tightness", one heart valve "does not close all the way", little light headed and SOB with exertion at times. no cpap used, occ. gout, eczema,. see chiropractor for back and neck. recent URI infection treated with steroids History of Any Multi-Drug Resistant Organisms: None Reported Past Surgical History: Adenoidectomy, Pacemaker, Tonsillectomy Additional Past Surgical History / Comment(s): Biopsy of abdominal organs and mass rt side of neck removed when dx. with Lymphoma, partial spleenectomy. Colonoscopy. MIA. 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 Sister(s) Family Medical History: Cancer Additional Family Medical History / Comment(s): mult myeloma Father Family Medical History: No Reported History Additional Family Medical History / Comment(s): Father was healthy and lived to be 96 yrs old. Course Vital Signs 08/06/23 08/06/23 08/06/23 14:29 14:32 15:32 Temperature 98 F Pulse Rate 84 82 86 Respiratory 20 20 16 Rate Blood Pressure 117/79 117/79 106/65 O2 Sat by Pulse 99 99 98 Oximetry 08/06/23 16:00 Temperature Pulse Rate 60 Respiratory 20 Rate Blood Pressure 106/65 O2 Sat by Pulse 98 Oximetry - Reevaluation(s) Reevaluation #1: 08/06/23 16:42 Medical records reviewed Reevaluation #2: 08/06/23 16:43 Patient symptoms are persistent Reevaluation #3: 08/06/23 16:43 Patient informed of results questions answered Reevaluation #4: Was pt. sent in by a medical professional or institution (, PA, MAGISTERIAL DISTRICT JUDGE, urgent care, hospital, or correction...) When possible be specific @ -no Did you speak to anyone other than the patient for history (EMS, parent, family, police, friend...)? What history was obtained from this source @ -no Did you review nursing and triage notes (agree or disagree)? Why? @ -agree Are old charts reviewed (outside hosp., previous admission, EMS record, old EKG, old radiological studies, urgent care reports/EKG's, correction records)? Report findings @ -yes Differential Diagnosis (chest pain, altered mental status, abdominal pain women, abdominal pain men, vaginal bleeding, weakness, fever, dyspnea, syncope, headache, dizziness, GI bleed, back pain, seizure, CVA, palpatations, mental health, musculoskeletal)? @ -prior EKG interpreted by me (3pts min.). @ -yes X-rays interpreted by me (1pt min.). @ -yes negative for acute disease CT interpreted by me (1pt min.). @ -no U/S interpreted by me (1pt. min.). @ -no What testing was considered but not performed or refused? (CT, X-rays, U/S, labs)? Why? @ -none What meds were considered but not given or refused? Why? @ -none Did you discuss the management of the patient with other professionals (pr ofessionals i.e. , PA, MAGISTERIAL DISTRICT JUDGE, lab, RT, psych nurse, licensed social worker, publishing manager, teacher, chief technical officer, lead case manager)? Give summary @ -no Was smoking cessation discussed for >3mins.? @ -no Was critical care preformed (if so, how long)? @ -no Were there social determinants of health that impacted care today? How? (Homelessness, low income, unemployed, alcoholism, drug addiction, transportation, low edu. Level, literacy, decrease access to med. care, correction, rehab)? @ -none Was there de-escalation of care discussed even if they declined (Discuss DNR or withdrawal of care, Hospice)? DNR status @ -no What co-morbidities impacted this encounter? (DM, HTN, Smoking, COPD, CAD, Cancer, CVA, ARF, Chemo, Hep., AIDS, mental health diagnosis, sleep apnea, morbid obesity)? @ -none Was patient admitted / discharged? Hospital course, mention meds given and route, prescriptions, significant lab abnormalities, going to OR and other pertinent info. @ - Undiagnosed new problem with uncertain prognosis? @ -no Drug Therapy requiring intensive monitoring for toxicity (Heparin, Nitro, Insulin, Cardizem)? @ -no Were any procedures done? @ -no Diagnosis/symptom? @ - Acute, or Chronic, or Acute on Chronic? @ -Acute Uncomplicated (without systemic symptoms) or Complicated (systemic symptoms)? @ -Complicated Side effects of treatment? @ -no Exacerbation, Progression, or Severe Exacerbation? @ -exacerbation Poses a threat to life or bodily function? How? (Chest pain, USA, SD, pneumonia, PE, COPD, DKA, ARF, appy, cholecystitis, CVA, Diverticulitis, Homicidal, Suicidal, threat to staff... and all critical care pts) @ -yes Reevaluation #5: Differential Syncope: Valvular disease, hypertrophic cardiomyopathy, pulmonary embolism, tamponade, tachycardia, bradycardia, SD, hypovolemia, hemorrhage, dissection, anemia, intracranial hemorrhage, seizure, hypoglycemia, carbon monoxide poisoning, this is not meant to be an all-inclusive list. - Consultations Consultation #1: Spoke with Dr. Petersen agrees to admit this patient2 Critical Care Time Critical Care Time: Yes Total Critical Care Time: 31 Disposition Clinical Impression: Weakness, Near syncope, Syncope, Arrhythmia Disposition: ADMITTED IP TO THIS [facility] Condition: Serious Is patient prescribed a controlled substance at d/c from ED?: No Referrals: Lc Barajas DO [Primary Care Provider] - 1-2 days Time of Disposition: 16:45
--- NOTE | 2023-08-06 15:30 | CT ---
EXAMINATION TYPE: CODE STROKE: CT brain wo contrast CT DLP: 1146.6 mGycm, Automated exposure control for dose reduction was used. DATE OF EXAM: 08/06/2023 3:04 PM COMPARISON: . CLINICAL INDICATION:Male, 63 years old with history of Neuro deficit, acute, stroke suspected, cerebr al vascular accident. TECHNIQUE: Brain: Axial CT images of the brain were obtained with coronal and sagittal reformats created and rev iewed. Contrast used: None. Oral contrast used: None. FINDINGS: Brain: Extra-axial spaces: No abnormal extra-axial fluid collections. Ventricular system: Within normal limits Cerebral parenchyma: No acute intraparenchymal hemorrhage or mass effect. The brown-white junction is well differentiated tiny basal ganglia calcifications. Hyperdense focus in the right temporal lobe i s likely another calcification. Cerebellum: Unremarkable. Mass effect: No evidence of midline shift. Intracranial vasculature: unremarkable Soft tissues: Normal. Calvarium/osseous structures: No depressed skull fracture. Paranasal sinuses and mastoid air cells: Mild scattered paranasal sinus disease. Visualized orbits: Orbital contents are intact. IMPRESSION: No acute intracranial process. Several calcific foci. Report called to Dr. Blair Reyes at 3:26 PM on 08/06/2023
--- NOTE | 2023-08-06 15:39 | CT ---
EXAMINATION TYPE: CT angio head neck DATE OF EXAM: 08/06/2023 HISTORY: cva COMPARISON: 10/20/2022 CT DLP: 460.3 mGycm. Automated Exposure Control for Dose Reduction was Utilized. TECHNIQUE: CTA scan of the head and neck is performed with IV Contrast, patient injected with 65ml m L of Isovue 370, axial images are obtained, coronal and sagittal reformatted images are reviewed. 3D reconstructed images are created on an independent workstation and reviewed. FINDINGS: The brachiocephalic origins are widely patent and no significant stenosis. There is mild calcified plaque in the distal common carotid arteries and carotid bifurcations but les s than 50% stenoses of the internal carotid arteries within the neck. There is no stenosis of the major tebral arteries. Intracranially, there is no stenosis, segmental occlusion, sizable aneurysm sac or vascular malformat ion. IMPRESSION:. 1. No significant stenosis of the brachiocephalic origins. 2. No significant stenosis of the common and internal carotid arteries within the neck. 3. No evidence of occlusive disease, sizable aneurysm sac or vascular malformation intracranially. Intracranially. NASCET criteria was used in interpretation of this exam?
--- NOTE | 2023-08-06 15:52 | XR ---
EXAMINATION TYPE: XR chest 2V DATE OF EXAM: 08/06/2023 COMPARISON: 10/20/2022 HISTORY: Altered mental status. TECHNIQUE: Frontal and lateral views of the chest are obtained. FINDINGS: There is no focal air space opacity, pleural effusion, or pneumothorax seen. The cardiac silhouette size is within normal limits. The osseous structures are intact. There is a 2-lead cardiac pacemaker. There has been prior CABG surgery. IMPRESSION: No acute cardiopulmonary process.
[2023-08-06] MEDS ORDERED: ONDANSETRON 4 MG/2 ML VIAL IVP PRN (17:57)
[2023-08-06] MEDS ORDERED: NALOXONE 0.4 MG/ML 1 ML VIAL IV PRN (17:57)
[2023-08-06] MEDS ORDERED: MORPHINE SULFATE 4 MG/ML SYRINGE IV PRN (17:57)
[2023-08-06] MEDS: WARFARIN 2.5 MG TAB PO ONE (21:55)
[2023-08-06] MEDS: ALPRAZolam 0.5 MG TAB PO PRN (21:55)
[2023-08-06] MEDS: ATORVASTATIN 40 MG TAB PO SCH (21:55)
[2023-08-06] MEDS: METOPROLOL TARTRATE 25 MG TAB PO STA (21:55)
[2023-08-06] MEDS: ALPRAZolam 0.25 MG TAB PO SCH (21:58)
[2023-08-06] MEDS: METOPROLOL TARTRATE 25 MG TAB PO SCH (21:58)
[2023-08-06] MEDS ORDERED: TIMOLOL 0.25% OPHTH DROPS 5 ML BTL BOTH EYES SCH (22:00)
[2023-08-06] MEDS: ZINC SULFATE 220 MG CAP PO SCH (23:45)
[2023-08-07 07:50] LABS: INR 3.1 (<1.2); Prothrombin Time 30.3 sec (10.0-12.5)
[2023-08-07] MEDS: LATANOPROST 0.005% OPHTH DROPS 2.5 ML BTL BOTH EYES SCH (09:00)
[2023-08-07] MEDS: MULTIVITAMINS, THERA 1 EACH TAB PO SCH (10:10)
[2023-08-07] MEDS: EZETIMIBE 10 MG TAB PO SCH (10:11)
[2023-08-07] MEDS: PANTOPRAZOLE 40 MG TABLET PO SCH (10:11)
[2023-08-07] MEDS: LEVOTHYROXINE 50 MCG TAB PO SCH (10:11)
--- NOTE | 2023-08-07 10:30 | P.CRDCN ---
History of Present Illness History of present illness: HISTORY OF PRESENT ILLNESS: This is a 63-year-old male with a past medical history significant for coronary artery disease, valvular heart disease with mechanical aortic valve replacement and mechanical mitral valve replacement, cardiomyopathy, pacemaker implantation, diabetes, and hyperlipidemia. Patient follows in the office with Dr. Casper. We have been asked to see the patient in consultation for syncope. Patient examined at the bedside. Patient states yesterday he was in his backyard pulling weeds when he began to feel dizzy. He states he then fell to the ground. He states that he crawled to the fence to sit up. He states that he began to feel nauseous so he called 911. He states like he felt like he was going to pass out however he did not lose consciousness. He denied having any palpitations. Denied any chest pain or pressure. Denied any shortness of breath. He denies any recent illness. Vital signs are stable. Blood pressure is borderline low. Orthostatic blood pressures obtained and were negative. DIAGNOSTICS: - EKG reveals ventricular paced rhythm. - Chest xray negative for acute process. - Laboratory data: WBC 8.7. Hemoglobin 14.8. Platelet count 222. INR 3.1. Sodium 139. Potassium 4.3. BUN 28. Creatinine 0.86. Troponin negative x 3. - Current home cardiac medications include warfarin 2.5 mg on Thursday and and 5 mg all other days, Lipitor 40 mg at night, Zetia 10 mg daily, Jardiance 25 mg daily, metoprolol titrate 25 mg twice a day. - Most recent echocardiogram obtained in May 2023 revealed ejection fraction 42%, prosthetic mitral valve, prosthetic aortic valve, moderate TR - Cardiac catheterization history: June 2022 revealing 40% ostial circumflex, 99% ostial RCA, left dominant system, 3-4+ aortic regurgitation with severe aortic stenosis REVIEW OF SYSTEMS: At the time of my exam: CONSTITUTIONAL: Denies fever or chills. HEENT: Denies blurred vision, vision changes, or eye pain. Denies hemoptysis CARDIOVASCULAR: Denies chest pain. Denies orthopnea. Denies PND. Denies palpitations RESPIRATORY: Denies shortness of breath. GASTROINTESTINAL: Denies abdominal pain. Denies nausea or vomiting. HEMATOLOGIC: Denies bleeding disorders. GENITOURINARY: Denies any blood in urine. SKIN: Denies pruitis. Denies rash. PHYSICAL EXAM: VITAL SIGNS: Reviewed. GENERAL: Well-developed in no acute distress. HEENT: Head is normocephalic. Pupils are equal, round. Sclerae anicteric. Mucous membranes of the mouth are moist. Neck supple. No JVD or thyromegaly LUNGS: Respirations even and unlabored. Lungs essentially clear to auscultation bilaterally. HEART: Regular rate and rhythm. S1 and S2 heard. ABDOMEN: Soft. Nondistended. Nontender. EXTREMITIES: Normal range of motion. No clubbing or cyanosis. Peripheral pulses intact. No lower extremity edema NEUROLOGIC: Awake and alert. Oriented x 3. ASSESSMENT: Presyncope Coronary artery disease without previous stenting Valvular heart disease with mechanical aortic valve replacement and mechanical mitral valve replacement History of permanent pacemaker implantation, [facility] Hyperlipidemia Diabetes PLAN: Continue anticoagulation with Coumadin Continue additional cardiac medications Orthostatic blood pressures obtained and were negative Interrogate patient's device If device interrogation does not reveal any significant events, recommend de creasing Jardiance to 10 mg upon discharge Further recommendations pending patient course Nurse practitioner note has been reviewed by physician. Signing provider agrees with the documented findings, assessment, and plan of care documented by [employer] as a scribe. Past Medical History Past Medical History: Cancer, GERD/Reflux, Hyperlipidemia, Hypertension, Ost eoarthritis (OA), Skin Disorder, Sleep Apnea/CPAP/BIPAP, Thyroid Disorder Additional Past Medical History / Comment(s): dx Hodgkins Lymphoma at age 24-tx radiation therapy. "chest discomfort/tightness", one heart valve "does not close all the way", little light headed and SOB with exertion at times. no cpap used, occ. gout, eczema,. see chiropractor for back and neck. recent URI infection treated with steroids History of Any Multi-Drug Resistant Organisms: None Reported Past Surgical History: Adenoidectomy, Pacemaker, Tonsillectomy Additional Past Surgical History / Comment(s): Biopsy of abdominal organs and mass rt side of neck removed when dx. with Lymphoma, partial spleenectomy. Colonoscopy. MIA. 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 Sister(s) Family Medical History: Cancer Additional Family Medical History / Comment(s): mult myeloma Father Family Medical History: No Reported History Additional Family Medical History / Comment(s): Father was healthy and lived to be 96 yrs old. Medications and Allergies Home Medications Medication Instructions Recorded Confirmed Type Ezetimibe [Zetia] 10 mg PO DAILY 05/04/19 08/06/23 History Fexofenadine HCl 180 mg PO DAILY 05/04/19 08/06/23 History Levothyroxine Sodium [Synthroid] 50 mcg PO DAILY 05/04/19 08/06/23 History Metoprolol Tartrate [Lopressor] 25 mg PO BID 05/04/19 08/06/23 History Omeprazole 20 mg PO DAILY 05/04/19 08/06/23 History Empagliflozin [Jardiance] 25 mg PO DAILY 06/11/22 08/06/23 History Warfarin [Coumadin] 2.5 mg PO TUTH@2100 10/20/22 08/06/23 History Warfarin [Coumadin] 5 mg PO SUMOWEFRSA@2100 10/20/22 08/06/23 History ALPRAZolam [Xanax] 0.5 mg PO BID PRN 08/06/23 08/06/23 History Atorvastatin [Lipitor] 40 mg PO HS 08/06/23 08/06/23 History Cholecalciferol (Vitamin D3) 50 mcg PO BID 08/06/23 08/06/23 History [Vitamin D3 (50 Mcg = 2000 Iu)] Latanoprost [Latanoprost 0.005%] 1 drop BOTH EYES DAILY 08/06/23 08/06/23 History Multivit-Mins/Iron/Folic/Lycop 1 tab PO DAILY 08/06/23 08/06/23 History [Centrum Men's Tablet] Zinc Gluconate [Zinc] 50 mg PO HS 08/06/23 08/06/23 History timoloL maleate [timoloL maleate 1 drop BOTH EYES HS 08/06/23 08/06/23 History 0.25%] Allergies Allergy/AdvReac Type Severity Reaction Status Date / Time No Known Allergies Allergy Verified 08/06/23 16:26 Physical Exam Vitals: Vital Signs Temp Pulse Pulse Pulse Pulse Resp BP 08/07/23 07:57 98 F 80 82 86 17 08/07/23 06:48 97.4 F L 80 14 95/66 08/07/23 05:45 97.4 F L 81 16 93/51 08/07/23 03:40 84 14 91/63 08/07/23 01:37 81 14 87/55 08/06/23 23:00 98.0 F 94 15 102/66 08/06/23 22:00 86 15 98/64 08/06/23 20:00 97.9 F 93 16 114/69 08/06/23 17:05 87 88 90 20 08/06/23 16:55 86 20 102/69 08/06/23 16:00 60 20 106/65 08/06/23 15:32 86 16 106/65 08/06/23 14:32 82 20 117/79 08/06/23 14:29 98 F 84 20 117/79 BP BP BP Pulse Ox 08/07/23 07:57 99/60 99/63 110/72 96 08/07/23 06:48 96 08/07/23 05:45 96 08/07/23 03:40 98 08/07/23 01:37 97 08/06/23 23:00 95 08/06/23 22:00 95 08/06/23 20:00 99 08/06/23 17:05 107/71 115/74 107/67 08/06/23 16:55 99 08/06/23 16:00 98 08/06/23 15:32 98 08/06/23 14:32 99 08/06/23 14:29 99 Intake and Output 08/06/23 08/07/23 08/07/23 22:59 06:59 14:59 Output Total 900 525 Balance -900 -525 Output: Urine 900 525 Results 08/06/23 14:30 08/06/23 14:30 Cardiac Enzymes 08/06/23 08/06/23 08/06/23 Range/Units 14:30 14:30 18:18 AST 35 (17-59) U/L Troponin I <0.012 <0.012 (0.000-0.034) ng/mL 08/06/23 Range/Units 20:25 AST (17-59) U/L Troponin I <0.012 (0.000-0.034) ng/mL Coagulation 08/06/23 08/07/23 Range/Units 14:30 06:34 PT 30.1 H 30.3 H (10.0-12.5) sec APTT 28.7 (22.0-30.0) sec CBC 08/06/23 Range/Units 14:30 WBC 8.7 (3.8-10.6) k/uL RBC 4.93 (4.30-5.90) m/uL Hgb 14.8 (13.0-17.5) gm/dL Hct 45.1 (39.0-53.0) % Plt Count 221 (150-450) k/uL Comprehensive Metabolic Panel 08/06/23 Range/Units 14:30 Sodium 139 (137-145) mmol/L Potassium 4.3 (3.5-5.1) mmol/L Chloride 106 (98-107) mmol/L Carbon Dioxide 22 (22-30) mmol/L BUN 28 H (9-20) mg/dL Creatinine 0.86 (0.66-1.25) mg/dL Glucose 102 H (74-99) mg/dL Calcium 9.6 (8.4-10.2) mg/dL AST 35 (17-59) U/L ALT 23 (4-49) U/L Alkaline Phosphatase 81 (38-126) U/L Total Protein 8.0 (6.3-8.2) g/dL Albumin 4.7 (3.5-5.0) g/dL Current Medications Generic Name Dose Route Start Last Admin Trade Name Freq PRN Reason Stop Dose Admin Alprazolam 0.25 mg 08/06/23 21:15 08/06/23 21:58 Alprazolam 0.25 Mg Tab PO Not Given HS JAUN Alprazolam 0.5 mg 08/06/23 21:28 08/06/23 21:55 Alprazolam 0.5 Mg Tab PO 0.5 mg BID PRN Administration Anxiety Atorvastatin Calcium 40 mg 08/06/23 21:15 08/06/23 21:55 Atorvastatin 40 Mg Tab PO 40 mg HS JAUN Administration Dapagliflozin 10 mg 08/07/23 09:00 Dapagliflozin Propanediol 10 Mg Tablet PO DAILY [facility] Ezetimibe 10 mg 08/07/23 09:00 Ezetimibe 10 Mg Tab PO DAILY [facility] Latanoprost 1 drops 08/07/23 09:00 Latanoprost 0.005% Ophth Drops 2.5 Ml Btl BOTH EYES DAILY [facility] Levothyroxine Sodium 50 mcg 08/07/23 06:30 Levothyroxine 50 [place] [address] [facility] Metoprolol Tartrate 25 mg 08/06/23 21:30 08/06/23 21:58 Metoprolol Tartrate 25 Mg Tab PO Not Given BID [facility] Miscellaneous Information 0 each 08/06/23 21:30 Warfarin Per Pharmacy MISCELLANE DIRECTED PRN ANTICOAG *GOAL 2.5-3.5* Morphine Sulfate 4 mg 08/06/23 17:57 Morphine Sulfate 4 Mg/Ml Syringe IV Q4HR PRN Severe Pain (Scale 7 to 10) Multivitamins 1 each 08/07/23 09:00 Multivitamins, Thera 1 Each Tab PO DAILY [facility] Naloxone HCl 0.2 mg 08/06/23 17:57 Naloxone 0.4 Mg/Ml 1 Ml Vial IV Q2M PRN Opioid Reversal Ondansetron HCl 4 mg 08/06/23 17:57 Ondansetron 4 Mg/2 Ml Vial IVP Q8HR PRN Nausea And Vomiting Pantoprazole Sodium 40 mg 08/07/23 09:00 Pantoprazole 40 Mg Tablet PO DAILY [facility] Timolol Maleate 1 drops 08/07/23 21:00 Timolol 0.25% Ophth Drops 5 Ml Btl BOTH EYES HS [facility] Warfarin Sodium 2.5 mg 08/11/23 21:00 Warfarin 2.5 Mg Tab PO TUTH@2100 [facility] Protocol Warfarin Sodium 5 mg 08/07/23 21:00 Warfarin 5 Mg Tab PO SUMOWEFRSA@2100 [facility] Protocol Zinc Sulfate 220 mg 08/06/23 21:30 08/06/23 23:45 Zinc Sulfate 220 Mg Cap PO Not Given HS [facility] Intake and Output 08/06/23 08/07/23 08/07/23 22:59 06:59 14:59 Output Total 900 525 Balance -900 -525 Output: Urine 900 525 08/06/23 14:30 08/06/23 14:30
--- NOTE | 2023-08-07 12:31 | CT ---
EXAMINATION TYPE: CT brain wo con CT DLP: 1098.8 mGycm, Automated exposure control for dose reduction was used. DATE OF EXAM: 08/07/2023 11:40 AM COMPARISON: . CLINICAL INDICATION:Male, 63 years old with history of TIA versus stroke; disease/change in these. Le ft-sided weakness., Follow-up cerebral vascular accident. TECHNIQUE: Brain: Axial CT images of the brain were obtained with coronal and sagittal reformats created and rev iewed. Contrast used: None. Oral contrast used: None. FINDINGS: Brain: Extra-axial spaces: No abnormal extra-axial fluid collections. Ventricular system: Within normal limits Cerebral parenchyma: No acute intraparenchymal hemorrhage or mass effect. The brown-white junction is well differentiated. Cerebellum: Unremarkable. Mass effect: No evidence of midline shift. Intracranial vasculature: unremarkable Soft tissues: Normal. Calvarium/osseous structures: No depressed skull fracture. Paranasal sinuses and mastoid air cells: Mild scattered paranasal sinus disease. Visualized orbits: Orbital contents are intact. IMPRESSION: No acute intracranial process.
[2023-08-07] MEDS: DAPAGLIFLOZIN PROPANEDIOL 10 MG TABLET PO SCH (14:59)
--- NOTE | 2023-08-07 17:20 | P.HPIM ---
History of Present Illness H&P Date: 08/07/23 Chief Complaint: Dizzy This is a pleasant 63-year-old patient who follows with Dr. Barajas. Operations Expert Dr. Casper. Chronic stable medical conditions include GERD, hyperlipidemia, hypertension, osteoarthritis, permanent pacemaker, hypothyroid, obstructive sleep apnea does not use CPAP, gout, anxiety. In the past has had treatment for Hodgkin's with radiation treatment. Mechanical mitral and aortic valve at [facility]. On Coumadin. CHF EF 30-35% Patient was yesterday working in the yard while bending down he developed severe dizziness. Nausea. Called 911. He was told by the EMT and in the ER that speech was slightly off. Slight headache. No change in vision. Per the patient speech is back to normal. Patient still feeling a bit off while wal shanita. 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 . Ex-smoker. No alcohol. Physical examination: VITAL SIGNS: 98, 80, 17, 99/60. No orthostatic 96% room air GENERAL: BMI 26.4, reclining in bed comfortable EYES: Pupils equal. Conjunctiva normal. HEENT: External appearance of nose and ears normal, oral cavity grossly normal. NECK: JVD not raised; masses not palpable. HEART: First and second heart sounds are normal; no edema. LUNGS: Respiratory rate normal; clear to auscultation. ABDOMEN: Soft, nontender, liver spleen not palpable, no masses palpable. PSYCH: Alert and oriented x3; mood and affect normal. MUSCULOSKELETAL:No Clubbing/cyanosis;muscles-grossly intact NEUROLOGICAL: [Cranial nerves grossly intact; no facial asymmetry, no obvious cerebellar signs. Pulses skin grossly intact LYMPHATICS: No lymph nodes palpable in the axilla and neck INVESTIGATIONS, reviewed in the clinical context: August 06, 2023: White count 8.7 hemoglobin 14.8 platelets 221 INR 3.1 sodium 139 potassium 4.3 BUN 28 creatinine 0.86 Troponin I less than 0.012 x 3 EKG tracing personally reviewed by me-paced rhythm. Ventricular paced. CT angio head and neck: Unremarkable CT brain [August 06, 2023]: Unremarkable Chest x-ray film personally reviewed by me-cardiomegaly. Pacemaker Previous studies 2-D echocardiogram: EF 30-35% Assessment and plan: -Patient presented episode of dizziness. While working in the yard and bending down. Though he had this slight similar episode the prior evening when he got up from watching television walk after that. He was reported to have some change in speech by the EMT in the ER. Which subsequently resolved. TIA. Rule out stroke. Patient cannot have an MRI because of mechanical heart valves. Repeat CT scan ordered. Neurology consulted -GERD Omeprazole -Hyperlipidemia Zetia 10 mg a day -Essential hypertension Lopressor 25 mg twice a day -Diabetes mellitus type 2, on oral hypoglycemic jardiance -Primary osteoarthritis -Chronic congestive heart failure from systolic dysfunction EF 30-35%. Likely secondary to previous valvular abnormality Continue Jardiance -Hypothyroid Synthroid 50 g -Mechanical aortic and mitral valve recently done at [facility] On Coumadin -Coumadin monitoring Repeat CT scan brain ordered. Discussed with the patient. Will get a neurology opinion. Past Medical History Past Medical History: Cancer, GERD/Reflux, Hyperlipidemia, Hypertension, Osteoarthritis (OA), Skin Disorder, Sleep Apnea/CPAP/BIPAP, Thyroid Disorder Additional Past Medical History / Comment(s): dx Hodgkins Lymphoma at age 24-tx radiation therapy. "chest discomfort/tightness", one heart valve "does not close all the way", little light headed and SOB with exertion at times. no cpap used, occ. gout, eczema,. see chiropractor for back and neck. recent URI infection treated with steroids History of Any Multi-Drug Resistant Organisms: None Reported Past Surgical History: Adenoidectomy, Pacemaker, Tonsillectomy Additional Past Surgical History / Comment(s): Biopsy of abdominal organs and mass rt side of neck removed when dx. with Lymphoma, partial spleenectomy. Colonoscopy. MIA. 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 Sister(s) Family Medical History: Cancer Additional Family Medical History / Comment(s): mult myeloma Father Family Medical History: No Reported History Additional Family Medical History / Comment(s): Father was healthy and lived to be 96 yrs old. Medications and Allergies Home Medications Medication Instructions Recorded Confirmed Type Ezetimibe [Zetia] 10 mg PO DAILY 05/04/19 08/06/23 History Fexofenadine HCl 180 mg PO DAILY 05/04/19 08/06/23 History Levothyroxine Sodium [Synthroid] 50 mcg PO DAILY 05/04/19 08/06/23 History Metoprolol Tartrate [Lopressor] 25 mg PO BID 05/04/19 08/06/23 History Omeprazole 20 mg PO DAILY 05/04/19 08/06/23 History Empagliflozin [Jardiance] 25 mg PO DAILY 06/11/22 08/06/23 History Warfarin [Coumadin] 2.5 mg PO TUTH@2100 10/20/22 08/06/23 History Warfarin [Coumadin] 5 mg PO SUMOWEFRSA@2100 10/20/22 08/06/23 History ALPRAZolam [Xanax] 0.5 mg PO BID PRN 08/06/23 08/06/23 History Atorvastatin [Lipitor] 40 mg PO HS 08/06/23 08/06/23 History Cholecalciferol (Vitamin D3) 50 mcg PO BID 08/06/23 08/06/23 History [Vitamin D3 (50 Mcg = 2000 Iu)] Latanoprost [Latanoprost 0.005%] 1 drop BOTH EYES DAILY 08/06/23 08/06/23 His tory Multivit-Mins/Iron/Folic/Lycop 1 tab PO DAILY 08/06/23 08/06/23 History [Centrum Men's Tablet] Zinc Gluconate [Zinc] 50 mg PO HS 08/06/23 08/06/23 History timoloL maleate [timoloL maleate 1 drop BOTH EYES HS 08/06/23 08/06/23 History 0.25%] Allergies Allergy/AdvReac Type Severity Reaction Status Date / Time No Known Allergies Allergy Verified 08/06/23 16:26 Physical Exam Vitals: Vital Signs Temp Pulse Pulse Pulse Pulse Resp BP 08/07/23 07:57 98 F 80 82 86 17 08/07/23 06:48 97.4 F L 80 14 95/66 08/07/23 05:45 97.4 F L 81 16 93/51 08/07/23 03:40 84 14 91/63 08/07/23 01:37 81 14 87/55 08/06/23 23:00 98.0 F 94 15 102/66 08/06/23 22:00 86 15 98/64 08/06/23 20:00 97.9 F 93 16 114/69 08/06/23 17:05 87 88 90 20 08/06/23 16:55 86 20 102/69 08/06/23 16:00 60 20 106/65 08/06/23 15:32 86 16 106/65 08/06/23 14:32 82 20 117/79 08/06/23 14:29 98 F 84 20 117/79 BP BP BP Pulse Ox 08/07/23 07:57 99/60 99/63 110/72 96 08/07/23 06:48 96 08/07/23 05:45 96 08/07/23 03:40 98 08/07/23 01:37 97 08/06/23 23:00 95 08/06/23 22:00 95 08/06/23 20:00 99 08/06/23 17:05 107/71 115/74 107/67 08/06/23 16:55 99 08/06/23 16:00 98 08/06/23 15:32 98 08/06/23 14:32 99 08/06/23 14:29 99 Intake and Output 08/06/23 08/07/23 08/07/23 22:59 06:59 14:59 Output Total 900 525 Balance -900 -525 Output: Urine 900 525 Results CBC & Chem 7: 08/06/23 14:30 08/06/23 14:30 Labs: Abnormal Lab Results - Last 24 Hours (Table) 08/06/23 08/06/23 08/07/23 Range/Units 14:30 14:30 06:34 PT 30.1 H 30.3 H (10.0-12.5) sec INR 3.1 H 3.1 H (<1.2) BUN 28 H (9-20) mg/dL Glucose 102 H (74-99) mg/dL Total Bilirubin 1.4 H (0.2-1.3) mg/dL
[2023-08-07] MEDS: ACETAMINOPHEN TAB 500 MG TAB PO PRN (17:58)
--- NOTE | 2023-08-07 20:28 | P.CNNES ---
History of Present Illness Consult date: 08/07/23 Requesting physician: Sonny Petersen Reason for Consult: possible cerebellar TIA History of Present Illness: This is a 63 y/o gentleman with history of CAD, valvular heart disease s/p mechanical aortic valve and mitral replacement on coumadin, cardiomypathy s/p pacemaker and remote Hodgkins lymphoma post radiation who presents with dizziness. Patient states yesterday he was working on his lawn then felt dizzy around 2pm. He had lay down as result. He has nausea but no vomiting, generalized weakness. No diplopia, rining of ears or hearing loss. Denies focal weakness, difficulty getting words out. No stroke in past. He feels while in hospital he feels light headed while get up and moving but better with rest. Denies fever, sick contacts or head trauma. He states he is pre-diabetic. Some of the work-up during this hospital visit consisted of: Orthostatic: Supine is 110/72 with HR 86; sitting 99/60 with HR 80 and standing is 99/63 with heart 82 Glucose is 102 I reviewed rest of lab work-up. He had CT head on presentation then repeat today. The repeat CT is negative for acute intracranial process. I personally reviewed and agree with report. CTA head and neck is unremarkable. Review of Systems The positive and negative as per HPI. Past Medical History Past Medical History: Cancer, GERD/Reflux, Hyperlipidemia, Hypertension, Os teoarthritis (OA), Skin Disorder, Sleep Apnea/CPAP/BIPAP, Thyroid Disorder Additional Past Medical History / Comment(s): dx Hodgkins Lymphoma at age 24-tx radiation therapy. "chest discomfort/tightness", one heart valve "does not close all the way", little light headed and SOB with exertion at times. no cpap used, occ. gout, eczema,. see chiropractor for back and neck. recent URI infection treated with steroids History of Any Multi-Drug Resistant Organisms: None Reported Past Surgical History: Adenoidectomy, Pacemaker, Tonsillectomy Additional Past Surgical History / Comment(s): Biopsy of abdominal organs and mass rt side of neck removed when dx. with Lymphoma, partial spleenectomy. Colonoscopy. MIA. Mechanical valve aortic and mitral valve replacement Past Anesthesia/Blood Transfusion Reactions: Motion Sickness Additional Past Anesthesia/Blood Transfusion Reaction / Comment(s): no blood transfusions Type of Cardiac Device: Permanent Pacemaker Device Placement Date:: 08/20/22 Past Psychological History: Anxiety Additional Psychological History / Comment(s): Pt resides with his spouse. He is independent. Smoking Status: Former smoker Past Alcohol Use History: None Reported Additional Past Alcohol Use History / Comment(s): Pt started smoking as a teen. He quit smoking cigarettes in 1986 and quit smoking cigars in 2004. Past Drug Use History: None Reported Additional Drug Use History / Comment(s): . - Past Family History Mother Family Medical History: No Reported History Additional Family Medical History / Comment(s): Mother of chf at the age of 84 yrs. Sister(s) Family Medical History: Cancer Additional Family Medical History / Comment(s): mult myeloma Father Family Medical History: No Reported History Additional Family Medical History / Comment(s): Father was healthy and lived to be 96 yrs old. Medications and Allergies Home Medications Medication Instructions Recorded Confirmed Type Ezetimibe [Zetia] 10 mg PO DAILY 05/04/19 08/06/23 History Fexofenadine HCl 180 mg PO DAILY 05/04/19 08/06/23 History Levothyroxine Sodium [Synthroid] 50 mcg PO DAILY 05/04/19 08/06/23 History Metoprolol Tartrate [Lopressor] 25 mg PO BID 05/04/19 08/06/23 History Omeprazole 20 mg PO DAILY 05/04/19 08/06/23 History Empagliflozin [Jardiance] 25 mg PO DAILY 06/11/22 08/06/23 History Warfarin [Coumadin] 2.5 mg PO TUTH@209910/20/22 08/06/23 History Warfarin [Coumadin] 5 mg PO SUMOWEFRSA@2100 10/20/22 08/06/23 History ALPRAZolam [Xanax] 0.5 mg PO BID PRN 08/06/23 08/06/23 History Atorvastatin [Lipitor] 40 mg PO HS 08/06/23 08/06/23 History Cholecalciferol (Vitamin D3) 50 mcg PO BID 08/06/23 08/06/23 History [Vitamin D3 (50 Mcg = 2000 Iu)] Latanoprost [Latanoprost 0.005%] 1 drop BOTH EYES DAILY 08/06/23 08/06/23 History Multivit-Mins/Iron/Folic/Lycop 1 tab PO DAILY 08/06/23 08/06/23 History [Centrum Men's Tablet] Zinc Gluconate [Zinc] 50 mg PO HS 08/06/23 08/06/23 History timoloL maleate [timoloL maleate 1 drop BOTH EYES HS 08/06/23 08/06/23 History 0.25%] Allergies Allergy/AdvReac Type Severity Reaction Status Date / Time No Known Allergies Allergy Verified 08/06/23 16:26 Physical Examination - Vital Signs Vital Signs: Vital Signs Temp Pulse Pulse Pulse Pulse Resp BP 08/07/23 19:51 98.4 F 90 99 101 H 16 08/07/23 14:29 97.4 F L 83 18 08/07/23 14:00 18 08/07/23 09:00 17 08/07/23 07:57 98 F 80 82 86 17 08/07/23 06:48 97.4 F L 80 14 95/66 08/07/23 05:45 97.4 F L 81 16 93/51 08/07/23 03:40 84 14 91/63 08/07/23 01:37 81 14 87/55 08/06/23 23:00 98.0 F 94 15 102/66 08/06/23 22:00 86 15 98/64 BP BP BP Pulse Ox 08/07/23 19:51 114/70 114/65 100/50 95 08/07/23 14:29 104/65 96 08/07/23 14:00 08/07/23 09:00 08/07/23 07:57 99/60 99/63 110/72 96 08/07/23 06:48 96 08/07/23 05:45 96 08/07/23 03:40 98 08/07/23 01:37 97 08/06/23 23:00 95 08/06/23 22:00 95 Intake and Output 08/07/23 08/07/23 08/07/23 06:59 14:59 22:59 Intake Total 118 Output Total 525 600 200 Balance -525 -600 -82 Intake: Oral 118 Output: Urine 525 600 200 Other: Voiding Method Toilet Weight 86.183 kg General: Lying in bed and is not in acute distress. Neuro: The patient is awake, alert, oriented to self, place and time. Is following simple commands. No aphasia or neglect. Pupils are round, equal and reactive to light. Pupils are 3-4mm bilaterally and reactive to light. Visual valencia are full to confrontation. EOM intact and no nystagmus. Normal facial sensation to touch. No facial weakness. No dysarthria. Tongue is midline and move side to side without difficulty. Motor: Gait: [place] unsteady, dizzy upon standing but walked without assistance and did well. Motor: Strength is 5/5 throughout. Normal tone and bulk. Sensation: Normal to touch throughout. Cerebellar: Normal finger to nose, heel to live. Reflex: 2+ throughout. Plantars: Mute bilaterally. Results - Laboratory Findings CBC and BMP: 08/06/23 14:30 08/06/23 14:30 Abnormal Lab Findings: Abnormal Labs 08/06/23 08/06/23 08/07/23 14:30 14:30 06:34 PT 30.1 H 30.3 H INR 3.1 H 3.1 H BUN 28 H Glucose 102 H Total Bilirubin 1.4 H Assessment and Plan Assessment: This is a 63 y/o gentleman who presents with dizziness, generalized weakness. He feels today when he stand up he is light headed. Vertigo: Appear due to orthostatic. Had two CT head which are negative for acute process. CTA head and neck is unremarkable. Positive orthostatic with decrease diastolic blood pressure >10 from supine to sitting. History of CAD Hx of valvular heart disease s/p mechanical aortic valve and mitral replacement on coumadin Hx cardiomypathy s/p pacemaker Remote Hodgkins lymphoma post radiation Pre-DM Plan: Recommend repeating orthostatic vitals. Recommend IV hydration and started on Meclizine 25mg 1 tab qid for 7 days and after that PRN. Cannot obtain MRI since patient has valve replacement. Unsure if can have outpatient MRI Brain that is compatible for his valve replace and pacemaker. Will obtain TSH and vitamin B12. I consulted PT and OT Cardiology is consulted. Recommend following-up with ENT as outpatient if continues to be dizzy. Will defer the rest of medical management to primary and other specialist. The plan is discussed with patient and nurse. Thank you for the consultation. Time with Patient: Greater than 30
[2023-08-07] MEDS ORDERED: WARFARIN 5 MG TAB PO SCH (21:00)
[2023-08-07] MEDS: MECLIZINE 25 MG TAB PO SCH (21:12)
[2023-08-07] MEDS: WARFARIN 5 MG TAB PO SCH (21:12)
[2023-08-07] MEDS: TIMOLOL 0.25% OPHTH DROPS 5 ML BTL BOTH EYES SCH (22:22)
[2023-08-08 07:13] LABS: Prothrombin Time 29.8 sec (10.0-12.5)
--- NOTE | 2023-08-08 17:07 | CT ---
EXAMINATION TYPE: CT brain wo con DATE OF EXAM: 08/08/2023 COMPARISON: 08/07/2023 HISTORY: 63-year-old male continued dizziness TECHNIQUE: Examination was done in axial plane without intravenous contrast. Coronal and sagittal r econstructions performed. CT DLP: 1098.8 mGycm Automated exposure control for dose reduction was used. FINDINGS: There is no evidence of acute intracranial hemorrhage, acute ischemic changes, mass, mass-effect, or extra-axial fluid collection. There is no effacement of cerebral sulci or basal subarachnoid cister ns. There is no hydrocephalus. There is no midline shift. Sandhu-white matter distinction is preserv ed. Benign basal ganglionic calcifications on both sides. Mild age-related volume also overlying the supe rior bilateral cerebral convexities. Rightward nasal septal deviation. Mild mucosal thickening ethmoid air cells and floor of the left max illary sinus. Cerumen in left external auditory canal. Mastoid air cells well pneumatized. Orbits and globes are intact. IMPRESSION: 1. No acute intracranial abnormality seen. 2. Mild chronic ethmoid and left maxillary sinus disease.
--- NOTE | 2023-08-08 18:13 | P.PN ---
Progress Note - Text Progress Note Date: 08/08/23 Chief Complaint: Dizzy This is a pleasant 63-year-old patient who follows with Dr. Barajas. Manager Ed Dr. Casper. Chronic stable medical conditions include GERD, hyperlipidemia, hypertension, osteoarthritis, permanent pacemaker, hypothyroid, obstructive sleep apnea does not use CPAP, gout, anxiety. In the past has had treatment for Hodgkin's with radiation treatment. Mechanical mitral and aortic valve at [facility]. On Coumadin. CHF EF 30-35% Patient was yesterday working in the yard while bending down he developed severe dizziness. Nausea. Called 911. He was told by the EMT and in the ER that speech was slightly off. Slight headache. No change in vision. Per the patient speech is back to normal. Patient still feeling a bit off while walking. August 07: Blood pressure running a bit on the lower side around 1 teens. Does feel tired. Not right. at the bedside. On Lopressor 25 mg twice daily. Will change the dose to 12.5 every 8. Starting this evening. Patient does not have any vestibular symptoms. Will DC Antivert. Other medications to continue. Given CHF we will not give any IV fluids as patient oral intake is good. Active Medications Acetaminophen (Acetaminophen Tab 500 Mg Tab) 500 mg PO Q6HR PRN PRN Reason: Fever and/ or Pain Last Admin: 08/08/23 15:36 Dose: 500 mg Alprazolam (Alprazolam 0.25 Mg Tab) 0.25 mg PO HS [facility] Last Admin: 08/07/23 22:19 Dose: 0.25 mg Alprazolam (Alprazolam 0.5 Mg Tab) 0.5 mg PO BID PRN PRN Reason: Anxiety Last Admin: 08/06/23 21:55 Dose: 0.5 mg Atorvastatin Calcium (Atorvastatin 40 Mg Tab) 40 mg PO HS JAUN Last Admin: 08/07/23 21:12 Dose: 40 mg Dapagliflozin (Dapagliflozin Propanediol 10 Mg Tablet) 10 mg PO DAILY [facility] Last Admin: 08/08/23 10:29 Dose: 10 mg Ezetimibe (Ezetimibe 10 Mg Tab) 10 mg PO DAILY [facility] Last Admin: 08/08/23 10:29 Dose: 10 mg Latanoprost (Latanoprost 0.005% Ophth Drops 2.5 Ml Btl) 1 drops BOTH EYES DAILY [facility] Last Admin: 08/07/23 09:00 Dose: Not Given Levothyroxine Sodium (Levothyroxine 50 Mcg Tab) 50 mcg PO 0630 [facility] Last Admin: 08/08/23 06:13 Dose: 50 mcg Metoprolol Tartrate (Metoprolol Tartrate 12.5 Mg Tab) 12.5 mg PO TID [facility] Miscellaneous Information (Warfarin Per Pharmacy) 0 each MISCELLANE DIRECTED PRN PRN Reason: ANTICOAG *GOAL 2.5-3.5* Multivitamins (Multivitamins, Thera 1 Each Tab) 1 each PO DAILY [facility] Last Admin: 08/08/23 10:27 Dose: 1 each Naloxone HCl (Naloxone 0.4 Mg/Ml 1 Ml Vial) 0.2 mg IV Q2M PRN PRN Reason: Opioid Reversal Ondansetron HCl (Ondansetron 4 Mg/2 Ml Vial) 4 mg IVP Q8HR PRN PRN Reason: Nausea And Vomiting Pantoprazole Sodium (Pantoprazole 40 Mg Tablet) 40 mg PO DAILY [facility] Last Admin: 08/08/23 10:27 Dose: 40 mg Timolol Maleate (Timolol 0.25% Ophth Drops 5 Ml Btl) 1 drops BOTH EYES [facility] Last Admin: 08/08/23 09:57 Dose: Not Given Warfarin Sodium (Warfarin 2.5 Mg Tab) 2.5 mg PO TUTH@2100 [facility]; Protocol Warfarin Sodium (Warfarin 5 Mg Tab) 5 mg PO SUMOWEFRSA@2100 JAUN; Protocol Last Admin: 08/07/23 21:12 Dose: 5 mg Zinc Sulfate (Zinc Sulfate 220 Mg Cap) 220 mg PO [facility] Last Admin: 08/07/23 21:12 Dose: 220 mg Past medical history to include: GERD, hyperlipidemia, hypertension, osteoarthritis, obstructive sleep apnea does not use CPAP, hypothyroid, gout, anxiety, Hodgkin's treated with radiation treatment several years ago, mechanical aortic and mitral valve at [facility] 2022, chronic sinusitis Social history: 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 . Ex-smoker. No alcohol. Physical examination: VITAL SIGNS: 97.5, 84, 16, 97/64, 95% room air GENERAL: BMI 26.4, reclining in bed. EYES: Pupils equal. Conjunctiva normal. HEENT: External appearance of nose and ears normal, oral cavity grossly normal. NECK: JVD not raised; masses not palpable. HEART: First and second heart sounds are normal; no edema. LUNGS: Respiratory rate normal; clear to auscultation. ABDOMEN: Soft, nontender, liver spleen not palpable, no masses palpable. PSYCH: Alert and oriented x3; mood and affect normal. MUSCULOSKELETAL:No Clubbing/cyanosis;muscles-grossly intact INVESTIGATIONS, reviewed in the clinical context: August 06, 2023: White count 8.7 hemoglobin 14.8 platelets 221 INR 3.1 sodium 139 potassium 4.3 BUN 28 creatinine 0.86 Troponin I less than 0.012 x 3 EKG tracing personally reviewed by me-paced rhythm. Ventricular paced. CT angio head and neck: Unremarkable CT brain [August 06, 2023]: Unremarkable Chest x-ray film personally reviewed by me-cardiomegaly. Pacemaker Previous studies 2-D echocardiogram: EF 30-35% Assessment and plan: -Patient presented episode of dizziness. While working in the yard and bending down. Though he had this slight similar episode the prior evening when he got up from watching television walk after that. He was reported to have some change in speech by the EMT in the ER. Which subsequently resolved. TIA. Rule out stroke. Patient cannot have an MRI because of mechanical heart valves. Repeat CT scan ordered. Neurology consulted This does not t appear to be a vestibular/middle ear issue. Will DC Antivert. Symptoms likely from hypotension. Cut back dose of Lopressor. -GERD Omeprazole -Hyperlipidemia Zetia 10 mg a day -Essential hypertension blood pressure lower side Lopressor 12.5 every 8. -Diabetes mellitus type 2, on oral hypoglycemic jardiance -Primary osteoarthritis -Chronic congestive heart failure from systolic dysfunction EF 30-35%. Likely secondary to previous valvular abnormality Continue Jardiance Lopressor -Hypothyroid Synthroid 50 g -Mechanical aortic and mitral valve recently done at [facility] On Coumadin -Coumadin monitoring Stop Antivert. Cut back dose of Lopressor. Oral intake and fluid intake is adequate. Avoid IV fluids. Discussed with patient and Past Medical History Past Medical History: Cancer, GERD/Reflux, Hyperlipidemia, Hypertension, Osteoarthritis (OA), Skin Disorder, Sleep Apnea/CPAP/BIPAP, Thyroid Disorder Additional Past Medical History / Comment(s): dx Hodgkins Lymphoma at age 24-tx radiation therapy. "chest discomfort/tightness", one heart valve "does not close all the way", little light headed and SOB with exertion at times. no cpap used, occ. gout, eczema,. see chiropractor for back and neck. recent URI infection treated with steroids History of Any Multi-Drug Resistant Organisms: None Reported Past Surgical History: Adenoidectomy, Pacemaker, Tonsillectomy Additional Past Surgical History / Comment(s): Biopsy of abdominal organs and mass rt side of neck removed when dx. with Lymphoma, partial spleenectomy. Colonoscopy. MIA. Mechanical valve aortic and mitral valve replacement Past Anesthesia/Blood Transfusion Reactions: Motion Sickness Additional Past Anesthesia/Blood Transfusion Reaction / Comment(s): no blood transfusions Type of Cardiac Device: Permanent Pacemaker Device Placement Date:: 08/20/22 Past Psychological History: Anxiety Smoking Status: Former smoker Past Alcohol Use History: None Reported Past Drug Use History: None Reported
[2023-08-08] MEDS: METOPROLOL TARTRATE 12.5 MG TAB PO SCH (21:27)
[2023-08-09 04:41] LABS: INR 2.4 (<1.2)
[2023-08-09] MEDS: METOPROLOL TARTRATE 12.5 MG TAB PO SCH (10:53)
[2023-08-09] MEDS: MIDODRINE 5 MG TAB PO SCH (11:54)
--- NOTE | 2023-08-09 12:09 | P.PN ---
Subjective Progress Note Date: 08/09/23 I am following-up with the patient and he stated that he feels slightly better compared to initial presentation. He still continues to have some lightheadedness when standing up and walking but overall he is doing better. He denies of any focal weakness numbness. [facility]. Objective - Vital Signs Vital signs: Vital Signs Temp 97.3 F L 08/09/23 07:00 Pulse 91 08/09/23 07:00 Resp 14 08/09/23 07:00 BP 97/60 08/09/23 11:57 Pulse Ox 95 08/09/23 07:00 FiO2 Intake & Output 08/08/23 08/09/23 08/09/23 18:59 06:59 18:59 Other: Voiding Method Toilet # Voids 2 1 # Bowel Movements 1 - Exam General: Lying in bed and is not in acute distress. Neuro: The patient is awake, alert, oriented to self, place and time. Is following simple commands. No aphasia or neglect. Pupils are round, equal and reactive to light. Pupils are 3-4mm bilaterally and reactive to light. Visual valencia are full to confrontation. EOM intact and no nystagmus. Normal facial sensation to touch. No facial weakness. No dysarthria. Tongue is midline and move side to side without difficulty. Motor: Motor: Strength is 5/5 throughout. Normal tone and bulk. Sensation: Normal to touch throughout. Cerebellar: Normal finger to nose, heel to live. Reflex: 2+ throughout. Plantars: Mute bilaterally. Some of the work-up during this hospital visit consisted of: Orthostatic: Supine is 110/72 with HR 86; sitting 99/60 with HR 80 and standing is 99/63 with heart 82. Repeated orthostatic are negative. Glucose is 102 Vitamin B12: 490 TSH: 1.90 I reviewed rest of lab work-up. He had CT head on presentation then repeat on 08/07/[address] is negative for acute intracranial process. I personally reviewed and agree with report. Had repeat CT head yesterday to assess if any changes not seen on firs two since close apart: it is reported as no acute intracranial abnormality seen. Mild chronic ethmoid and left maxillary sinus disease. CTA head and neck is unremarkable. - Labs CBC & Chem 7: 08/06/23 14:30 08/06/23 14:30 Labs: Abnormal Lab Results - Last 24 Hours (Table) 08/09/23 Range/Units 03:51 PT 24.0 H (10.0-12.5) sec INR 2.4 H (<1.2) Assessment and Plan Assessment: This is a 63 y/o gentleman who presents with dizziness, generalized weakness. He feels today when he stand up he is light headed. Vertigo: Appear due to orthostatic. Had three CT head which are negative for acute process. CTA head and neck is unremarkable. Feels slight improvement. Positive orthostatic with decrease diastolic blood pressure >10 from supine to sitting. History of CAD Hx of valvular heart disease s/p mechanical aortic valve and mitral replacement on coumadin Hx cardiomypathy s/p pacemaker Remote Hodgkins lymphoma post radiation Pre-DM Plan: Repeat orthostatic vitals are negative. On Meclizine 25mg 1 tab qid for 7 days and after that PRN. Cannot obtain MRI since patient has valve replacement. Unsure if can have outpatient MRI Brain that is compatible for his valve replace and pacemaker. PT and OT are consulted Cardiology is consulted. Recommend following-up with ENT as outpatient if continues to be dizzy. Will defer the rest of medical management to primary and other specialist. The plan is discussed with patient and nurse. There is no further neurological work-up. Will sign off. Please reconsult if needed. Time with Patient: Less than 30
--- NOTE | 2023-08-09 17:51 | P.PN ---
Progress Note - Text Progress Note Date: 08/09/23 Chief Complaint: Dizzy This is a pleasant 63-year-old patient who follows with Dr. Barajas. 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 Chronic stable medical conditions include GERD, hyperlipidemia, hypertension, osteoarthritis, permanent pacemaker, hypothyroid, obstructive sleep apnea does not use CPAP, gout, anxiety. In the past has had treatment for Hodgkin's with radiation treatment. Mechanical mitral and aortic valve at [facility]. On Coumadin. CHF EF 30-35% Patient was yesterday working in the yard while bending down he developed severe dizziness. Nausea. Called 911. He was told by the EMT and in the ER that speech was slightly off. Slight headache. No change in vision. Per the patient speech is back to normal. Patient still feeling a bit off while walking. August 07: Blood pressure running a bit on the lower side around 1 teens. Does feel tired. Not right. at the bedside. On Lopressor 25 mg twice daily. Will change the dose to 12.5 every 8. Starting this evening. Patient does not have any vestibular symptoms. Will DC Antivert. Other medications to continue. Given CHF we will not give any IV fluids as patient oral intake is good. August 08: Patient just not feeling right. Tired. Blood pressure running the lower side. Changed to 12.5 mg twice daily. Cardiology was reconsulted. They have added midodrine. Lengthy discussion was held with the patient at the bedside. Patient also seems to be rather depressed. He was started on BuSpar but felt there was some side effects and had basically held the same. At this point told the patient to start on BuSpar after his current clinical picture is better. Spoke at length about lifestyle changes. Given his condition. Total time spent today about 50 minutes with over 30 minutes of discussion. Active Medications Acetaminophen (Acetaminophen Tab 500 Mg Tab) 500 mg PO Q6HR PRN PRN Reason: Fever and/ or Pain Last Admin: 08/08/23 15:36 Dose: 500 mg Alprazolam (Alprazolam 0.25 Mg Tab) 0.25 mg PO HS JAUN Last Admin: 08/08/23 22:17 Dose: 0.25 mg Alprazolam (Alprazolam 0.5 Mg Tab) 0.5 mg PO BID PRN PRN Reason: Anxiety Last Admin: 08/06/23 21:55 Dose: 0.5 mg Atorvastatin Calcium (Atorvastatin 40 Mg Tab) 40 mg PO HS [facility] Last Admin: 08/08/23 21:27 Dose: 40 mg Dapagliflozin (Dapagliflozin Propanediol 10 Mg Tablet) 10 mg PO DAILY [facility] Last Admin: 08/09/23 10:53 Dose: 10 mg Ezetimibe (Ezetimibe 10 Mg Tab) 10 mg PO DAILY [facility] Last Admin: 08/09/23 10:53 Dose: 10 mg Latanoprost (Latanoprost 0.005% Ophth Drops 2.5 Ml Btl) 1 drops BOTH EYES DAILY [facility] Last Admin: 08/08/23 21:28 Dose: 1 drops Levothyroxine Sodium (Levothyroxine 50 Mcg Tab) 50 mcg PO 0630 [facility] Last Admin: 08/09/23 07:09 Dose: 50 mcg Metoprolol Tartrate (Metoprolol Tartrate 12.5 Mg Tab) 12.5 mg PO BID [facility] Last Admin: 08/09/23 10:53 Dose: 12.5 mg Midodrine (Midodrine 5 Mg Tab) 2.5 mg PO AC-TID [facility] Last Admin: 08/09/23 11:54 Dose: 2.5 mg Miscellaneous Information (Warfarin Per Pharmacy) 0 each MISCELLANE DIRECTED PRN PRN Reason: ANTICOAG *GOAL 2.5-3.5* Multivitamins (Multivitamins, Thera 1 Each Tab) 1 each PO DAILY [facility] Last Admin: 08/09/23 10:53 Dose: 1 each Naloxone HCl (Naloxone 0.4 Mg/Ml 1 Ml Vial) 0.2 mg IV Q2M PRN PRN Reason: Opioid Reversal Ondansetron HCl (Ondansetron 4 Mg/2 Ml Vial) 4 mg IVP Q8HR PRN PRN Reason: Nausea And Vomiting Pantoprazole Sodium (Pantoprazole 40 Mg Tablet) 40 mg PO DAILY [facility] Last Admin: 08/09/23 10:53 Dose: 40 mg Timolol Maleate (Timolol 0.25% Ophth Drops 5 Ml Btl) 1 drops BOTH EYES HS [facility] Last Admin: 08/08/23 09:57 Dose: Not Given Warfarin Sodium (Warfarin 2.5 Mg Tab) 2.5 mg PO TUTH@2100 [facility]; Protocol Warfarin Sodium (Warfarin 5 Mg Tab) 5 mg PO SUMOWEFRSA@2100 [facility]; Protocol Last Admin: 08/08/23 21:27 Dose: 5 mg Zinc Sulfate (Zinc Sulfate 220 Mg Cap) 220 mg PO [facility] Last Admin: 08/08/23 21:27 Dose: 220 mg Past medical history to include: GERD, hyperlipidemia, hypertension, osteoarthritis, obstructive sleep apnea does not use CPAP, hypothyroid, gout, anxiety, Hodgkin's treated with radiation treatment several years ago, mechanical aortic and mitral valve at [facility] 2022, chronic sinusitis Social history: 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 . Ex-smoker. No alcohol. Physical examination: VITAL SIGNS: 97.8, 91, 14, 104 x 72, 97% room air GENERAL: Reclining in bed EYES: Pupils equal. Conjunctiva normal. HEENT: External appearance of nose and ears normal, oral cavity grossly normal. NECK: JVD not raised; masses not palpable. HEART: First and second heart sounds are normal; no edema. LUNGS: Respiratory rate normal; clear to auscultation. ABDOMEN: Soft, nontender, liver spleen not palpable, no masses palpable. PSYCH: Alert and oriented x3; mood and affect low MUSCULOSKELETAL:No Clubbing/cyanosis;muscles-grossly intact INVESTIGATIONS, reviewed in the clinical context: August 08: INR 2.4 B12 498 TSH 1.9 August 06, 2023: White count 8.7 hemoglobin 14.8 platelets 221 INR 3.1 sodium 139 potassium 4.3 BUN 28 creatinine 0.86 Troponin I less than 0.012 x 3 EKG tracing personally reviewed by me-paced rhythm. Ventricular paced. CT angio head and neck: Unremarkable CT brain [August 06, 2023]: Unremarkable Chest x-ray film personally reviewed by me-cardiomegaly. Pacemaker Previous studies 2-D echocardiogram: EF 30-35% Assessment and plan: -Patient presented episode of dizziness. While working in the yard and bending down. Though he had this slight similar episode the prior evening when he got up from watching television walk after that. He was reported to have some perdomo e in speech by the EMT in the ER. Which subsequently resolved. TIA. Rule out stroke. Patient cannot have an MRI because of mechanical heart valves. Repeat CT scan ordered. Neurology following This does not t appear to be a vestibular/middle ear issue. Will DC Antivert. Symptoms likely from hypotension. Cut back dose of Lopressor. -GERD Omeprazole -Hyperlipidemia Zetia 10 mg a day -Essential hypertension blood pressure lower side Cut back further Lopressor 12.5 every 12 Midodrine 2.5 mg 3 times daily added by cardiology -Diabetes mellitus type 2, on oral hypoglycemic jardiance -Primary osteoarthritis -Chronic congestive heart failure from systolic dysfunction EF 30-35%. Likely secondary to previous valvular abnormality Continue Jardiance Lopressor -Hypothyroid Synthroid 50 g -Mechanical aortic and mitral valve recently done at [facility] On Coumadin -Depression Patient started on BuSpar by his PCP. Resumed receiving discharge and follow-up after seeing his PCP. -Coumadin monitoring Lopressor cut back to 12.5 p.o. twice daily every 12. Midodrine added. Patient counseled at length. Past Medical History Past Medical History: Cancer, GERD/Reflux, Hyperlipidemia, Hypertension, Osteoarthritis (OA), Skin Disorder, Sleep Apnea/CPAP/BIPAP, Thyroid Disorder Additional Past Medical History / Comment(s): dx Hodgkins Lymphoma at age 24-tx radiation therapy. "chest discomfort/tightness", one heart valve "does not close all the way", little light headed and SOB with exertion at times. no cpap used, occ. gout, eczema,. see chiropractor for back and neck. recent URI infection treated with steroids History of Any Multi-Drug Resistant Organisms: None Reported Past Surgical History: Adenoidectomy, Pacemaker, Tonsillectomy Additional Past Surgical History / Comment(s): Biopsy of abdominal organs and mass rt side of neck removed when dx. with Lymphoma, partial spleenectomy. Colonoscopy. MIA. Mechanical valve aortic and mitral valve replacement Past Anesthesia/Blood Transfusion Reactions: Motion Sickness Additional Past Anesthesia/Blood Transfusion Reaction / Comment(s): no blood transfusions Type of Cardiac Device: Permanent Pacemaker Device Placement Date:: 08/20/22 Past Psychological History: Anxiety Smoking Status: Former smoker Past Alcohol Use History: None Reported Past Drug Use History: None Reported
[2023-08-09] MEDS: LATANOPROST 0.005% OPHTH DROPS 2.5 ML BTL BOTH EYES SCH (21:46)
--- NOTE | 2023-08-09 23:35 | PN ---
PROGRESS NOTE Alvino has history of valvular heart disease and valve replacement, who presented to hospital having had an episode of syncope, has an AICD that had been checked and has been reported as not showing any cardiac arrhythmia and was supposed to go home today. Because of dizziness and mild hypotension, I have been asked to see him again today. His blood pressures are somewhat marginal, but otherwise he seems to be doing okay. Physical exam shows systolic murmur at the apex. Blood pressures are in the 90s systolic. Rest of his exam is benign and unremarkable. I am going to add midodrine 2.5 mg three times a day and see if this will give any symptom alleviation. The patient is in 633. MMODL / IJN: [id number] /
[2023-08-10 03:35] VITALS: RESP 16
[2023-08-10 07:44] LABS: INR 2.3 (<1.2); Prothrombin Time 22.6 sec (10.0-12.5)
[2023-08-10] MEDS: TIMOLOL 0.25% OPHTH DROPS 5 ML BTL BOTH EYES SCH (08:38)
[2023-08-10] MEDS: MIDODRINE 5 MG TAB PO ONE (13:50)
[2023-08-10 14:36] VITALS: BP 127/78; PULSE 85; TEMP 97.9
--- NOTE | 2023-08-10 15:12 | P.PN ---
Subjective Progress Note Date: 08/10/23 HISTORY OF PRESENT ILLNESS: This is a 63-year-old male with a past medical history significant for coronary artery disease, valvular heart disease with mechanical aortic valve replacement and mechanical mitral valve replacement, cardiomyopathy, pacemaker implantation, diabetes, and hyperlipidemia. Patient follows in the office with Dr. Casper. We have been asked to see the patient in consultation for syncope. Patient examined at the bedside. Patient states yesterday he was in his backyard pulling weeds when he began to feel dizzy. He states he then fell to the ground. He states that he crawled to the fence to sit up. He states that he began to feel nauseous so he called 911. He states like he felt like he was going to pass out however he did not lose consciousness. He denied having any palpitations. Denied any chest pain or pressure. Denied any shortness of breath. He denies any recent illness. Vital signs are stable. Blood pressure is borderline low. Orthostatic blood pressures obtained and were negative. DIAGNOSTICS: - EKG reveals ventricular paced rhythm. - Chest xray negative for acute process. - Laboratory data: WBC 8.7. Hemoglobin 14.8. Platelet count 222. INR 3.1. Sodium 139. Potassium 4.3. BUN 28. Creatinine 0.86. Troponin negative x 3. - Current home cardiac medications include warfarin 2.5 mg on Thursday and and 5 mg all other days, Lipitor 40 mg at night, Zetia 10 mg daily, Jardiance 25 mg daily, metoprolol titrate 25 mg twice a day. - Most recent echocardiogram obtained in May 2023 revealed ejection fraction 42%, prosthetic mitral valve, prosthetic aortic valve, moderate TR - Cardiac catheterization history: June 2022 revealing 40% ostial circumflex, 99% ostial RCA, left dominant system, 3-4+ aortic regurgitation with severe aortic stenosis Patient's pacemaker was interrogated with no acute events noted. Patient may be discharged home today from a cardiac standpoint Dr. Nunez recommends decreasing Jardiance to 10 mg upon discharge (patient currently taking 25 mg) He is to follow-up postdischarge with Dr. Casper 08/09 Patient was seen yesterday by Dr. Luis Medina due to dizziness and mild hypotension. Blood pressure readings were marginal but otherwise he was doing okay. Midodrine 2.5 mg 3 times daily was added. We have been asked to reevaluate the patient today. Blood pressure 91/56, orthostatic vital signs negative. Heart rate 84, pulse ox 96% on room air. INR is 2.3, pharmacy is dosing Coumadin. Patient states that he is still having dizziness. All orthostatic vital signs have been negative. He states he does not feel steady on his feet. PHYSICAL EXAM: VITAL SIGNS: Reviewed. GENERAL: Well-developed in no acute distress. HEENT: Head is normocephalic. Pupils are equal, round. Sclerae anicteric. Mucous membranes of the mouth are moist. Neck supple. No JVD or thyromegaly LUNGS: Respirations even and unlabored. Lungs essentially clear to auscultation bilaterally. HEART: Regular rate and rhythm. S1 and S2 heard. ABDOMEN: Soft. Nondistended. Nontender. EXTREMITIES: Normal range of motion. No clubbing or cyanosis. Peripheral pulses intact. No lower extremity edema NEUROLOGIC: Awake and alert. Oriented x 3. ASSESSMENT: Presyncope Coronary artery disease without previous stenting Valvular heart disease with mechanical aortic valve replacement and mechanical mitral valve replacement History of permanent pacemaker implantation, [facility] Hyperlipidemia Diabetes PLAN: Continue current cardiac medications Orthostatic blood pressures obtained and were negative Patient's pacemaker was interrogated with no acute events noted. Increase midodrine to 5 mg 3 times daily If patient's symptoms are improved by this afternoon, patient is cleared for discharge from cardiology May follow-up with Dr. Casper in 1 to 2 weeks. Nurse practitioner note has been reviewed by physician. Signing provider agrees with the documented findings, assessment, and plan of care documented by OUTSIDE INSTALLATION MACHINIST as a scribe. Objective - Vital Signs Vital signs: Vital Signs Temp 97.6 F 08/10/23 07:00 Pulse 84 08/10/23 07:00 Resp 16 08/10/23 07:00 BP 108/68 08/10/23 07:00 Pulse Ox 96 08/10/23 07:00 FiO2 Intake & Output 08/09/23 08/10/23 08/10/23 18:59 06:59 18:59 Intake Total 118 Balance 118 Intake: Oral 118 Other: Voiding Method Toilet # Voids 3 2 - Labs CBC & Chem 7: 08/06/23 14:30 08/06/23 14:30 Labs: Abnormal Lab Results - Last 24 Hours (Table) 08/10/23 Range/Units 06:51 PT 22.6 H (10.0-12.5) sec INR 2.3 H (<1.2)
[2023-08-10] MEDS: MIDODRINE 5 MG TAB PO SCH (17:09)
--- NOTE | 2023-08-10 20:24 | P.DS ---
Providers Date of admission: 08/06/23 17:58 Expected date of discharge: 08/10/23 Attending physician: Sonny Petersen Consults: 08/07/23 11:21 Consult Physician Routine Consulting Provider: Roberto Vernon Consult Reason/Comments: poss cerebellar TIA Do you want consulting provider notified?: Yes Primary care physician: [facility] Hospital Course: Chief Complaint: Dizzy This is a pleasant 63-year-old patient who follows with Dr. Barajas. 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 Chronic stable medical conditions include GERD, hyperlipidemia, hypertension, osteoarthritis, permanent pacemaker, hypothyroid, obstructive sleep apnea does not use CPAP, gout, anxiety. In the past has had treatment for Hodgkin's with radiation treatment. Mechanical mitral and aortic valve at [facility]. On Coumadin. CHF EF 30-35% Patient was yesterday working in the yard while bending down he developed severe dizziness. Nausea. Called 911. He was told by the EMT and in the ER that speech was slightly off. Slight headache. No change in vision. Per the patient speech is back to normal. Patient still feeling a bit off while walking. August 07: Blood pressure running a bit on the lower side around 1 teens. Does feel tired. Not right. at the bedside. On Lopressor 25 mg twice daily. Will change the dose to 12.5 every 8. Starting this evening. Patient does not have any vestibular symptoms. Will DC Antivert. Other medications to continue. Given CHF we will not give any IV fluids as patient oral intake is good. August 08: Patient just not feeling right. Tired. Blood pressure running the lower side. Changed to 12.5 mg twice daily. Cardiology was reconsulted. They have added midodrine. Lengthy discussion was held with the patient at the bedside. Patient also seems to be rather depressed. He was started on BuSpar but felt there was some side effects and had basically held the same. At this point told the patient to start on BuSpar after his current clinical picture is better. Spoke at length about lifestyle changes. Given his condition. Total time spent today about 50 minutes with over 30 minutes of discussion. August 09: Cardiology was again requested to see the patient today. Midodrine was further increased to 5 mg 3 times daily. Systolic blood pressure came up to 127 before discharge. I also earlier spoke to Dr. Casper patient's fruit thinner. Updated him about the same. Discussed with patient. Discussion and discharge planning more than 35 minutes Past medical history to include: GERD, hyperlipidemia, hypertension, osteoarthritis, obstructive sleep apnea does not use CPAP, hypothyroid, gout, anxiety, Hodgkin's treated with radiation treatment several years ago, mechanical aortic and mitral valve at 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 . Ex-smoker. No alcohol. Physical examination: VITAL SIGNS: 97.9, 85, 16, 127/78, 97% room air GENERAL: Comfortable EYES: Pupils equal. Conjunctiva normal. HEENT: External appearance of nose and ears normal, oral cavity grossly normal. NECK: JVD not raised; masses not palpable. HEART: First and second heart sounds are normal; no edema. LUNGS: Respiratory rate normal; clear to auscultation. ABDOMEN: Soft, nontender, liver spleen not palpable, no masses palpable. PSYCH: Alert and oriented x3; mood and affect low MUSCULOSKELETAL:No Clubbing/cyanosis;muscles-grossly intact INVESTIGATIONS, reviewed in the clinical context: Vitamin B12 490 TSH 1.9 August 08: INR 2.4 B12 498 TSH 1.9 August 06, 2023: White count 8.7 hemoglobin 14.8 platelets 221 INR 3.1 sodium 139 potassium 4.3 BUN 28 creatinine 0.86 Troponin I less than 0.012 x 3 EKG tracing personally reviewed by me-paced rhythm. Ventricular paced. CT angio head and neck: Unremarkable CT brain [August 06, 2023]: Unremarkable Chest x-ray film personally reviewed by me-cardiomegaly. Pacemaker Previous studies 2-D echocardiogram: EF 30-35% Assessment and plan: -Dizziness from hypotension TIA. And stroke ruled out. Patient cannot have an MRI because of mechanical heart valves. CT scan x 2 negative Neurology following This does not t appear to be a vestibular/middle ear issue. Does the Lopressor cut back Midodrine added -GERD Omeprazole -Hyperlipidemia Zetia 10 mg a day -Diabetes mellitus type 2, on oral hypoglycemic jardiance, cut back by cardiology to 10 mg a day -Primary osteoarthritis -Chronic congestive heart failure from systolic dysfunction EF 30-35%. Likely secondary to previous valvular abnormality Continue Jardiance 10 mg a day Lopressor 12.5 twice daily -Hypothyroid Synthroid 50 g -Mechanical aortic and mitral valve recently done at [facility] On Coumadin -Depression Patient started on BuSpar by his PCP. Patient to discuss this further with his PCP as he had held it because of other symptoms. -Coumadin monitoring Disposition: Home Past Medical History Past Medical History: Cancer, GERD/Reflux, Hyperlipidemia, Hypertension, Osteoarthritis (OA), Skin Disorder, Sleep Apnea/CPAP/BIPAP, Thyroid Disorder Additional Past Medical History / Comment(s): dx Hodgkins Lymphoma at age 24-tx radiation therapy. "chest discomfort/tightness", one heart valve "does not close all the way", little light headed and SOB with exertion at times. no cpap used, occ. gout, eczema,. see chiropractor for back and neck. recent URI infection treated with steroids History of Any Multi-Drug Resistant Organisms: None Reported Past Surgical History: Adenoidectomy, Pacemaker, Tonsillectomy Additional Past Surgical History / Comment(s): Biopsy of abdominal organs and mass rt side of neck removed when dx. with Lymphoma, partial spleenectomy. Colonoscopy. MIA. Mechanical valve aortic and mitral valve replacement Past Anesthesia/Blood Transfusion Reactions: Motion Sickness Additional Past Anesthesia/Blood Transfusion Reaction / Comment(s): no blood transfusions Type of Cardiac Device: Permanent Pacemaker Device Placement Date:: 08/20/22 Past Psychological History: Anxiety Smoking Status: Former smoker Past Alcohol Use History: None Reported Past Drug Use History: None Reported Plan - Discharge Summary New Discharge Prescriptions: New Dapagliflozin Propanediol [Farxiga] 10 mg PO DAILY #30 tablet Metoprolol Tartrate [Lopressor] 12.5 mg PO BID 30 Days #60 tablet Midodrine [ProAmatine] 5 mg PO TID #90 tablet Continue Levothyroxine Sodium [Synthroid] 50 mcg PO DAILY Fexofenadine HCl 180 mg PO DAILY Ezetimibe [Zetia] 10 mg PO DAILY Omeprazole 20 mg PO DAILY Warfarin [Coumadin] 5 mg PO SUMOWEFRSA@2100 timoloL maleate [timoloL maleate 0.25%] 1 drop BOTH EYES HS ALPRAZolam [Xanax] 0.5 mg PO BID PRN PRN Reason: Anxiety Multivit-Mins/Iron/Folic/Lycop [Centrum Men's Tablet] 1 tab PO DAILY Warfarin [Coumadin] 2.5 mg PO TUTH@2100 Latanoprost [Latanoprost 0.005%] 1 drop BOTH EYES DAILY Cholecalciferol (Vitamin D3) [Vitamin D3 (50 Mcg = 2000 Iu)] 50 mcg PO BID Atorvastatin [Lipitor] 40 mg PO HS Zinc Gluconate [Zinc] 50 mg PO HS Discontinued Metoprolol Tartrate [Lopressor] 25 mg PO BID Empagliflozin [Jardiance] 25 mg PO DAILY Discharge Medication List Ezetimibe [Zetia] 10 mg PO DAILY 05/04/19 [History] Fexofenadine HCl 180 mg PO DAILY 05/04/19 [History] Levothyroxine Sodium [Synthroid] 50 mcg PO DAILY 05/04/19 [History] Omeprazole 20 mg PO DAILY 05/04/19 [History] Warfarin [Coumadin] 2.5 mg PO TUTH@209910/20/22 [History] Warfarin [Coumadin] 5 mg PO SUMOWEFRSA@209910/20/22 [History] ALPRAZolam [Xanax] 0.5 mg PO BID PRN 08/06/23 [History] Atorvastatin [Lipitor] 40 mg PO HS 08/06/23 [History] Cholecalciferol (Vitamin D3) [Vitamin D3 (50 Mcg = 2000 Iu)] 50 mcg PO BID 08/06/23 [History] Latanoprost [Latanoprost 0.005%] 1 drop BOTH EYES DAILY 08/06/23 [History] Multivit-Mins/Iron/Folic/Lycop [Centrum Men's Tablet] 1 tab PO DAILY 08/06/23 [History] Zinc Gluconate [Zinc] 50 mg PO HS 08/06/23 [History] timoloL maleate [timoloL maleate 0.25%] 1 drop BOTH EYES HS 08/06/23 [History] Dapagliflozin Propanediol [Farxiga] 10 mg PO DAILY #30 tablet 08/10/23 [Rx] Metoprolol Tartrate [Lopressor] 12.5 mg PO BID 30 Days #60 tablet 08/10/23 [Rx] Midodrine [ProAmatine] 5 mg PO TID #90 tablet 08/10/23 [Rx] Follow up Appointment(s)/Referral(s): Serg Casper MD [STAFF PHYSICIAN] - 1 Week Lc Barajas DO [Primary Care Provider] - 1-2 days Patient Instructions/Handouts: Near Syncope (DC) Discharge Disposition: HOME SELF-CARE
[2023-08-10] MEDS ORDERED: WARFARIN 3 MG TAB PO ONE (21:00)
[2023-08-11] MEDS ORDERED: WARFARIN 2.5 MG TAB PO SCH (21:00)
[2023-08-12] MEDS ORDERED: WARFARIN 5 MG TAB PO SCH (21:00)
== END 2023-08-10 17:22 | disposition home or self-care (01) ==
LOC: EC 14:21 → 6NMEDSUR 17:58
PROVIDERS: ADMIT Hospitalist; ATTEND Hospitalist
DX: R55 Syncope and collapse (principal); I50.9 Heart failure, unspecified; I11.0 Hypertensive heart disease with heart failure; K21.9 Gastro-esophageal reflux disease without esophagitis; E78.5 Hyperlipidemia, unspecified; Z95.0 Presence of cardiac pacemaker; E03.9 Hypothyroidism, unspecified; G47.33 Obstructive sleep apnea (adult) (pediatric); M10.9 Gout, unspecified; F41.9 Anxiety disorder, unspecified; C81.90 Hodgkin lymphoma, unspecified, unspecified site
CPT/HCPCS: 96360; 96361; 99285; 36415; 93005; 97161; 97165; 80053; 84443; 82607; 82550; 84484; 85025; 85610 ×5; 85730; 71046; 70496; 70450 ×3; 70498; G0378 ×5; Q9967

== ENCOUNTER → 2023-08-13 | Outpatient (CLI) | payer BC ==
--- NOTE | 2023-08-13 12:20 | PE ---
EXAMINATION TYPE: PET CT fusion skull to thigh DATE OF EXAM: 08/13/2023 CLINICAL INDICATION:Male, 63 years old with history of R91.8 LUNG NODULE; TECHNIQUE: Following the intravenous administration of 10.27 mCi of F-18 FDG, whole body images are performed from the skull base to the midthigh. Images are reviewed on the computer in the coronal, axial, and sagittal planes. Reconstructed rotating images are created on independent workstation and reviewed on the computer. A non-contrast CT is performed in conjunction with the PET scan. Glucose level 100 mg/dL CT DLP: 731 mGycm, Automated exposure control for dose reduction was used. COMPARISON: CT 08/06/2023, PET/CT None, FINDINGS: Mediastinal SUV mean is 2.3. Hepatic parenchyma SUV mean is 2.7. SKULL BASE AND NECK: No suspicious radiotracer activity. CHEST, MEDIASTINUM, AND HILAR REGION: * No suspicious radiotracer activity. * Area of concern along the medial aspect of the left upper lung felt to represent atelectasis. No a bnormal radiotracer uptake. ABDOMEN AND PELVIS: No suspicious radiotracer activity. MUSCULOSKELETAL STRUCTURES: No suspicious radiotracer activity. OTHER CT: Atherosclerosis of the carotid bifurcations. Coronary artery calcifications. Left chest wal l conduction device with leads remain in the right ventricle and right atrium. Post CABG changes. Edward rnotomy wires. Renal cortical cysts. Scattered IMPRESSION: Area of concern along the medial aspect of the left upper lung felt to represent atelectasis. No abno rmal radiotracer uptake. Nothing to suggest neoplastic process.
== END | disposition home or self-care (01) ==
LOC: RADPETMAIN 06:17
PROVIDERS: ATTEND Family Medicine
DX: R91.8 Other nonspecific abnormal finding of lung field (principal)
CPT/HCPCS: 78815; A9552

== ENCOUNTER → 2024-04-18 | Outpatient (CLI) | payer BC ==
--- NOTE | 2024-04-18 12:45 | CT ---
EXAMINATION TYPE: CT abdomen pelvis wo con DATE OF EXAM: 04/18/2024 HISTORY: hematuria, indigestion, back pain CT DLP: 998.40 mGycm. Automated Exposure Control for Dose Reduction was Utilized. TECHNIQUE: CT scan of the abdomen and pelvis is performed with oral but without IV contrast. COMPARISON: NONE FINDINGS: Within the limitations of a non-contrast study, the following observations are made. LUNG BASES: Surgical change the level of the aortic and mitral valves is redemonstrated. Partial visu alization of multi lead pacemaker is noted. LIVER/GB: No significant abnormality is appreciated. PANCREAS: No significant abnormality is seen. SPLEEN: Small residual splenule(s). ADRENALS: No significant abnormality is seen. KIDNEYS: No renal stones or hydronephrosis is present bilaterally. The 3.5 cm simple cortical cyst po steriorly right kidney is redemonstrated. BOWEL: A few scattered colonic diverticula. No CT evidence for acute diverticulitis. No abnormal smal l or large bowel dilatation GENITAL ORGANS: No gross abnormality seen. LYMPH NODES: No greater than 1cm abdominal or pelvic lymph nodes are appreciated. OSSEOUS STRUCTURES: Moderate narrowing of both hip joints is redemonstrated. OTHER: Surgical clips in the left pelvis again seen. IMPRESSION: No bowel obstruction. No acute findings are seen. If symptoms of hematuria persists furth er investigation with nonemergent CT urogram would be warranted. [facility], , 04/18/2024 12:43 PM
== END | disposition home or self-care (01) ==
LOC: RADCTMAIN 10:46
PROVIDERS: ATTEND Family Medicine
DX: R31.9 Hematuria, unspecified (principal); K57.30 Diverticulosis of large intestine without perforation or abscess without bleeding; Z95.0 Presence of cardiac pacemaker
CPT/HCPCS: 74176

== ENCOUNTER → 2024-08-15 | Outpatient (CLI) | payer BC ==
[2024-08-15 09:14] LABS: African American GFR (CKD) >90 (>60 ml/min/1.73 sqM); Blood Urea Nitrogen 21 mg/dL (9-20); Non-African American GFR(CKD) >90 (>60 ml/min/1.73 sqM)
--- NOTE | 2024-08-15 12:41 | CT ---
EXAMINATION TYPE: CT chest w con DATE OF EXAM: 08/15/2024 9:35 AM COMPARISON: 07/24/2023 . CLINICAL INDICATION: Male, 64 years old with history of R91.1 SOLITARY PULMONARY NODULE; PHH, irregul ar findings in last scan, follow-up TECHNIQUE: CT of the chest after IV contrast. Coronal and sagittal reconstructions performed. Contrast used:100 ml mL of Isovue [address] DLP: 409.6 mGycm, Automated exposure control for dose reduction was used. FINDINGS: Left anterior chest wall pacemaker generator with right atrial, right ventricular, and coronary sinus leads. 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 Heart normal size without pericardial effusion. Retained epicardial pacer lead. Prominent LAD coronar y artery calcification and/or stent. Ectatic upper descending thoracic aorta 3.2 cm there is scattered mild atherosclerotic calcifications throughout the thoracic aorta. A 1.2 cm thick lymph node along the right paraesophageal recess previously measured 9 mm thick. Relat ively indolent behavior. There is associated biapical pleural parenchymal scarring extending down the medial aspect of the upper lungs. Fat stranding and some soft tissue density along the right paratra cheal region appears increased here. The previously questioned 1.6 cm subpleural opacity posteromedial left apex remains unchanged. Mild emphysematous change. Areas of dependent atelectasis. 6 mm anterolateral right midlung pulmonary nodule is unchanged. Otherwise, no consolidation or pleural effusion seen. Tiny hiatal hernia. Visualized upper abdomen again shows a 3.4 cm cyst posterior right kidney and probable smaller 1 cm c yst medial upper pole left kidney. 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 Bones: No osseous destructive process. IMPRESSION: 1. COPD with mild emphysema. Redemonstrated medial biapical pleural parenchymal scarring and cicatric ial atelectasis. The configuration on the left remains unchanged. 2. On the right, there is an adjacent right paraesophageal lymph node measuring 1.2 cm versus 9 mm, p reviously. Some fat stranding and soft tissue density along the right paratracheal region may be incr eased here as well. Possibly reactive changes and progressive pleural-parenchymal scarring. Close socorro veillance follow-up suggested in 3-6 months to exclude any subtle early neoplasm. 3. The 6 mm right mid lung pulmonary nodule is unchanged. [facility], , 08/15/2024 12:39 PM
== END | disposition home or self-care (01) ==
LOC: RADCTMAIN 08:33
PROVIDERS: ATTEND Internal Medicine Critical Care Medicine
DX: R91.1 Solitary pulmonary nodule (principal); J44.9 Chronic obstructive pulmonary disease, unspecified; J43.9 Emphysema, unspecified; J98.11 Atelectasis
CPT/HCPCS: 82565; 84520; 71260; 36415; Q9967